=== PATIENT | female | born 1945 | race Caucasian/White ===

== ENCOUNTER 2016-12-14 11:51 | Inpatient (IN) | payer OTHER ==
[~2016-12-14] VITALS: Ht 157.5 cm; Wt 86.5 kg
[~2016-12-14 11:51] MED LIST: AMOX1TAB44 PO; CALCTAB5 PO; LISI-729 PO; PANT1TAB48 PO; TRAM-10 PO
[2016-12-14] MEDS ORDERED: HYDROmorphone INJ 1 MG/ML SYR ONE (12:07)
[2016-12-14] MEDS: HYDROmorphone INJ 1 MG/ML SYR IV STA ×2 (12:18→13:13)
--- NOTE | 2016-12-14 12:18 | EMERGENCY ROOM VISIT NOTE ---
History Report prepared by Eugenio: Robert Perez Under the Supervision of: Dr. Alisia Frost M.D. First contact with patient: 12:05 Chief Complaint: FALL Stated Complaint: FALL/ ANKLE PAIN History of Present Illness The patient is a 71 year old female who presents to the Emergency Room with complaints of an acute fall that occurred earlier this morning. The patient slipped down three steps that she says were wet. She has since had left ankle pain rated 9/10 in severity. The left leg was in a splint upon arrival with an obvious deformity. She denies any other injuries. The patient did not hit her head or lose consciousness. She is not on any blood thinners other than aspirin. The patient has otherwise felt okay prior to the fall. The patient has had hip surgeries in the past with Dr. Lemons, Orthopedist. Source of History: patient Onset: earlier this morning Position: other (global) Quality: other (fall) Timing: other (acute) Associated Symptoms: No LOC Note: Positive left ankle pain. Review of Systems See HPI for pertinent positives & negatives. A total of 10 systems reviewed and were otherwise negative. Past Medical & Surgical Medical Problems: (1) CHEST PAIN NOS (2) CHRONIC KIDNEY DISEASE, UNSPECIFIED (3) Hiatal hernia (4) Hypertension Nos (5) Knee Joint Replacement Status Family History Cancer Heart disease Social History Smoking Status: Never Smoker Marital Status: Occupation Status: retired Current/Historical Medications Scheduled Amoxicillin & Pot Clavulanate (Amoxicillin/Clavulanate P), 1 TAB PO QAM Calcium (Caltrate), 600 MG PO QAM Lisinopril (Zestril), 5 MG PO QAM Pantoprazole (Protonix), 40 MG PO QAM Scheduled PRN Tramadol (Ultram), 50 MG PO Q8H PRN for Pain Allergies Coded Allergies: No Known Allergies (Unverified , 06/23/16) Physical Exam Vital Signs Date Time Temp Pulse Resp B/P Pulse Ox O2 Delivery O2 Flow Rate FiO2 12/14/16 13:28 78 12/14/16 13:25 79 18 154/71 93 Room Air 12/14/16 11:56 36.6 84 18 161/86 98 Room Air Physical Exam CONSTITUTIONAL: Severe painful distress. HEENT: No icterus, moist mucous membranes NECK: No meningismus, trachea is midline. CARDIOVASCULAR: Regular rate, normal perfusion RESPIRATORY: Unlabored breathing. Clear to auscultation. GASTROINTESTINAL: Non-tender GENITOURINARY: No flank tenderness MUSCULOSKELETAL: Gross deformity of the left ankle, neurovascularly intact. NEUROLOGIC: No acute gross focal deficits. PSYCHIATRIC: Normal affect SKIN: Normal for ethnicity. Medical Decision & Procedures ER Provider Diagnostic Interpretation: X-ray results as stated below per interpretation by me and the radiologist. Left ankle 2 views CLINICAL HISTORY: Left ankle injury and pain. COMPARISON STUDY: None. FINDINGS: Displaced fractures involving the medial malleolus and distal fibula with associated lateral dislocation of the talus in relation to the tibia. There is diffuse soft tissue swelling. Plantar heel spur. The medial and lateral malleoli are fractures demonstrate up to 1 cm of lateral displacement. There is mild overlap of the lateral tibiotalar dislocation. IMPRESSION: A displaced bimalleolar left ankle fracture with a lateral ankle dislocation. Electronically signed by: Yony Royal M.D. 12/14/2016 1:12 PM Dictated Date/Time: 12/14/2016 1:09 PM Laboratory Results 12/14/16 13:10 Red Blood Count 3.86, Mean Corpuscular Volume 88.9, Mean Corpuscular Hemoglobin 29.8, Mean Corpuscular Hemoglobin Concent 33.5, Mean Platelet Volume 10.6, Neutrophils (%) (Auto) 76.2, Lymphocytes (%) (Auto) 16.5, Monocytes (%) (Auto) 5.8, Eosinophils (%) (Auto) 1.1, Basophils (%) (Auto) 0.1, Neutrophils # (Auto) 5.76, Lymphocytes # (Auto) 1.25, Monocytes # (Auto) 0.44, Eosinophils # (Auto) 0.08, Basophils # (Auto) 0.01 12/14/16 13:10 Test 12/14/16 13:10 White Blood Count 7.56 K/uL (4.8-10.8) Red Blood Count 3.86 M/uL (4.2-5.4) Hemoglobin 11.5 g/dL (12.0-16.0) Hematocrit 34.3 % (37-47) Mean Corpuscular Volume 88.9 fL (80-100) Mean Corpuscular Hemoglobin 29.8 pg (25-34) Mean Corpuscular Hemoglobin Concent 33.5 g/dl (32-36) Platelet Count 180 K/uL (130-400) Mean Platelet Volume 10.6 fL (7.4-10.4) Neutrophils (%) (Auto) 76.2 % Lymphocytes (%) (Auto) 16.5 % Monocytes (%) (Auto) 5.8 % Eosinophils (%) (Auto) 1.1 % Basophils (%) (Auto) 0.1 % Neutrophils # (Auto) 5.76 K/uL (1.4-6.5) Lymphocytes # (Auto) 1.25 K/uL (1.2-3.4) Monocytes # (Auto) 0.44 K/uL (0.11-0.59) Eosinophils # (Auto) 0.08 K/uL (0-0.5) Basophils # (Auto) 0.01 K/uL (0-0.2) RDW Standard Deviation 42.9 fL (36.4-46.3) RDW Coefficient of Variation 13.4 % (11.5-14.5) Immature Granulocyte % (Auto) 0.3 % Immature Granulocyte # (Auto) 0.02 K/uL (0.00-0.02) Anion Gap 9.0 mmol/L (3-11) Est Creatinine Clear Calc Drug Dose 42.6 ml/min Estimated GFR () 51.9 Estimated GFR (Non- 44.8 BUN/Creatinine Ratio 17.6 (10-20) Calcium Level 8.8 mg/dl (8.5-10.1) Labs reviewed by ED physician. Medications Administered Medications (Trade) Dose Ordered Sig/Lorri Route Start Time Stop Time Status Last Admin Dose Admin Hydromorphone HCl (Dilaudid Inj) 1 mg STK-MED ONCE .ROUTE 12/14/16 12:07 12/14/16 12:09 DC 12/14/16 12:20 1 MG Hydromorphone HCl (Dilaudid Inj) 1 mg PRN STAT IV 12/14/16 12:18 12/14/16 12:20 DC 12/14/16 13:13 1 MG Lorazepam (Ativan Inj) 0.5 mg NOW STAT IV 12/14/16 12:20 12/14/16 12:21 DC 12/14/16 12:37 0.5 MG ECG Indication: other (fall) Rate (beats per minute): 81 Rhythm: normal sinus Findings: other (normal axis, normal ST segments.) ED Course 1206: Past medical records reviewed. The patient was evaluated in room C4. A complete history and physical examination was performed. 1215: Ankle reduction attempted by me. 1218: Dilaudid 1 mg IV. 1220: Ativan 0.5 mg IV. 1352: Discussed the case with Jose L Shoemaker PA-C, [facility]. He will consult on the case. 1359: [facility] The patient will be evaluated. Medical Decision Differential diagnosis includes fracture. 71-year-old presents to the emergency department with her family for evaluation of left ankle deformity. She reports she's been and are otherwise normal state of health without cardiac, pulmonary or neurologic complaints of late. She states she simply tripped and fell on the way down the stairs with subsequent injury to her ankle and markedly deformity. She denies any head injury or other injuries. EKG demonstrated demonstrated a sinus rhythm without ST changes. Labs unremarkable. Initial reduction at the time of ED presentation was unsuccessful secondary to pain and muscular tenseness. After Dilaudid 1 mg IV and 0.5 mg Ativan patient was comfortable and reduction achieved without difficulty. Splint applied. Post reduction films obtained. Admission arranged with hospital service and consultation with orthopedics on-call. Consults Time Called: 1340 Consulting Physician: Jose L Shoemaker PA-C, [facility]. Returned Call: 1352 1352: Discussed the case with Jose L Shoemaker PA-C, [facility]. Additional Consults: Time Called: 1353 Consulted Physician: [facility]. Returned Call: 1359 Additional Comments: 1359: Discussed the case with [facility]. The patient will be evaluated. Impression Primary Impression: Ankle fracture Scribe Attestation The scribe's documentation has been prepared under my direction and personally reviewed by me in its entirety. I confirm that the note above accurately reflects all work, treatment, procedures, and medical decision making performed by me. Departure Information Dispostion Being Evaluated By Hospitalist Jamie Siddiqui M.D. (PCP) Patient Instructions My [facility]
[2016-12-14] MEDS ORDERED: LORAZEPAM 2 MG/ML 1 ML VIAL IV STA (12:20)
--- NOTE | 2016-12-14 13:13 | DIAGNOSTIC IMAGING REPORT ---
Left ankle 2 views CLINICAL HISTORY: Left ankle injury and pain. COMPARISON STUDY: None. FINDINGS: Displaced fractures involving the medial malleolus and distal fibula with associated lateral dislocation of the talus in relation to the tibia. There is diffuse soft tissue swelling. Plantar heel spur. The medial and lateral malleoli are fractures demonstrate up to 1 cm of lateral displacement. There is mild overlap of the lateral tibiotalar dislocation. IMPRESSION: A displaced bimalleolar left ankle fracture with a lateral ankle dislocation. Electronically signed by: Yony Royal M.D. 12/14/2016 1:12 PM Dictated Date/Time: 12/14/2016 1:09 PM
[2016-12-14 13:21] LABS: BASO % 0.1 %; BASO ABS # 0.01 K/uL (0-0.2); COMPLETE YES; EOS % 1.1 %; HEMATOCRIT 34.3 % (37-47); IG% 0.3 %; LYMPH % 16.5 %; LYMPH ABS # 1.25 K/uL (1.2-3.4); MEAN CELL VOLUME 88.9 fL (80-100); MEAN CORPUSCULAR HEMOGLOBIN 29.8 pg (25-34); MEAN CORPUSCULAR HGB CONC 33.5 g/dl (32-36); MEAN PLATELET VOLUME 10.6 fL (7.4-10.4); MONO % 5.8 %; NEUT % 76.2 %; PLATELET COUNT 180 K/uL (130-400); RED BLOOD COUNT 3.86 M/uL (4.2-5.4); WHITE BLOOD COUNT 7.56 K/uL (4.8-10.8)
[2016-12-14 13:38] LABS: BUN/CREATININE RATIO 17.6 (10-20); CALCIUM 8.8 mg/dl (8.5-10.1); CREATININE 1.2 mg/dl (0.60-1.20)
--- NOTE | 2016-12-14 14:09 | DIAGNOSTIC IMAGING REPORT ---
LEFT ANKLE 3 VIEWS CLINICAL HISTORY: Postreduction examination. FINDINGS: 3 portable views of the left ankle are correlated with study performed earlier the same day 12/14/2016. The examination is performed through a cast, obscuring fine bony detail. The skeletal structures are osteopenic. Again seen is a distracted spiral fracture through the distal fibular shaft. There is also avulsion of the medial malleolus. There is lateral distraction of the talus at the tibiotalar joint by at least 2 cm. Alignment has improved from the prereduction examination. There is also anterior distraction of the talus at the tibiotalar joint. There is a joint effusion with overlying soft tissue edema. A large plantar calcaneal enthesophyte is observed. Degenerative spurring is seen along the dorsal aspect of the tarsal bones. IMPRESSION: 1. Bimalleolar fracture as above. 2. There is persistent dislocation at the tibiotalar joint. Alignment has improved from the prereduction examination. Electronically signed by: Isai Quintanilla M.D. 12/14/2016 2:07 PM Dictated Date/Time: 12/14/2016 2:04 PM
[2016-12-14] MEDS ORDERED: MoRPHine SULFATE 2 MG/ML CARP ONE (14:19)
[2016-12-14] MEDS ORDERED: NURSING VERBAL MED ORDER ONE ×2 (14:30→20:30)
[2016-12-14] MEDS ORDERED: ACETAMINOPHEN 325 MG TAB PO PRN (14:45)
[2016-12-14] MEDS ORDERED: HEPARIN SOD 5000 UNIT/0.5 ML CARP SQ SCH (14:45)
[2016-12-14] MEDS ORDERED: ONDANSETRON INJ 2 MG/ML 2 ML VIAL IV PRN (14:45)
[2016-12-14] MEDS ORDERED: DiphenhydrAMINE HCL 50 MG/ML VIAL IV PRN (15:00)
--- NOTE | 2016-12-14 15:04 | DIAGNOSTIC IMAGING REPORT ---
CHEST ONE VIEW PORTABLE HISTORY: Preop. COMPARISON: Chest 06/11/2016. FINDINGS: There is again noted a large hiatus hernia. The heart is normal in size. A few bibasilar linear densities favor subsegmental atelectasis. The lungs are otherwise clear. No pleural effusions. No pneumothorax. IMPRESSION: No significant change compared to the prior study. No acute process. Stable large hiatus hernia. Electronically signed by: Yony Royal M.D. 12/14/2016 3:02 PM Dictated Date/Time: 12/14/2016 3:01 PM
[2016-12-14] MEDS ORDERED: MULT-506 PO (15:09)
[2016-12-14] MEDS ORDERED: HydrALAZINE HCL 20 MG/ML VIAL IV. PRN (15:15)
[2016-12-14] MEDS ORDERED: MoRPHine SULFATE 10 MG/ML CARP/VIAL IV PRN (15:15)
[2016-12-14] MEDS ORDERED: MoRPHine SULFATE 4 MG/ML 1 ML CARP\\VIAL IV PRN (15:15)
--- NOTE | 2016-12-14 15:22 | DIAGNOSTIC IMAGING REPORT ---
LEFT ANKLE 2 VIEWS CLINICAL HISTORY: Post reduction films AXIAL COMPARISON: 12/14/2016 DISCUSSION: 3 portable views are provided for interpretation. A fiberglass cast obscures the fine bony detail. There is a trimalleolar fracture present. There is persistent disruption of the ankle mortise with lateral translation of the talus with respect to the tibia. There is also slight posterior translation of the talus with respect to the tibia. IMPRESSION: 1. Trimalleolar fracture 2. Persistent disruption of the ankle mortise. Alignment is slightly improved when compared the preceding study. Electronically signed by: Jm Hubbard M.D. 12/14/2016 3:20 PM Dictated Date/Time: 12/14/2016 3:18 PM
--- NOTE | 2016-12-14 15:28 | CONSULTATION REPORT ---
DATE OF CONSULTATION: 12/14/2016 REASON FOR CONSULT: Left ankle fracture. HISTORY OF PRESENT ILLNESS: The patient is a 71-year-old white female who states that while walking down some stairs this morning she ended up slipping and falling. It was a witnessed fall with family and they are here presently with her. The patient denies any shortness of breath, chest pain or lightheadedness prior to the fall or after. She denies hitting her head and denies loss of consciousness. She had immediate pain in her left ankle and noted deformity without any bleeding. She was brought to the Emergency Room here at [facility] and was seen by the staff. X-rays were taken and it was found that she had an ankle fracture dislocation of the left ankle. Dr. 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 Jones pending medical clearance. PAST MEDICAL HISTORY: Hypertension, chronic kidney disease, history of hiatal hernia and DJD. She denies diabetes mellitus, tuberculosis, hepatitis, COPD, or rheumatic fever. PAST SURGICAL HISTORY: She has had both of her knees replaced by Dr. Taz Lemons. She has had a left total hip arthroplasty performed in the past by Dr. Lemons as well, cholecystectomy. FAMILY HISTORY: Father, history of heart disease and due to PR; history of breast carcinoma with 3 of her sisters. SOCIAL HISTORY: The patient is a . She does not use tobacco and does not use alcohol. MEDICATIONS: Lisinopril 5 mg p.o. daily, tramadol 50 mg p.o. q. 8 hours p.r.n. pain. ALLERGIES: NKDA. REVIEW OF SYSTEMS: As per admitting history and physical. PHYSICAL EXAMINATION: VITAL SIGNS: Current vital signs done at 1422 showed pulse 63, respirations 19, BP 225/70, pulse ox 98 on room air, temperature on admission to the ER was 36.6. GENERAL: The patient is a well-developed, well-nourished white female who is awake and alert to person and place. She is in [id number] amount of distress due to left ankle pain. She is pleasant and cooperative and answers all questions appropriately. EXTREMITIES: On examination of her left ankle, she has a current splint that was put on. However, the ankle on post-reduction films showed that it had slipped out reduction and needed to reduce one more time. At that point, the large portion of the splint was removed, although much of the cotton Webril was left intact. She has no open wounds that I can appreciate and the ankle is obviously swollen due to fracture. It also is mildly displaced at this time. Toes are pink and warm. Sensation is intact. She is able to move her toes quite well and capillary refill is less than 2 seconds. She denies pain in her left knee at this time. The right lower extremity is benign as far as pain and has good range of motion of her hip, knee and ankle. No pain in her left hip at this time and knee range of motion and hip range of motion are limited somewhat due to left ankle pain because the patient does with the extremity lifted. She has no pain in the bilateral shoulders, elbows or wrists and has good range of motion of both. She denies pain on palpation of her anterior, posterior neck at this point in time and otherwise exam is normal. Pulses are intact and 2/4 bilaterally. Neurovascular is intact as well. ASSESSMENT: Left ankle fracture dislocation. PLAN: The patient will need to undergo a re-reduction of her left ankle. Otherwise, she will be admitted by [facility] service and we will be the consultants. The patient will be placed on bed rest versus a bedside commode privileges with the left ankle to be placed up on at least 2 pillows for elevation, and ice and pain control will be provided by orthopedic service. Plans will be for ORIF of the left ankle tomorrow by Dr. Jones as long as the patient is medically cleared. PROCEDURES IN THE EMERGENCY ROOM: The patient was given 2 mg of morphine. The Orthoglass splint had been removed prior to examine the ankle. At that time, a little bit more of cotton Webril was applied to the extremity and then with gentle longitudinal traction and some lateral pressure, the ankle was then reduced and placed in another Orthoglass splint and the splint was let to dry and the patient tolerated the procedure well, was then placed on 2 pillows for elevation. After the procedure, her toes were pink and warm and had good sensation and she was moving the toes quite well. [facility]
--- NOTE | 2016-12-14 15:46 | History and Physical ---
History & Physical Date & Time of Service: Dec 14, 2016 at 15:19 Chief Complaint: Fall/ Left Ankle Pain Primary Care Physician: Jamie Guaman M.D. History of Present Illness 71 year old female who presents to the ER with left ankle pain after falling down the stairs today. Patient reports she was going down her outside stairs when she slipped on a wet step. She denies striking her head or loss of coconsciousness. She denies any associated lightheadedness, dizziness, or diaphoresis. No chest pain or shortness of breath. Reports she has been feeling well recently. Tolerating day to day activities without any problems or experiencing exertional chest pain or shortness of breath. She denies abdominal pain, nausea, vomiting, or diarrhea. No fever or chills. She denies any urinary symptoms. In the ER, patient is found to have a displaced bimalleolar left ankle fracture with a lateral ankle dislocation. Labs are unremarkable. BP is elevated however patient appears to be in a significant amount of pain. Vitals are otherwise stable. Past Medical/Surgical History Medical Problems: (1) CKD (chronic kidney disease), stage III Status: Chronic (2) Hiatal hernia Status: Chronic (3) HLD (hyperlipidemia) Status: Chronic (4) HTN (hypertension) Status: Chronic (5) Osteoporosis Status: Chronic Surgical Problems: (1) History of bilateral knee replacement Status: Chronic (2) History of cataract surgery Status: Chronic (3) History of total hip replacement Status: Chronic (4) Hx of cholecystectomy Status: Chronic Social History Smoking Status: Never Smoker Alcohol Use: none Housing status: lives with family Immunizations History of Influenza Vaccine: Yes Influenza Vaccine Date: Sep 07, 2016 History of Tetanus Vaccine?: Yes Tetanus Immunization Date: Sep 13, 2015 History of Pneumococcal: Yes Pneumococcal Date: Nov 04, 2015 Multi-Drug Resistant Organisms History of MDRO: No Allergies Coded Allergies: No Known Allergies (Unverified , 12/14/16) Home Medications Scheduled Lisinopril (Zestril), 5 MG PO QAM Multivitamin (Multivitamin), 1 TAB PO DAILY Scheduled PRN Tramadol (Ultram), 50 MG PO Q8H PRN for Pain Review of Systems 10 point review of systems was completed with the pertinent positives and negatives noted per the HPI Physical Exam Vital Signs Date Time Temp Pulse Resp B/P Pulse Ox O2 Delivery O2 Flow Rate FiO2 12/14/16 14:22 63 19 225/70 98 Room Air 12/14/16 13:28 78 12/14/16 13:25 79 18 154/71 93 Room Air 12/14/16 11:56 36.6 84 18 161/86 98 Room Air General Appearance: + mild distress (due to pain, currently having ankle casted ) Head: normocephalic Eyes: normal inspection ENT: hearing grossly normal Neck: supple, no JVD Respiratory/Chest: lungs clear, normal breath sounds, no respiratory distress Cardiovascular: regular rate, rhythm, no edema, normal peripheral pulses Abdomen/GI: normal bowel sounds, non tender, soft Extremities/Musculoskelatal: + pertinent finding (left ankle being placed in cast by orthopedics, CSM checks intact) Neurologic/Psych: no motor/sensory deficits, alert, normal mood/affect, oriented x 3 Skin: normal color, warm/dry Diagnostics Laboratory Results Results Past 24 Hours Test 12/14/16 13:10 Range/Units White Blood Count 7.56 4.8-10.8 K/uL Red Blood Count 3.86 4.2-5.4 M/uL Hemoglobin 11.5 12.0-16.0 g/dL Hematocrit 34.3 37-47 % Mean Corpuscular Volume 88.9 80-100 fL Mean Corpuscular Hemoglobin 29.8 25-34 pg Mean Corpuscular Hemoglobin Concent 33.5 32-36 g/dl Platelet Count 180 130-400 K/uL Mean Platelet Volume 10.6 7.4-10.4 fL Neutrophils (%) (Auto) 76.2 % Lymphocytes (%) (Auto) 16.5 % Monocytes (%) (Auto) 5.8 % Eosinophils (%) (Auto) 1.1 % Basophils (%) (Auto) 0.1 % Neutrophils # (Auto) 5.76 1.4-6.5 K/uL Lymphocytes # (Auto) 1.25 1.2-3.4 K/uL Monocytes # (Auto) 0.44 0.11-0.59 K/uL Eosinophils # (Auto) 0.08 0-0.5 K/uL Basophils # (Auto) 0.01 0-0.2 K/uL RDW Standard Deviation 42.9 36.4-46.3 fL RDW Coefficient of Variation 13.4 11.5-14.5 % Immature Granulocyte % (Auto) 0.3 % Immature Granulocyte # (Auto) 0.02 0.00-0.02 K/uL Sodium Level 143 136-145 mmol/L Potassium Level 4.0 3.5-5.1 mmol/L Chloride Level 110 98-107 mmol/L Carbon Dioxide Level 24 21-32 mmol/L Anion Gap 9.0 3-11 mmol/L Blood Urea Nitrogen 21 7-18 mg/dl Creatinine 1.20 0.60-1.20 mg/dl Est Creatinine Clear Calc Drug Dose 42.6 ml/min Estimated GFR () 51.9 Estimated GFR (Non- 44.8 BUN/Creatinine Ratio 17.6 10-20 Random Glucose 111 70-99 mg/dl Calcium Level 8.8 8.5-10.1 mg/dl Diagnostic Radiology LEFT ANKLE XR IMPRESSION: A displaced bimalleolar left ankle fracture with a lateral ankle dislocation. CXR IMPRESSION: No significant change compared to the prior study. No acute process. Stable large hiatus hernia. Impression Assessment and Plan LEFT ANKLE FRACTURE - admit to med/surg - fall appears to be mechanical - will require surgical repair - management as per ortho - due to patient's lack of cardiac history and cardiac complaints, she will be considered low risk and can proceed to surgery tomorrow without any further testing - EKG without ischemic changes, CXR without acute findings - noted normal stress echo in 2012 HTN - BP currently elevated, likely due to pain - continue home dose of Lisinopril, provide pain control - PRN Hydralazine CKD STAGE III - baseline creat runs in the low 1's, noted to be 1.2 today - continue to monitor, avoid nephrotoxic agents when able DVT PROPHYLAXIS - SCDs due to planned surgery tomorrow DISPO - In my clinical judgment this beneficiary meets acute admission criteria, established by [facility], that includes being hospitalized through two midnights. Attending Addendum Pt was seen and examined at bedside. 71 year old female with PMH of CKD, HTN, Dyslipidemia and hiatal hernia presents to the ER with left ankle fracture after she fell down from the stairs. she said that she slipped on a wet step. she said that she did not passed out or hit her head. Pt denies any chest pain, palpitation, dizziness and SOB. Granddaughters said pt is very active. Before the ankle fracture she used to go with family to do grocery. she use a cane to ambulate. she never had any SOB, orthopnea and chest pain. General- No acute distress Head- atraumatic Eyes- PERRL, EOMI ENT- oropharynx clear Neck- supple, no JVD Lungs- clear to auscultation and percussion Heart- regular rhythm; no murmur Extremities- no calf tenderness, Left ankle tenderness, left lower ext has cast on. LEFT ANKLE FRACTURE s/p mechanical fall Ankle xray showed trimalleolar fracture Ortho on board planning to go to surgery tomorrow Denies any history chest pain, palpitation, orthopnea and sob she used to go to the grocery store with family without any distress she had a functional status capacity with a METS greater than 4 before the ankle fracture last stress echo was 2012 that was negative for ischemia EKG shown no significant ST changes. CXR negative will repeat EKG in am She is medically stable to proceed to surgery tomorrow. Will keep NPO after midnight Lab, imaging and EKG reviewed Please refer to Marleen ELLIS documentation for others problems Daniel Subramanian MD VTE Prophylaxis VTE Risk Assessment Done? Y/N: Yes Risk Level: Moderate
[2016-12-14 16:49] VITALS: BP 137/79; PULSE 73; TEMP 36.5; O2SAT 96; Ht 157.5 cm; Wt 86.5 kg
[2016-12-14 17:10] VITALS: BP 137/79; PULSE 73; TEMP 36.5; O2SAT 96
[2016-12-14] MEDS: MoRPHine SULFATE 2 MG/ML CARP IV PRN ×2 (19:24→20:10)
[2016-12-14] MEDS ORDERED: LORAZEPAM 0.5 MG TAB PO PRN (20:00)
[2016-12-14 23:16] VITALS: BP 121/73; PULSE 64; TEMP 36.9; O2SAT 97
[2016-12-15] VITALS (7 sets, daily range): BP systolic 117–137; BP diastolic 71–80; PULSE 53–96; TEMP 36.5–37.1; O2SAT 95–99
[2016-12-15] MEDS: MoRPHine SULFATE 2 MG/ML CARP IV PRN (05:50)
[2016-12-15] MEDS ORDERED: CEFAZOLIN 2000 MG/60 ML D5W IV SCH (06:00)
[2016-12-15] MEDS ORDERED: CEFAZOLIN IV 2,000 MG in DEXTROSE 5% 50ML 50 ML IV SCH (06:00)
[2016-12-15 07:39] LABS: HEMATOCRIT 35.6 % (37-47); MEAN CELL VOLUME 90.6 fL (80-100); MEAN CORPUSCULAR HEMOGLOBIN 29.5 pg (25-34); MEAN CORPUSCULAR HGB CONC 32.6 g/dl (32-36); MEAN PLATELET VOLUME 10.9 fL (7.4-10.4); PLATELET COUNT 178 K/uL (130-400); RED BLOOD COUNT 3.93 M/uL (4.2-5.4); WHITE BLOOD COUNT 4.74 K/uL (4.8-10.8)
[2016-12-15 08:02] LABS: BUN/CREATININE RATIO 17.4 (10-20); CALCIUM 9.1 mg/dl (8.5-10.1); POTASSIUM 4.2 mmol/L (3.5-5.1)
[2016-12-15] MEDS: MULTIVITAMIN TAB PO SCH (09:00)
[2016-12-15] MEDS: LISINOPRIL 5 MG TAB PO SCH (09:00)
--- NOTE | 2016-12-15 10:08 | Orthopedic Progress Note ---
Orthopedic Progress Note Date of Service Dec 15, 2016. Subjective Reports: feeling well, Denies: SOB, chest pain, complaints, light headedness, nausea / vomiting Additional Notes: Patient comfortable this AM. Objective calves soft nontender, N/V intact, splint C/D/I, capillary refill less than 2 sec., A&O x3, toes mobile Date Time Temp Pulse Resp B/P Pulse Ox O2 Delivery O2 Flow Rate FiO2 12/15/16 07:05 36.5 76 18 117/74 96 Room Air 12/15/16 00:42 Room Air 12/14/16 23:16 36.9 64 16 121/73 97 Room Air 12/14/16 17:10 36.5 73 18 137/79 96 Room Air 12/14/16 16:49 36.5 73 18 137/79 96 Room Air 12/14/16 15:53 83 18 121/59 93 Room Air 12/14/16 14:22 63 19 225/70 98 Room Air 12/14/16 13:28 78 12/14/16 13:25 79 18 154/71 93 Room Air 12/14/16 11:56 36.6 84 18 161/86 98 Room Air Laboratory Results 24 Hours: Test 12/14/16 13:10 12/15/16 06:59 White Blood Count 7.56 K/uL Red Blood Count 3.86 M/uL Hemoglobin 11.5 g/dL 11.6 g/dL Hematocrit 34.3 % 35.6 % Mean Corpuscular Volume 88.9 fL Mean Corpuscular Hemoglobin 29.8 pg Mean Corpuscular Hemoglobin Concent 33.5 g/dl Platelet Count 180 K/uL Mean Platelet Volume 10.6 fL Neutrophils (%) (Auto) 76.2 % Lymphocytes (%) (Auto) 16.5 % Monocytes (%) (Auto) 5.8 % Eosinophils (%) (Auto) 1.1 % Basophils (%) (Auto) 0.1 % Neutrophils # (Auto) 5.76 K/uL Lymphocytes # (Auto) 1.25 K/uL Monocytes # (Auto) 0.44 K/uL Eosinophils # (Auto) 0.08 K/uL Basophils # (Auto) 0.01 K/uL Assessment & Plan Assessment: Left ankle fracture/ dislocation s/p reduction in the ER Plan: Patient is NPO for ORIF Left ankle fracture today per Dr. Jones. Consent obtained.
[2016-12-15] MEDS ORDERED: LIDOCAINE HCL 2% 2 ML VIAL (20MG/ML) ONE (15:57)
[2016-12-15] MEDS ORDERED: ROCURONIUM BROMIDE 10 MG/ML 5 ML VIAL ONE (15:57)
[2016-12-15] MEDS ORDERED: PROPOFOL IV EMULSION 10 MG/ML 20 ML VIAL IV ONE (15:57)
[2016-12-15] MEDS ORDERED: FENTANYL CITRATE INJ 50 MCG/1 ML 2 ML VIAL ONE ×3 (15:58→17:30)
[2016-12-15] MEDS ORDERED: ATROPINE SULFATE 0.1 MG/ML 5ML SYR IV PRN (16:00)
[2016-12-15] MEDS ORDERED: NALOXONE HCL 0.4 MG/1 ML VIAL/CARP IV PRN (16:00)
[2016-12-15] MEDS ORDERED: HYDROmorphone INJ 2 MG/ML SYR/VIAL IV PRN (16:00)
[2016-12-15] MEDS ORDERED: MEPERIDINE HCL 25 MG/ML CARP IV PRN (16:00)
[2016-12-15] MEDS ORDERED: PHENYLEPHRINE 100MCG/ML 5ML SYR IV PRN (16:00)
[2016-12-15] MEDS ORDERED: FENTANYL CITRATE INJ 50 MCG/1 ML 2 ML VIAL IV PRN (16:00)
[2016-12-15] MEDS ORDERED: EpHEDrine SULFATE INJ 50 MG/ML AMP IV PRN (16:00)
[2016-12-15] MEDS ORDERED: LABETALOL HCL IV 5 MG/ML 20ML IV PRN (16:00)
[2016-12-15] MEDS ORDERED: ONDANSETRON INJ 2 MG/ML 2 ML VIAL IV PRN (16:00)
[2016-12-15] MEDS ORDERED: FLUMAZENIL 0.1 MG/1 ML 10 ML VIAL IV PRN (16:00)
--- NOTE | 2016-12-15 16:06 | History & Physical Bridge Note ---
H&P Re-Evaluation Bridge Note: I have examined the patient, reviewed the History & Physical and in the interval since the performance of the History & Physical I have noted the following changes of clinical significance: No changes noted
[2016-12-15] MEDS ORDERED: ONDANSETRON INJ 2 MG/ML 2 ML VIAL ONE (16:34)
[2016-12-15] MEDS ORDERED: DEXAMETHASONE SOD INJ 4 MG/ML VIAL ONE (16:34)
[2016-12-15] MEDS ORDERED: BUPIVACAINE 0.5% INJ INJ ONE (18:10)
[2016-12-15] MEDS ORDERED: GLYCOPYRROLATE INJ 0.2 MG/ML VIAL ONE (18:12)
[2016-12-15] MEDS ORDERED: LABETALOL HCL IV 5 MG/ML 20ML ONE (18:12)
[2016-12-15] MEDS ORDERED: NEOSTIGMINE METHYLSULFATE 5 MG/5 ML SYR ONE (18:12)
--- NOTE | 2016-12-15 18:35 | [facility] Operative Report ---
Operative Report Operative Date Dec 15, 2016. Pre-Operative Diagnosis Left Ankle Fracture,trimalleolar displaced s/p fx dislocation Post-Operative Diagnosis same Procedure(s) Performed ORIF bimalleolar fixation of trimalleolar fracture left ankle Surgeon Dr. Jones Organisation And Methods Analyst Surgeon(s) Jose L Shoemaker PA-C Estimated Blood Loss 10ML Findings as above unstable trimalleolar fracture Specimens None Drains none Anesthesia general Complication(s) None Disposition Recovery Room / PACU Indications as above I attest to the content of the Intraoperative Record and any orders documented therein. Any exceptions are noted below.
[2016-12-15] MEDS ORDERED: ALUMINUM/MAGNESIUM/SIMETH (MAALOX MAX) 30 ML UDC PO PRN (18:45)
[2016-12-15] MEDS ORDERED: MAGNESIUM HYDROXIDE SUSP 30 ML UDC PO PRN (18:45)
[2016-12-15] MEDS ORDERED: ZOLPIDEM TARTRATE 5 MG TAB PO PRN (18:45)
[2016-12-15] MEDS ORDERED: DiphenhydrAMINE HCL 50 MG/ML VIAL IV PRN (18:45)
[2016-12-15] MEDS ORDERED: BISACODYL 10 MG SUPP PR PRN (18:45)
--- NOTE | 2016-12-15 19:16 | Anesthesiology Progress Note ---
Anesthesia Post Op Note Date & Time Dec 15, 2016 at 19:16 Vital Signs Pain Intensity: 0 Vital Signs Past 12 Hours Date Time Temp Pulse Resp B/P Pulse Ox O2 Delivery O2 Flow Rate FiO2 12/15/16 19:09 53 17 12/15/16 19:09 53 17 99 12/15/16 19:08 133/66 12/15/16 19:04 50 16 12/15/16 19:04 50 16 99 12/15/16 19:03 128/63 12/15/16 18:59 51 15 12/15/16 18:59 51 15 99 12/15/16 18:58 134/65 12/15/16 18:54 52 16 12/15/16 18:54 51 16 100 12/15/16 18:53 131/64 12/15/16 18:49 52 15 12/15/16 18:49 51 15 99 12/15/16 18:48 137/66 12/15/16 18:44 51 14 12/15/16 18:44 51 14 98 12/15/16 18:43 140/63 12/15/16 18:39 54 16 12/15/16 18:39 54 16 99 12/15/16 18:39 36.1 60 20 161/77 99 Nasal Cannula 4 12/15/16 15:10 Room Air 12/15/16 15:05 36.5 79 16 136/73 95 Room Air 12/15/16 07:30 Room Air Notes Mental Status: alert / awake / arousable, participated in evaluation Pt Amnestic to Procedure: Yes Nausea / Vomiting: adequately controlled Pain: adequately controlled Airway Patency, RR, SpO2: stable & adequate BP & HR: stable & adequate Hydration State: stable & adequate Anesthetic Complications: no major complications apparent
--- NOTE | 2016-12-15 19:38 | DIAGNOSTIC IMAGING REPORT ---
INTRAOPERATIVE RADIOGRAPHS CLINICAL HISTORY: Open reduction and internal fixation of the left ankle Fluoroscopy time: 27 seconds. FINDINGS: 3 spot fluoroscopic views of the left ankle are correlated with left ankle radiographs dated 12/14/2016. 2 cortical lag screws transfix a fracture of the medial malleolus. A buttress plate transfixes a spiral fracture of the distal fibula. Numerous cortical lag screws span the buttress plate. An additional cortical lag screw is present within the fibula. There is been congregation near-anatomic alignment. Soft tissue edema is noted. IMPRESSION: Intraoperative images from open reduction and internal fixation of bimalleolar left ankle fractures as above. Electronically signed by: Isai Quintanilla M.D. 12/15/2016 7:36 PM Dictated Date/Time: 12/15/2016 7:34 PM
--- NOTE | 2016-12-15 19:38 | DIAGNOSTIC IMAGING REPORT ---
INTRAOPERATIVE RADIOGRAPHS CLINICAL HISTORY: Open reduction and internal fixation of the left ankle Fluoroscopy time: 27 seconds. FINDINGS: 3 spot fluoroscopic views of the left ankle are correlated with left ankle radiographs dated 12/14/2016. 2 cortical lag screws transfix a fracture of the medial malleolus. A buttress plate transfixes a spiral fracture of the distal fibula. Numerous cortical lag screws span the buttress plate. An additional cortical lag screw is present within the fibula. There is been latter day near-anatomic alignment. Soft tissue edema is noted. IMPRESSION: Intraoperative images from open reduction and internal fixation of bimalleolar left ankle fractures as above. Electronically signed by: Isai Quintanilla M.D. 12/15/2016 7:36 PM Dictated Date/Time: 12/15/2016 7:34 PM
[2016-12-15] MEDS ORDERED: PROMETHAZINE HCL INJ 12.5 MG in SODIUM CHLORIDE 0.9% 50ML 50 ML IV ONE (20:00)
--- NOTE | 2016-12-15 20:02 | Progress Note ---
Medicine Progress Note Date & Time of Visit: Dec 15, 2016 at 19:57. Subjective Patient seen and examined. Anticipating surgery. Pain tolerable with medication. Objective Last 8 Hrs Date Time Temp Pulse Resp B/P Pulse Ox O2 Delivery O2 Flow Rate FiO2 12/15/16 19:54 55 16 12/15/16 19:54 55 16 100 12/15/16 19:53 122/58 12/15/16 19:49 56 16 100 12/15/16 19:49 55 16 12/15/16 19:48 128/61 12/15/16 19:47 55 17 12/15/16 19:47 54 17 100 12/15/16 19:43 123/60 12/15/16 19:42 53 16 12/15/16 19:42 53 16 99 12/15/16 19:38 125/62 12/15/16 19:37 51 16 98 12/15/16 19:37 51 16 12/15/16 19:36 50 15 12/15/16 19:36 51 15 98 12/15/16 19:33 132/60 12/15/16 19:31 50 19 12/15/16 19:31 50 19 98 12/15/16 19:28 140/66 12/15/16 19:26 58 20 99 12/15/16 19:26 59 20 12/15/16 19:23 178/97 12/15/16 19:21 62 17 100 12/15/16 19:21 63 17 12/15/16 19:19 37.0 12/15/16 19:18 129/64 12/15/16 19:16 52 14 98 12/15/16 19:16 52 14 12/15/16 19:15 51 19 99 12/15/16 19:15 51 19 12/15/16 19:13 137/63 12/15/16 19:10 54 15 99 12/15/16 19:10 54 15 12/15/16 19:09 53 17 12/15/16 19:09 53 17 99 12/15/16 19:08 133/66 12/15/16 19:04 50 16 12/15/16 19:04 50 16 99 12/15/16 19:03 128/63 12/15/16 18:59 51 15 12/15/16 18:59 51 15 99 12/15/16 18:58 134/65 12/15/16 18:54 52 16 12/15/16 18:54 51 16 100 12/15/16 18:53 131/64 12/15/16 18:49 52 15 12/15/16 18:49 51 15 99 12/15/16 18:48 137/66 12/15/16 18:44 51 14 12/15/16 18:44 51 14 98 12/15/16 18:43 140/63 12/15/16 18:39 54 16 12/15/16 18:39 54 16 99 12/15/16 18:39 36.1 60 20 161/77 99 Nasal Cannula 4 12/15/16 15:10 Room Air 12/15/16 15:05 36.5 79 16 136/73 95 Room Air Physical Exam: General-awake; alert; NAD Eyes-EOMI; no scleral icterus Neck-no stridor; trachea midline Lungs-CTA bilaterally; no wheezes/crackles Heart-RRR; no m/r/g Abdomen-soft; NTND; nBS Extremities-LLE in soft cast Neuro-no gross focal deficits Laboratory Results: Last 24 Hours Test 12/15/16 06:59 White Blood Count 4.74 K/uL Red Blood Count 3.93 M/uL Hemoglobin 11.6 g/dL Hematocrit 35.6 % Mean Corpuscular Volume 90.6 fL Mean Corpuscular Hemoglobin 29.5 pg Mean Corpuscular Hemoglobin Concent 32.6 g/dl RDW Standard Deviation 44.7 fL RDW Coefficient of Variation 13.4 % Platelet Count 178 K/uL Mean Platelet Volume 10.9 fL Sodium Level 142 mmol/L Potassium Level 4.2 mmol/L Chloride Level 107 mmol/L Carbon Dioxide Level 24 mmol/L Anion Gap 11.0 mmol/L Blood Urea Nitrogen 17 mg/dl Creatinine 1.00 mg/dl Est Creatinine Clear Calc Drug Dose 51.2 ml/min Estimated GFR () 64.7 Estimated GFR (Non- 55.8 BUN/Creatinine Ratio 17.4 Random Glucose 100 mg/dl Calcium Level 9.1 mg/dl Assessment & Plan LEFT ANKLE FRACTURE - fall appeared to be mechanical - Ortho consulted - EKG without ischemic changes, CXR without acute findings - noted normal stress echo in 2013 - no further workup recommended prior to surgery - s/p ORIF bimalleolar fixation of trimalleolar fracture left ankle HTN - normotensive - continue home dose of Lisinopril CKD STAGE III - baseline creat runs in the low 1's - continue to monitor, avoid nephrotoxic agents when able DVT PROPHYLAXIS - SCDs PT, OT and perinatal social worker for disposition. Procedures: ORIF bimalleolar fixation of trimalleolar fracture left ankle 12/15/16 Current Inpatient Medications: Current Inpatient Medications Medications (Trade) Dose Ordered Sig/Lorri Route Start Time Stop Time Status Last Admin Dose Admin Acetaminophen (Tylenol Tab) 650 mg Q4H PRN PO 12/14/16 14:45 01/13/17 14:44 12/14/16 19:53 650 MG Ondansetron HCl (Zofran Inj) 4 mg Q6H PRN IV 12/14/16 14:45 01/13/17 14:44 12/14/16 18:45 4 MG Diphenhydramine HCl (Benadryl Inj) 25 mg Q8 PRN IV 12/14/16 15:00 01/13/17 14:59 Morphine Sulfate (MoRPHine SULFATE INJ) 2 mg Q4HWA PRN IV 12/14/16 15:00 12/28/16 14:59 12/15/16 05:50 2 MG Lisinopril (Zestril Tab) 5 mg QAM PO 12/15/16 09:00 01/14/17 08:59 Multivitamins (Multivitamin Tab) 1 tab DAILY PO 12/15/16 09:00 01/14/17 08:59 Hydralazine HCl (HydrALAZINE INJ) 10 mg Q8H PRN IV. 12/14/16 15:15 01/13/17 15:14 Morphine Sulfate (MoRPHine SULFATE INJ) 4 mg Q4HWA PRN IV 12/14/16 15:15 12/28/16 15:14 12/15/16 11:13 4 MG Diphenhydramine HCl (Benadryl Cap) 25 mg Q8H PRN PO 12/14/16 15:15 01/13/17 15:14 Lorazepam (Ativan Tab) 0.5 mg Q6H PRN PO 12/14/16 20:00 01/13/17 19:59 Hydromorphone HCl (Dilaudid Inj) 0.5 mg Q5M PRN IV 12/15/16 16:00 12/15/16 21:00 Fentanyl Citrate (Fentanyl Inj) 25 mcg Q5M PRN IV 12/15/16 16:00 12/15/16 21:00 Naloxone HCl (Narcan Inj) 0.2 mg Q2M PRN IV 12/15/16 16:00 12/15/16 21:00 Meperidine HCl (Demerol Inj) 12.5 mg Q5M PRN IV 12/15/16 16:00 12/15/16 21:00 Flumazenil (Romazicon Inj) 0.2 mg Q2M PRN IV 12/15/16 16:00 12/15/16 21:00 Labetalol HCl (Normodyne IV) 5 mg Q5M PRN IV 12/15/16 16:00 12/15/16 21:00 Ephedrine Sulfate (EpHEDrine SULFATE INJ) 5 mg Q5M PRN IV 12/15/16 16:00 12/15/16 21:00 Atropine Sulfate (Atropine Sulfate 0.1MG/Ml Inj) 0.5 mg Q1M PRN IV 12/15/16 16:00 12/15/16 21:00 Phenylephrine HCl (Miguelito-Synephrine 500MCG/5ML Syr) 100 mcg Q5M PRN IV 12/15/16 16:00 12/15/16 21:00 Oxycodone HCl (Roxicodone Immediate Rel Tab) 1-2 TABS FOR PAIN 1 TABLET ... Q4H PRN PO 12/15/16 18:45 12/29/16 18:44 Magnesium Hydroxide (Milk Of Magnesia Susp) 30 ml Q6H PRN PO 12/15/16 18:45 01/14/17 18:44 Bisacodyl (Dulcolax Supp) 10 mg DAILY PRN RI 12/15/16 18:45 01/14/17 18:44 Docusate Sodium (coLACE CAP) 100 mg BID PO 12/15/16 21:00 01/14/17 20:59 Al Hydrox/Mg Hydrox/Simethicone (Maalox Max Susp) 15 ml Q4H PRN PO 12/15/16 18:45 01/14/17 18:44 Zolpidem Tartrate (Ambien Tab) 5 mg HSZ PRN PO 12/15/16 18:45 01/14/17 18:44 Pantoprazole Sodium 40 mg 40 mg QAM PO 12/16/16 09:00 01/15/17 08:59 Cefazolin Sodium/ Dextrose (Ancef Iv/D5 50ml) 60 ml @ 100 mls/hr Q8H IV 12/16/16 00:00 12/16/16 08:35 Aspirin 325 mg 325 mg DAILY PO 12/16/16 09:00 01/15/17 08:59 Promethazine HCl/ Sodium Chloride (Phenergan Inj/ Nss 50ml) 50.5 ml @ 204 mls/hr NOW ONCE IV 12/15/16 20:00 12/15/16 20:14 12/15/16 19:35 204 MLS/HR
[2016-12-15] MEDS: DOCUSATE SODIUM 100 MG CAP PO SCH (20:50)
[2016-12-15] MEDS: CEFAZOLIN IV 2,000 MG in DEXTROSE 5% 50ML 50 ML IV SCH (23:42)
--- NOTE | 2016-12-16 01:53 | OPERATIVE REPORT ---
DATE OF OPERATION: 12/15/2016 INDICATION FOR PROCEDURE: The patient is a 71-year-old female slipped on ice and fractured her left ankle. She sustained a fracture-dislocation of the ankle. This was attempted to be reduced by the Emergency Room physician, but got incomplete reduction. Our PA at [facility] Jose L Shoemaker, also went ahead and did secondary reduction, initially was able to reduce it but then the reduction slipped away as well upon splinting so he had incomplete reduction. Skin was not felt to be tented at all and she clearly has a trimalleolar ankle fracture and unstable ankle fracture which was closed at this time. PREOPERATIVE DIAGNOSIS: Closed unstable trimalleolar left ankle fracture. POSTOPERATIVE DIAGNOSIS: Same. Avulsion fracture of the anterior tib-fib ligament. PROCEDURE: Repair of the avulsion fracture of anterior tib-fib ligament. Bimalleolar ORIF of a trimalleolar ankle fracture. SURGEON: Dr. Jones. ULTRASONIC CLEANER: Jose L Shoemaker PA-C. ANESTHESIA: General. OPERATIVE PROCEDURE: The patient was taken to the operating room, anesthetized under general anesthetic. Pneumatic tourniquet was placed about her obese upper thigh. A sandbag was placed under her hip to help keep her leg rotated in neutral. Then her left lower extremity was prepped and draped in a sterile fashion. Ankle was clearly unstable, but reducible. The left lower extremity was prepped and draped with ChloraPrep. The leg was elevated, exsanguinated with an Esmarch bandage. Pneumatic tourniquet was raised to 350 mmHg. A lateral incision was made over the fibula. This was made in longitudinal fashion. Skin incised sharply. Subcutaneous flaps were elevated. Periosteum was already stripped from the fracture trauma. Further periosteal stripping was performed to reduce the fracture. The patient had a spiral fracture of the posterior spike of the fibula. The patient also had a fairly large avulsion fracture which was about 8 x 8 mm attached to the anterior tib-fib ligament. I felt this needed to be repaired for stability of the mortise. The wound was irrigated. The spiral fibular fracture was reduced and held with bone holding clamps. The fracture was lagged from anterior-superior to posterior-inferior. Synthes 3.5 mm cortical cancellous screw was used and a 5-hole Synthes fibular locking plate was contoured to lateral side of the fibula. We mapped out where the suture fixation holes were in the plate and where the screws would go first. Then I placed a drill hole into the fibula, placed a #2 FiberWire suture through the posterior fibula bone, placed a suture of the #2 FiberWire through the fibula and then out into the cancellous bone at the area of the avulsion fracture site. I drilled the hole into the large avulsion fracture fragment attached to the anterior tib-fib ligament, passed the needle through the avulsion fragment and then put pressure on the fragment to reduce it anatomically and tie down #2 Fiberwire suture. I cut the needle off and placed the tails of the suture through the holes in the plate and then placed the plate on to the fibula in appropriate position and sutured the sutures to the plate, suturing the fibula to the plate. The plate was transfixed with multiple locking screws distally, a lag screw 3.5 cortical proximally and 3 additional locking screws proximally to complete the anatomic fixation of the fibula. After irrigation, attention was taken to the medial ankle and a curvilinear incision was made to repair the medial malleolus. Skin was incised sharply. Subcutaneous flaps were elevated. The medial malleolus had a shear type medial malleolus fracture, the fracture being higher than the plafond. This required placement of screws more medial to lateral in angled position in order to not get shearing in the fracture site. We did this under fluoroscopic guidance, placed appropriate guide pins and for 4 mm Synthes cannulated screws drilled the outer cortex and placed the two 45 mm screws to transfix the malleolus to stable fixation. This ankle fracture also had some retinacular tearing with some avulsion fractures around the posterior tib tendon proximally, but distal retinaculum was still intact and the tendon was stable. These fracture fragments were unable to be repaired, so we just resected some of these fragments. The wound was irrigated and then the subcutaneous tissue closed with interrupted 2-0 Vicryl and the skin was closed with 4-0 nylon vertical mattress sutures. Sterile dressings were applied and a posterior and sugar tong splint were placed and Ludwig wrap. Tourniquet was let down prior to splinting, the patient had good capillary refill to the extremity, the patient tolerated the procedure well. Jose L Shoemaker PA-C was my engineer first assistant and participated in the entire procedure. He assisted in patient positioning, prepping, draping, assisted in soft tissue retraction, leg positioning. He assisted in the repair of the subcutaneous tissues and the skin and placed the splints and dressings and will participate in some of the postoperative care of the patient. I attest to the content of the Intraoperative Record and any orders documented therein. Any exceptio ns are noted below.
[2016-12-16 03:45] VITALS: BP 145/74; PULSE 72; TEMP 36.6; O2SAT 98
[2016-12-16] MEDS: OXYCODONE HCL IR 5 MG TAB (IMMEDIATE RELEASE) PO PRN ×3 (06:04→18:26)
[2016-12-16 07:26] LABS: MEAN CELL VOLUME 89.7 fL (80-100); MEAN CORPUSCULAR HEMOGLOBIN 29.7 pg (25-34); MEAN CORPUSCULAR HGB CONC 33.1 g/dl (32-36); MEAN PLATELET VOLUME 11.4 fL (7.4-10.4); PLATELET COUNT 204 K/uL (130-400); WHITE BLOOD COUNT 9.52 K/uL (4.8-10.8)
--- NOTE | 2016-12-16 07:49 | Orthopedic Progress Note ---
Orthopedic Progress Note Date of Service Dec 16, 2016. Subjective Post OP Day: 1 Reports: feeling well, Denies: complaints Objective N/V intact, splint C/D/I, capillary refill less than 2 sec., A&O x3, toes mobile Date Time Temp Pulse Resp B/P Pulse Ox O2 Delivery O2 Flow Rate FiO2 12/16/16 03:45 36.6 72 15 145/74 98 Nasal Cannula 2.0 12/15/16 23:20 37.1 60 14 137/71 99 Nasal Cannula 2.0 12/15/16 22:20 36.5 79 16 128/72 96 Nasal Cannula 2.0 12/15/16 21:20 36.5 53 16 131/77 98 Nasal Cannula 2.0 12/15/16 20:50 36.5 53 16 136/78 98 Nasal Cannula 2.0 12/15/16 20:20 Nasal Cannula 2.0 12/15/16 20:20 36.7 96 14 133/80 96 Nasal Cannula 2.0 12/15/16 20:20 Nasal Cannula 2.0 12/15/16 20:05 51 17 100 12/15/16 20:05 51 17 12/15/16 20:03 115/60 12/15/16 20:00 52 16 12/15/16 20:00 52 16 100 12/15/16 19:58 117/61 12/15/16 19:55 54 13 12/15/16 19:55 55 13 100 12/15/16 19:54 55 16 12/15/16 19:54 55 16 100 12/15/16 19:53 122/58 12/15/16 19:49 56 16 100 12/15/16 19:49 55 16 12/15/16 19:48 128/61 12/15/16 19:47 55 17 12/15/16 19:47 54 17 100 12/15/16 19:43 123/60 12/15/16 19:42 53 16 12/15/16 19:42 53 16 99 12/15/16 19:38 125/62 12/15/16 19:37 51 16 98 12/15/16 19:37 51 16 12/15/16 19:36 50 15 12/15/16 19:36 51 15 98 12/15/16 19:33 132/60 12/15/16 19:31 50 19 1/25/17 19:31 50 19 98 12/15/16 19:28 140/66 12/15/16 19:26 58 20 99 12/15/16 19:26 59 20 12/15/16 19:23 178/97 12/15/16 19:21 62 17 100 12/15/16 19:21 63 17 12/15/16 19:19 37.0 12/15/16 19:18 129/64 12/15/16 19:16 52 14 98 12/15/16 19:16 52 14 12/15/16 19:15 51 19 99 12/15/16 19:15 51 19 12/15/16 19:13 137/63 12/15/16 19:10 54 15 99 12/15/16 19:10 54 15 12/15/16 19:09 53 17 12/15/16 19:09 53 17 99 12/15/16 19:08 133/66 12/15/16 19:04 50 16 12/15/16 19:04 50 16 99 12/15/16 19:03 128/63 12/15/16 18:59 51 15 12/15/16 18:59 51 15 99 12/15/16 18:58 134/65 12/15/16 18:54 52 16 12/15/16 18:54 51 16 100 12/15/16 18:53 131/64 12/15/16 18:49 52 15 12/15/16 18:49 51 15 99 12/15/16 18:48 137/66 12/15/16 18:44 51 14 12/15/16 18:44 51 14 98 12/15/16 18:43 140/63 12/15/16 18:39 54 16 12/15/16 18:39 54 16 99 12/15/16 18:39 36.1 60 20 161/77 99 Nasal Cannula 4 12/15/16 15:10 Room Air 12/15/16 15:05 36.5 79 16 136/73 95 Room Air Laboratory Results 24 Hours: Test 12/16/16 06:15 Hematocrit 35.0 % Hemoglobin 11.6 g/dL Assessment & Plan Assessment: POD 1 s/p Left Ankle ORIF Plan: Begin PT/OT today NWB LLE May need Rehab facility pending PT progress. Inhouse Planning Pain Management: Morphine, Oxy IR DVT Prophylaxis: TEDs, SCDs, ASA Discharge Planning Discharge Planning: uncertain
[2016-12-16 07:52] LABS: BUN/CREATININE RATIO 11.1 (10-20); CALCIUM 9.2 mg/dl (8.5-10.1); CREATININE 1.4 mg/dl (0.60-1.20); POTASSIUM 4.2 mmol/L (3.5-5.1)
[2016-12-16] MEDS: CEFAZOLIN IV 2,000 MG in DEXTROSE 5% 50ML 50 ML IV SCH (07:53)
[2016-12-16 08:50] VITALS: BP 119/74; PULSE 91; TEMP 37; O2SAT 94
[2016-12-16] MEDS: ASPIRIN 325 MG ECTAB PO SCH (08:52)
[2016-12-16] MEDS: PANTOprazole SOD 40 MG TAB PO SCH (08:52)
[2016-12-16] MEDS: DOCUSATE SODIUM 100 MG CAP PO SCH ×2 (08:52→21:25)
[2016-12-16] MEDS: SODIUM CHLORIDE 0.9% 1000ML 1,000 ML IV SCH (08:52)
[2016-12-16] MEDS: MULTIVITAMIN TAB PO SCH (08:52)
[2016-12-16] MEDS ORDERED: MULTIVITAMIN TAB PO SCH (09:00)
[2016-12-16 10:50] VITALS: BP 137/73; PULSE 91; TEMP 37; O2SAT 94
[2016-12-16 15:35] VITALS: BP 129/71; PULSE 86; TEMP 37.4; O2SAT 98
[2016-12-16 18:50] VITALS: BP 126/69; PULSE 95; TEMP 37.1; O2SAT 92
--- NOTE | 2016-12-16 21:25 | Progress Note ---
Medicine Progress Note Date & Time of Visit: Dec 16, 2016 at 21:22. Subjective Patient seen and examined. Pain tolerable with current regimen. Objective Last 8 Hrs Date Time Temp Pulse Resp B/P Pulse Ox O2 Delivery O2 Flow Rate FiO2 12/16/16 18:50 37.1 95 18 126/69 92 Room Air 12/16/16 16:00 Room Air 12/16/16 15:35 37.4 86 18 129/71 98 Room Air Physical Exam: General-awake; alert; NAD Eyes-EOMI; no scleral icterus Neck-no stridor; trachea midline Lungs-CTA bilaterally; no wheezes/crackles Heart-RRR; no m/r/g Abdomen-soft; NTND; nBS Extremities-LLE in cast Neuro-no gross focal deficits Laboratory Results: Last 24 Hours Test 12/16/16 06:15 White Blood Count 9.52 K/uL Red Blood Count 3.90 M/uL Hemoglobin 11.6 g/dL Hematocrit 35.0 % Mean Corpuscular Volume 89.7 fL Mean Corpuscular Hemoglobin 29.7 pg Mean Corpuscular Hemoglobin Concent 33.1 g/dl RDW Standard Deviation 43.0 fL RDW Coefficient of Variation 13.2 % Platelet Count 204 K/uL Mean Platelet Volume 11.4 fL Sodium Level 141 mmol/L Potassium Level 4.2 mmol/L Chloride Level 106 mmol/L Carbon Dioxide Level 25 mmol/L Anion Gap 10.0 mmol/L Blood Urea Nitrogen 16 mg/dl Creatinine 1.40 mg/dl Est Creatinine Clear Calc Drug Dose 36.5 ml/min Estimated GFR () 43.1 Estimated GFR (Non- 37.2 BUN/Creatinine Ratio 11.1 Random Glucose 112 mg/dl Calcium Level 9.2 mg/dl Assessment & Plan LEFT ANKLE FRACTURE - fall appeared to be mechanical - Ortho consulted - EKG without ischemic changes, CXR without acute findings - noted normal stress echo in 2012 - no further workup recommended prior to surgery - s/p ORIF bimalleolar fixation of trimalleolar fracture left ankle 12/15/16 KATERINA - possibly prerenal from NPO status pre-surgery - gentle hydration with IVF's - hold lisinopril HTN - normotensive - hold Lisinopril as outline above CKD STAGE III - baseline creat runs in the low 1's DVT PROPHYLAXIS - SCDs PT, OT and social media senior associate for disposition. Awaiting rehab. Consultants: Orthopedics Procedures: ORIF bimalleolar fixation of trimalleolar fracture left ankle 12/15/16 Current Inpatient Medications: Current Inpatient Medications Medications (Trade) Dose Ordered Sig/Lorri Route Start Time Stop Time Status Last Admin Dose Admin Acetaminophen (Tylenol Tab) 650 mg Q4H PRN PO 12/14/16 14:45 01/13/17 14:44 12/14/16 19:53 650 MG Ondansetron HCl (Zofran Inj) 4 mg Q6H PRN IV 12/14/16 14:45 01/13/17 14:44 12/14/16 18:45 4 MG Diphenhydramine HCl (Benadryl Inj) 25 mg Q8 PRN IV 12/14/16 15:00 01/13/17 14:59 Morphine Sulfate (MoRPHine SULFATE INJ) 2 mg Q4HWA PRN IV 12/14/16 15:00 12/28/16 14:59 12/15/16 05:50 2 MG Lisinopril (Zestril Tab) 5 mg QAM PO 12/15/16 09:00 01/14/17 08:59 Future Hold Multivitamins (Multivitamin Tab) 1 tab DAILY PO 12/15/16 09:00 01/14/17 08:59 12/16/16 08:52 1 TAB Hydralazine HCl (HydrALAZINE INJ) 10 mg Q8H PRN IV. 12/14/16 15:15 01/13/17 15:14 Morphine Sulfate (MoRPHine SULFATE INJ) 4 mg Q4HWA PRN IV 12/14/16 15:15 12/28/16 15:14 12/15/16 11:13 4 MG Diphenhydramine HCl (Benadryl Cap) 25 mg Q8H PRN PO 12/14/16 15:15 01/13/17 15:14 Lorazepam (Ativan Tab) 0.5 mg Q6H PRN PO 12/14/16 20:00 01/13/17 19:59 Oxycodone HCl (Roxicodone Immediate Rel Tab) 1-2 TABS FOR PAIN 1 TABLET ... Q4H PRN PO 12/15/16 18:45 12/29/16 18:44 12/16/16 18:26 10 MG Magnesium Hydroxide (Milk Of Magnesia Susp) 30 ml Q6H PRN PO 12/15/16 18:45 01/14/17 18:44 Bisacodyl (Dulcolax Supp) 10 mg DAILY PRN MT 12/15/16 18:45 01/14/17 18:44 Docusate Sodium (coLACE CAP) 100 mg BID PO 12/15/16 21:00 01/14/17 20:59 12/16/16 08:52 100 MG Al Hydrox/Mg Hydrox/Simethicone (Maalox Max Susp) 15 ml Q4H PRN PO 12/15/16 18:45 01/14/17 18:44 Zolpidem Tartrate (Ambien Tab) 5 mg HSZ PRN PO 12/15/16 18:45 01/14/17 18:44 Pantoprazole Sodium (Protonix Tab) 40 mg QAM PO 12/16/16 09:00 01/15/17 08:59 12/16/16 08:52 40 MG Aspirin 325 mg 325 mg DAILY PO 12/16/16 09:00 01/15/17 08:59 12/16/16 08:52 325 MG Sodium Chloride (Nss 1000ml) 1,000 ml @ 50 mls/hr Q20H IV 12/16/16 08:45 01/15/17 08:44 12/16/16 08:52 50 MLS/HR
[2016-12-16 23:46] VITALS: BP 96/59; PULSE 90; TEMP 37.1; O2SAT 91
[2016-12-17] VITALS (8 sets, daily range): BP systolic 123–134; BP diastolic 69–74; PULSE 8–94; TEMP 36.7–37.2; O2SAT 91–97
[2016-12-17] MEDS: SODIUM CHLORIDE 0.9% 1000ML 1,000 ML IV SCH ×2 (04:04→22:58)
[2016-12-17 06:43] LABS: HEMATOCRIT 29.9 % (37-47); MEAN CELL VOLUME 89.8 fL (80-100); MEAN CORPUSCULAR HEMOGLOBIN 29.4 pg (25-34); MEAN CORPUSCULAR HGB CONC 32.8 g/dl (32-36); MEAN PLATELET VOLUME 10.7 fL (7.4-10.4); PLATELET COUNT 145 K/uL (130-400); RED BLOOD COUNT 3.33 M/uL (4.2-5.4); WHITE BLOOD COUNT 5.37 K/uL (4.8-10.8)
[2016-12-17 07:30] LABS: BUN/CREATININE RATIO 16.4 (10-20); CALCIUM 8.2 mg/dl (8.5-10.1); CREATININE 1.3 mg/dl (0.60-1.20); POTASSIUM 3.9 mmol/L (3.5-5.1)
[2016-12-17] MEDS: PANTOprazole SOD 40 MG TAB PO SCH (09:11)
[2016-12-17] MEDS: ASPIRIN 325 MG ECTAB PO SCH (09:11)
[2016-12-17] MEDS: MULTIVITAMIN TAB PO SCH (09:11)
[2016-12-17] MEDS: DOCUSATE SODIUM 100 MG CAP PO SCH ×2 (09:11→20:41)
--- NOTE | 2016-12-17 09:54 | Orthopedic Progress Note ---
Orthopedic Progress Note Date of Service Dec 17, 2016. Subjective Post OP Day: 2 Reports: feeling well, pain controlled w PO medications, Denies: SOB, calf pain , chest pain, complaints, light headedness, nausea / vomiting Objective calves soft nontender, N/V intact, splint C/D/I, capillary refill less than 2 sec., dressing C/D/I, A&O x3, toes mobile Date Time Temp Pulse Resp B/P Pulse Ox O2 Delivery O2 Flow Rate FiO2 12/17/16 08:10 Room Air 12/17/16 07:18 37.2 90 20 134/69 93 Room Air 12/17/16 05:10 37.1 88 18 123/72 91 12/17/16 04:10 37.1 88 18 123/72 91 Room Air 12/17/16 04:00 37.1 88 18 123/72 18 12/16/16 23:46 37.1 90 18 96/59 91 Room Air 12/16/16 19:30 Room Air 12/16/16 18:50 37.1 95 18 126/69 92 Room Air 12/16/16 16:00 Room Air 12/16/16 15:35 37.4 86 18 129/71 98 Room Air 12/16/16 10:50 37.0 91 16 137/73 94 Room Air 91 Laboratory Results 24 Hours: Test 12/17/16 06:20 Hematocrit 29.9 % Hemoglobin 9.8 g/dL Assessment & Plan Assessment: POD 2 s/p Left Ankle ORIF Plan: PT/OT today NWB LLE, KEEP DRESSING/SPLINT CLEAN, DRY AND IN TACT, DO NOT REMOVE. DVT PROPH- ASA DISPOSITION- WILL NEED REHAB OR SNF LIKELY, PER PRIMARY SERVICE ORTHOPEDICALLY WILL SIGN OFF, THANK YOU FOR CONSULT. FOLLOW UP WITH DR. CHRISTIANSON 12-14 DAYS POST OP, CALL [phone] FOR APPT. Inhouse Planning Pain Management: Morphine, Oxy IR DVT Prophylaxis: TEDs, SCDs, ASA Discharge Planning Discharge Planning: uncertain
[2016-12-17] MEDS: OXYCODONE HCL IR 5 MG TAB (IMMEDIATE RELEASE) PO PRN (12:26)
--- NOTE | 2016-12-17 18:39 | Progress Note ---
Medicine Progress Note Date & Time of Visit: Dec 17, 2016 at 18:37. Subjective Patient seen and examined. Feeling well and denies complaints. Objective Last 8 Hrs Date Time Temp Pulse Resp B/P Pulse Ox O2 Delivery O2 Flow Rate FiO2 12/17/16 15:28 36.7 90 18 131/69 93 Room Air Physical Exam: General-awake; alert; NAD Eyes-EOMI; no scleral icterus Neck-no stridor; trachea midline Lungs-CTA bilaterally; no wheezes/crackles Heart-RRR; no m/r/g Abdomen-soft; NTND; nBS Extremities-LLE in cast Neuro-no gross focal deficits Laboratory Results: Last 24 Hours Test 12/17/16 06:20 12/17/16 06:25 White Blood Count 5.37 K/uL Red Blood Count 3.33 M/uL Hemoglobin 9.8 g/dL Hematocrit 29.9 % Mean Corpuscular Volume 89.8 fL Mean Corpuscular Hemoglobin 29.4 pg Mean Corpuscular Hemoglobin Concent 32.8 g/dl RDW Standard Deviation 45.0 fL RDW Coefficient of Variation 13.8 % Platelet Count 145 K/uL Mean Platelet Volume 10.7 fL Sodium Level 141 mmol/L Potassium Level 3.9 mmol/L Chloride Level 108 mmol/L Carbon Dioxide Level 23 mmol/L Anion Gap 10.0 mmol/L Blood Urea Nitrogen 21 mg/dl Creatinine 1.30 mg/dl Est Creatinine Clear Calc Drug Dose 39.3 ml/min Estimated GFR () 47.1 Estimated GFR (Non- 40.7 BUN/Creatinine Ratio 16.4 Random Glucose 103 mg/dl Calcium Level 8.2 mg/dl Assessment & Plan LEFT ANKLE FRACTURE - fall appeared to be mechanical - Ortho consulted - EKG without ischemic changes, CXR without acute findings - noted normal stress echo in 2012 - no further workup recommended prior to surgery - s/p ORIF bimalleolar fixation of trimalleolar fracture left ankle 12/15/16 KATERINA - possibly prerenal from NPO status pre-surgery - gentle hydration with IVF's - hold lisinopril - downtrending HTN - normotensive - hold Lisinopril as outlined above CKD STAGE III - baseline creat runs in the low 1's DVT PROPHYLAXIS - SCDs PT, OT and case management social worker for disposition. Awaiting rehab. Consultants: Orthopedics Procedures: ORIF bimalleolar fixation of trimalleolar fracture left ankle 12/15/16 Current Inpatient Medications: Current Inpatient Medications Medications (Trade) Dose Ordered Sig/Lorri Route Start Time Stop Time Status Last Admin Dose Admin Acetaminophen (Tylenol Tab) 650 mg Q4H PRN PO 12/14/16 14:45 01/13/17 14:44 12/14/16 19:53 650 MG Ondansetron HCl (Zofran Inj) 4 mg Q6H PRN IV 12/14/16 14:45 01/13/17 14:44 12/14/16 18:45 4 MG Diphenhydramine HCl (Benadryl Inj) 25 mg Q8 PRN IV 12/14/16 15:00 01/13/17 14:59 Morphine Sulfate (MoRPHine SULFATE INJ) 2 mg Q4HWA PRN IV 12/14/16 15:00 12/28/16 14:59 12/15/16 05:50 2 MG Lisinopril (Zestril Tab) 5 mg QAM PO 12/15/16 09:00 01/14/17 08:59 Future Hold Multivitamins (Multivitamin Tab) 1 tab DAILY PO 12/15/16 09:00 01/14/17 08:59 12/17/16 09:11 1 TAB Hydralazine HCl (HydrALAZINE INJ) 10 mg Q8H PRN IV. 12/14/16 15:15 01/13/17 15:14 Morphine Sulfate (MoRPHine SULFATE INJ) 4 mg Q4HWA PRN IV 12/14/16 15:15 12/28/16 15:14 12/15/16 11:13 4 MG Diphenhydramine HCl (Benadryl Cap) 25 mg Q8H PRN PO 12/14/16 15:15 01/13/17 15:14 Lorazepam (Ativan Tab) 0.5 mg Q6H PRN PO 12/14/16 20:00 01/13/17 19:59 Oxycodone HCl (Roxicodone Immediate Rel Tab) 1-2 TABS FOR PAIN 1 TABLET ... Q4H PRN PO 12/15/16 18:45 12/29/16 18:44 12/17/16 12:26 10 MG Magnesium Hydroxide (Milk Of Magnesia Susp) 30 ml Q6H PRN PO 12/15/16 18:45 01/14/17 18:44 Bisacodyl (Dulcolax Supp) 10 mg DAILY PRN WA 12/15/16 18:45 01/14/17 18:44 Docusate Sodium (coLACE CAP) 100 mg BID PO 12/15/16 21:00 01/14/17 20:59 12/17/16 09:11 100 MG Al Hydrox/Mg Hydrox/Simethicone (Maalox Max Susp) 15 ml Q4H PRN PO 12/15/16 18:45 01/14/17 18:44 Zolpidem Tartrate (Ambien Tab) 5 mg HSZ PRN PO 12/15/16 18:45 01/14/17 18:44 Pantoprazole Sodium (Protonix Tab) 40 mg QAM PO 12/16/16 09:00 01/15/17 08:59 12/17/16 09:11 40 MG Aspirin 325 mg 325 mg DAILY PO 12/16/16 09:00 01/15/17 08:59 12/17/16 09:11 325 MG Sodium Chloride (Nss 1000ml) 1,000 ml @ 50 mls/hr Q20H IV 12/16/16 08:45 01/15/17 08:44 12/17/16 04:04 50 MLS/HR
[2016-12-18 06:47] LABS: HEMATOCRIT 29.2 % (37-47); MEAN CORPUSCULAR HEMOGLOBIN 29.6 pg (25-34); MEAN CORPUSCULAR HGB CONC 33.2 g/dl (32-36); MEAN PLATELET VOLUME 10.8 fL (7.4-10.4); PLATELET COUNT 148 K/uL (130-400); RED BLOOD COUNT 3.28 M/uL (4.2-5.4); WHITE BLOOD COUNT 4.75 K/uL (4.8-10.8)
[2016-12-18 07:05] LABS: BUN/CREATININE RATIO 18.4 (10-20); CALCIUM 8.1 mg/dl (8.5-10.1); CREATININE 1.1 mg/dl (0.60-1.20)
[2016-12-18 08:11] VITALS: BP 140/60; PULSE 74; TEMP 36.8; O2SAT 96
[2016-12-18] MEDS: ASPIRIN 325 MG ECTAB PO SCH (08:18)
[2016-12-18] MEDS: PANTOprazole SOD 40 MG TAB PO SCH (08:18)
[2016-12-18] MEDS: MULTIVITAMIN TAB PO SCH (08:18)
[2016-12-18] MEDS: DOCUSATE SODIUM 100 MG CAP PO SCH (08:18)
[2016-12-18 08:48] VITALS: O2SAT 96
[2016-12-18] MEDS: LISINOPRIL 5 MG TAB PO SCH (09:24)
[2016-12-18 11:52] VITALS: BP 120/73; PULSE 75; TEMP 36.6; O2SAT 98
[2016-12-18] MEDS ORDERED: CLC100 PO (14:30)
[2016-12-18] MEDS ORDERED: RXC5 PO (14:30)
[2016-12-18] MEDS ORDERED: ASPEC325 PO (14:30)
[2016-12-18] MEDS ORDERED: TYL325X PO (14:30)
[2016-12-18] MEDS ORDERED: DLCS PR (14:30)
[2016-12-18 14:33] VITALS: BP 120/73; PULSE 75; TEMP 36.6; O2SAT 98
--- NOTE | 2016-12-18 14:33 | Discharge Instructions ---
Discharge Instructions Admission Reason for Admission: Ankle Fracture, Left Discharge Discharge Diagnosis / Problem: Left ankle fracture s/p Discharge Goals Goal(s): Decrease discomfort, Increase independence Activity Recommendations Activity Limitations: as noted below Weightbearing Status: Left non-weightbearing . Instructions / Follow-Up Instructions / Follow-Up NWB LLE KEEP DRESSING/SPLINT CLEAN, DRY AND INTACT, DO NOT REMOVE FOLLOW UP WITH ORTHOPEDICS DR. CHRISTIANSON 12-14 DAYS POST OP (12/15/16 surgery date) . CALL [phone] FOR APPOINTMENT. Please follow up with Family Medicine Dr. Guaman within one week of discharge from [facility]. Current Hospital Diet Patient's current hospital diet: AHA Diet (Heart Healthy) Discharge Diet Recommended Diet: AHA Diet (Heart Healthy) Procedures Procedures Performed: Left Ankle Open Reduction Internal Fixation Pending Studies Studies pending at discharge: no Medical Emergencies . Who to Call and When: Medical Emergencies: If at any time you feel your situation is an emergency, please call 911 immediately. . Non-Emergent Contact Non-Emergency issues call your: Primary Care Provider . "Provider Documentation" section prepared by Denisse Chiang. VTE Core Measure Inpt VTE Proph given/why not?: Other Anticoagulation (Apirin)
--- NOTE | 2016-12-18 16:29 | Discharge Summary ---
Discharge Summary Admission Date: Dec 14, 2016 at 14:41 Discharge Date: Dec 18, 2016 Discharge Disposition: Rehab Principal Diagnosis: Left ankle fracture s/p repair Procedures: ORIF bimalleolar fixation of trimalleolar fracture left ankle 12/15/16 Consultations: Orthopedics Medication Reconciliation New Medications: Acetaminophen (Tylenol) 325 Mg Tab 650 MG PO Q4H PRN for Pain or Fever for 30 Days, #240 TAB Aspirin (Aspirin) 325 Mg Ectab 325 MG PO DAILY for 30 Days Bisacodyl (Bisac-Evac) 10 Mg Supp 10 MG NV DAILY PRN for Constipation for 30 Days, SUPP Docusate Sodium (Docusate Sodium) 100 Mg Cap 100 MG PO BID for 30 Days, #60 CAP Oxycodone HCl (Oxycodone HCl) 5 Mg Tab 5 MG PO Q4H PRN for Pain for 10 Days, #40 TAB Continued Medications: Lisinopril (Zestril) 5 Mg Tab 5 MG PO QAM, TAB Multivitamin (Multivitamin) Tab 1 TAB PO DAILY, TAB Discontinued Medications: Tramadol (Ultram) 50 Mg Tab 50 MG PO Q8H PRN for Pain, TAB Admission Information HPI (per Admitting provider): 71 year old female who presents to the ER with left ankle pain after falling down the stairs today. Patient reports she was going down her outside stairs when she slipped on a wet step. She denies striking her head or loss of coconsciousness. She denies any associated lightheadedness, dizziness, or diaphoresis. No chest pain or shortness of breath. Reports she has been feeling well recently. Tolerating day to day activities without any problems or experiencing exertional chest pain or shortness of breath. She denies abdominal pain, nausea, vomiting, or diarrhea. No fever or chills. She denies any urinary symptoms. In the ER, patient is found to have a displaced bimalleolar left ankle fracture with a lateral ankle dislocation. Labs are unremarkable. BP is elevated however patient appears to be in a significant amount of pain. Vitals are otherwise stable. Physical Exam (per Admitting): General Appearance: + mild distress (due to pain, currently having ankle casted ) Head: normocephalic Eyes: normal inspection ENT: hearing grossly normal Neck: supple, no JVD Respiratory/Chest: lungs clear, normal breath sounds, no respiratory distress Cardiovascular: regular rate, rhythm, no edema, normal peripheral pulses Abdomen/GI: normal bowel sounds, non tender, soft Extremities/Musculoskelatal: + pertinent finding (left ankle being placed in cast by orthopedics, CSM checks intact) Neurologic/Psych: no motor/sensory deficits, alert, normal mood/affect, oriented x 3 Skin: normal color, warm/dry Hospital Course Patient presented with left ankle fracture after a fall. Orthopedics was consulted. Patient underwent ORIF bimalleolar fixation of trimalleolar fracture left ankle on 12/15/16. Patient tolerated surgery well. Patient was started on aspirin for post-op DVT prophylaxis and this should be continued until patient follows up with Orthopedics. Post op course was complicated by KATERINA, felt likely to be prerenal from NPO status prior to surgery. Lisinopril was briefly held, patient received gentle hydration with IVF's and KATERINA resolved. Patient was deemed stable for discharge to rehab. Patient will need to follow up with Orthopedics and Family Medicine. PE on discharge: General- awake; alert; NAD Eyes- EOMI; no scleral icterus Neck- no stridor; trachea midline Lungs- CTA bilaterally; no wheezes/crackles Heart- RRR; no m/r/g Abdomen- soft; NTND; nBS Back- no gross abnormalities Extremities- no c/c/e; LLE in cast Neuro- no gross focal deficits Skin- no appreciable rash . Total time spent on discharge = This includes examination of the patient, discharge planning, medication reconciliation, and communication with other providers. Discharge Instructions Discharge Instructions Admission Reason for Admission: Ankle Fracture, Left Discharge Discharge Diagnosis / Problem: Left ankle fracture s/p Discharge Goals Goal(s): Decrease discomfort, Increase independence Activity Recommendations Activity Limitations: as noted below Weightbearing Status: Left non-weightbearing . Instructions / Follow-Up Instructions / Follow-Up NWB LLE KEEP DRESSING/SPLINT CLEAN, DRY AND INTACT, DO NOT REMOVE FOLLOW UP WITH ORTHOPEDICS DR. CHRISTIANSON 12-14 DAYS POST OP (12/15/16 surgery date) . CALL [phone] FOR APPOINTMENT. Please follow up with Family Medicine Dr. Guaman within one week of discharge from [facility]. Current Hospital Diet Patient's current hospital diet: AHA Diet (Heart Healthy) Discharge Diet Recommended Diet: AHA Diet (Heart Healthy) Procedures Procedures Performed: Left Ankle Open Reduction Internal Fixation Pending Studies Studies pending at discharge: no Medical Emergencies . Who to Call and When: Medical Emergencies: If at any time you feel your situation is an emergency, please call 911 immediately. . Non-Emergent Contact Non-Emergency issues call your: Primary Care Provider . "Provider Documentation" section prepared by Denisse Chiang. VTE Core Measure Inpt VTE Proph given/why not?: Other Anticoagulation (Apirin) Additional Copies To Jamie Guaman M.D. [place], [place]
== END 2016-12-18 15:30 | DRG 493 ==
LOC: ENRESERVTM → ENRESERVDT → C.EDC 11:51 → EDBD 11:51 → C.MSW 14:41 → UNDODISIN 12-15 14:10
PROVIDERS: ADMIT Internal Medicine; ATTEND Internal Medicine
PROC: 0QSH04Z Reposition Left Tibia with Internal Fixation Device, Open Approach (ICD-10-PCS; 2016-12-15)
PROC: 0QSK04Z Reposition Left Fibula with Internal Fixation Device, Open Approach (ICD-10-PCS; principal; 2016-12-15 07:30)
DX: S82.852A Displaced trimalleolar fracture of left lower leg, initial encounter for closed fracture (principal); N17.9 Acute kidney failure, unspecified; I12.9 Hypertensive chronic kidney disease with stage 1 through stage 4 chronic kidney disease, or unspecified chronic kidney disease; N18.3 Chronic kidney disease, stage 3 (moderate); W10.9XXA Fall (on) (from) unspecified stairs and steps, initial encounter; K46.9 Unspecified abdominal hernia without obstruction or gangrene; E78.5 Hyperlipidemia, unspecified; M81.0 Age-related osteoporosis without current pathological fracture; Z96.653 Presence of artificial knee joint, bilateral; Z98.49 Cataract extraction status, unspecified eye; S93.432A Sprain of tibiofibular ligament of left ankle, initial encounter; Z96.642 Presence of left artificial hip joint; Z80.3 Family history of malignant neoplasm of breast; Z82.49 Family history of ischemic heart disease and other diseases of the circulatory system

== ENCOUNTER 2021-07-01 15:59 | Inpatient (IN) ==
--- NOTE | 2021-07-01 16:10 | Emergency Department Note ---
History of Present Illness General Chief complaint: Fall Time Seen by Provider: 07/01/21 16:03 Source: EMS Limitations: altered mental status History of Present Illness Provider complaint: fall, head injury Onset (ago): hour(s) Treatments prior to arrival: none This is a 75-year-old female presents emergency department via EMS after an accidental fall at home with subsequent head injury. Patient's daughter was helping her get out of bed when she lost balance and fell. Daughter denies that there was any LOC or seizure-like activity. Patient does have history of severe dementia and daughter reports to EMS that she is in her usual mental state at this time. No anticoagulation per their report. Daughter had no other concerns for injury other than the obvious laceration to the right forehead/eyebrow region. Pt seen during a time of high acuity and national emergency pandemic while wearing PPE. Home Medications Medication Instructions Recorded Confirmed Type donepezil 5 mg tablet 5 mg PO DAILY 07/18/20 07/01/21 History lorazepam 0.5 mg tablet 0.5 mg PO TID PRN 07/18/20 07/01/21 History quetiapine 100 mg tablet 100 mg PO HS 07/18/20 07/01/21 History tramadol 50 mg tablet 50 - 100 mg PO Q6H PRN 07/18/20 07/01/21 History acetaminophen 650 mg 650 mg PO Q4H PRN 07/01/21 07/01/21 History tablet,extended release (Tylenol Arthritis Pain) hxbekqal-pewjefirc-iktlpkerc ear 4 drp OTIC (EAR) TID 07/01/21 07/01/21 History drops,suspension Allergies Allergy/AdvReac Type Severity Reaction Status Date / Time No Known Allergies Allergy Unverified 07/01/21 17:08 Past Med/Surg History Medical History CKD (chronic kidney disease), stage III Dementia HLD (hyperlipidemia) HTN (hypertension) Osteoporosis Surgical History History of bilateral knee replacement History of cataract surgery History of total hip replacement Hx of cholecystectomy Social History Smoking Status: Unknown if ever smoked Hx Alcohol Use: No Hx Substance Use: No Preferred Language: Hungarian Communication Ability: altered me Health Care Administrator Required: No Beliefs That Will Affect Care: None marital status: Current Living Situation: Family Other Information That Helps Us Care for You: No Feels Safe at Home: Yes Review of Systems A total of 10 systems reviewed and were otherwise negative All systems reviewed & are unremarkable except as noted in HPI & below Physical Exam Vital Signs Vital Signs - 24 hr 07/01/21 16:07 07/01/21 16:10 Temperature 36.6 C Temperature Source Oral Pulse Rate 110 H 107 H Respiratory Rate 18 22 Blood Pressure 168/71 H 168/71 H Blood Pressure Mean 103 103 Pulse Oximetry 98 Oxygen Delivery Method Room Air Sepsis Recent Fever Within 48 Hours No Sepsis New/Unexplained Change in Mental Status No Sepsis Action Taken by Nursing No Action Required GENERAL: alert, well appearing, well nourished, no distress, non-toxic HEAD: nc, 1.5 cm laceration noted laterally to the lateral right eyebrow, no active bleeding, no concurrent contusion, no other cephalhematoma, no other facial trauma or bony tenderness, no wong signs, no raccoon eyes EYE EXAM: normal conjunctiva, PERRL and EOM's grossly intact OROPHARYNX: no exudate, no erythema, lips, buccal mucosa, and tongue normal and mucous membranes are moist NECK: supple, no nuchal rigidity, no adenopathy, non-tender LUNGS: Clear to auscultation. Normal chest wall mechanics, no w/r/r HEART: no murmurs, S1 normal and S2 normal ABDOMEN: abdomen soft, non-tender, normo-active bowel sounds, no masses, no rebound or guarding. PELVIS: stable to compression, nontender with palpation BACK: Back is symmetrical on inspection and there is no deformity, no midline tenderness, no CVA tenderness. SKIN: no rashes and no bruising UPPER EXTREMITIES: upper extremities are grossly normal. FROM, nml pulses b/l. LOWER EXTREMITIES: No pitting edema. FROM, nml pulses b/l. Well healed vertical midline incision overlying knees bilaterally consistent with prior knee replacement NEURO EXAM: Confused, cranial nerves II-XII grossly intact, normal speech, no gross weakness of arms, no gross weakness of legs. Gross sensation intact. Course Course 605: Updated family member at bedside. I repaired the right facial laceration with Dermabond and Steri-Strips which patient tolerated well given her history of dementia. However bedside states the other reason they contacted 911 today was not so much for the fall but because of their concern for a large sacral/decubitus wound that would begin draining Tuesday night. With the ass istance of nursing staff the patient was rolled into the right decubitus position for exam. They did contact PCP and requested referral for wound care but have not received any return phone call. On my exam patient with a large open wound to the sacrum with visualization of underlying bony structures and surrounding cellulitis. There was obvious drainage from the wound with saturation of her adult diaper with the discharge material from the wound. This had an accompanying foul odor. Administered Medications Ascorbic Acid (Ascorbic Acid 500 Mg Tab) 500 mg PO QAM [facility] Stop: 08/02/21 13:29 Last Admin: 07/03/21 14:36 Dose: Not Given Documented by: [id number] Donepezil HCl (Donepezil Hcl 5 Mg Tab) 5 mg PO DAILY [facility] Stop: 08/01/21 08:59 Last Admin: 07/03/21 08:58 Dose: Not Given Documented by: [id number] Admin: 07/02/21 09:03 Dose: Not Given Documented by: [id number] Enoxaparin Sodium (Enoxaparin Inj 40 Mg/0.4 Ml Syr) 40 mg SQ QAM [facility] Stop: 08/01/21 08:59 Last Admin: 07/03/21 08:58 Dose: 40 mg Documented by: [id number] Admin: 07/02/21 09:05 Dose: 40 mg Documented by: [id number] Piperacillin Sod/Tazobactam (Sod 3.375 gm/ Dextrose) 115 mls @ 28.75 mls/hr IV Q8H [facility]; Protocol Stop: 08/13/21 05:59 Last Admin: 07/04/21 05:58 Dose: 28.8 mls/hr Documented by: [id number] Infusion: 07/04/21 02:11 Dose: 0 mls/hr Documented by: [id number] Admin: 07/03/21 21:10 Dose: 28.8 mls/hr Documented by: [id number] Infusion: 07/03/21 18:37 Dose: 0 mls/hr Documented by: [id number] Infusion: 07/03/21 18:37 Dose: 0 mls/hr Documented by: [id number] Admin: 07/03/21 14:48 Dose: 28.8 mls/hr Documented by: [id number] Infusion: 07/03/21 09:02 Dose: 0 mls/hr Documented by: [id number] Admin: 07/03/21 05:02 Dose: 28.8 mls/hr Documented by: [id number] Infusion: 07/03/21 01:30 Dose: 0 mls/hr Documented by: [id number] Admin: 07/02/21 21:23 Dose: 28.8 mls/hr Documented by: [id number] Infusion: 07/02/21 17:28 Dose: 0 mls/hr Documented by: [id number] Admin: 07/02/21 14:00 Dose: 28.8 mls/hr Documented by: [id number] Infusion: 07/02/21 09:08 Dose: 0 mls/hr Documented by: [id number] Admin: 07/02/21 05:04 Dose: 28.8 mls/hr Documented by: [id number] Daptomycin 300 mg/ Syringe 6 mls @ 3 mls/min IV Q24H [facility]; Protocol Stop: 08/13/21 09:59 Last Admin: 07/03/21 09:00 Dose: 3 mls/min Documented by: [id number] Admin: 07/02/21 09:05 Dose: 3 mls/min Documented by: [id number] Potassium Chloride/Sodium Chloride (1/2 Nss + 20meq Kcl 1000ml) 20 meq in 1,000 mls @ 75 mls/hr IV .[id number] ONE Stop: 07/04/21 12:49 Last Admin: 07/04/21 01:18 Dose: 75 mls/hr Documented by: [id number] Multivitamins (Multivitamin Tab) 1 tab PO QAM [facility] Stop: 08/02/21 13:29 Last Admin: 07/03/21 14:37 Dose: Not Given Documented by: [id number] Quetiapine Fumarate (Quetiapine Fumarate 100 Mg Tablet) 100 mg PO HS [facility] Stop: 08/01/21 20:59 Last Admin: 07/03/21 21:17 Dose: Not Given Documented by: [id number] Admin: 07/02/21 20:54 Dose: 100 mg Documented by: [id number] Discontinued Medications Bupivacaine HCl (Bupivacaine 0.25% 30 Ml Vial) Confirm Administered Dose 30 ml .ROUTE .STK-MED ONE Stop: 07/02/21 14:58 Last Admin: 07/02/21 15:57 Dose: 22 ml Documented by: [id number] Epinephrine HCl (Epinephrine Inj 1 Mg/Ml Amp) Confirm Administered Dose 1 mg .ROUTE .STK-MED ONE Stop: 07/02/21 14:58 Last Admin: 07/02/21 15:58 Dose: 0.15 mg Documented by: [id number] Vancomycin HCl 1,500 mg/ (Sodium Chloride) 530 mls @ 200 mls/hr IV NOW ONE Stop: 07/01/21 21:42 Last Infusion: 07/01/21 23:06 Dose: 200 mls/hr Documented by: [id number] Admin: 07/01/21 20:27 Dose: 200 mls/hr Documented by: [id number] Cefepime HCl (Maxipime) 2,000 mg in 20 mls @ 5 mls/min IV NOW STA; Protocol Stop: 07/01/21 20:58 Last Admin: 07/01/21 21:42 Dose: 5 mls/min Documented by: [id number] Sodium Chloride (1/2 Nss) 1,000 mls @ 80 mls/hr IV .[id number] ONE Stop: 07/02/21 10:39 Last Infusion: 07/02/21 11:33 Dose: 0 mls/hr Documented by: [id number] Admin: 07/02/21 00:47 Dose: 80 mls/hr Documented by: [id number] Sodium Chloride (1/2 Nss) 1,000 mls @ 60 mls/hr IV .[id number] [facility] Stop: 08/01/21 10:59 Last Infusion: 07/03/21 07:16 Dose: 0 mls/hr Documented by: [id number] Infusion: 07/02/21 22:00 Dose: 0 mls/hr Documented by: [id number] Infusion: 07/02/21 18:31 Dose: 60 mls/hr Documented by: [id number] Infusion: 07/02/21 14:19 Dose: 0 mls/hr Documented by: [id number] Admin: 07/02/21 11:33 Dose: 60 mls/hr Documented by: [id number] Sodium Chloride (1/2 Nss) 1,000 mls @ 200 mls/hr IV .Q5H ONE Stop: 07/03/21 02:19 Last Infusion: 07/03/21 03:01 Dose: 0 mls/hr Documented by: [id number] Admin: 07/02/21 21:40 Dose: 200 mls/hr Documented by: [id number] Lactated Ringer's (Lr) 1,000 mls @ 80 mls/hr IV .[id number] ONE Stop: 07/04/21 10:26 Last Admin: 07/03/21 23:13 Dose: Not Given Documented by: [id number] Ioversol (Optiray 320 100ml) 94 ml IV ONCE ONE Stop: 07/01/21 19:50 Last Admin: 07/01/21 19:49 Dose: 94 ml Documented by: [id number] Lorazepam (Lorazepam 0.5 Mg Tab) 0.5 mg PO NOW STA Stop: 07/01/21 21:32 Last Admin: 07/01/21 21:42 Dose: 0.5 mg Documented by: [id number] Olanzapine (Olanzapine 10 Mg/2.1 Ml Sdv) 2.5 mg IM NOW STA Stop: 07/01/21 22:10 Last Admin: 07/01/21 23:00 Dose: 2.5 mg Documented by: [id number] Medical Decision Making Differential Diagnosis Differential diagnoses include major intracranial, cervical, spinal, thoracic, abdominal, pelvic and neurologic injury. Fracture, contusion, sprain, strain, laceration, abrasions included as well. Medical Records Attestation: I reviewed the patient's medical records. Home Medications Current Medication List: was personally reviewed by me Laboratory Data Attestation: I reviewed the patient's lab results. Result diagrams: 07/03/21 08:31 07/03/21 08:31 Lab Results 07/01/21 07/01/21 07/01/21 Range/Units 18:26 18:26 21:23 WBC 14.66 H (4.8-10.8) K/uL RBC 4.07 L (4.2-5.4) M/uL Hgb 12.0 (12.0-16.0) g/dL Hct 36.7 L (37-47) % MCV 90.2 (80-100) fL MCH 29.5 (25-34) pg MCHC 32.7 (32-36) g/dL RDW Std Deviation 43.6 (36.4-46.3) fL RDW Coeff of Heydi 13.1 (11.5-14.5) % Plt Count 533 H (130-400) K/uL MPV 10.5 H (7.4-10.4) fL Immature Gran % (Auto) 0.8 % Neut % (Auto) 82.2 % Lymph % (Auto) 10.0 % [place] % (Auto) 6.6 % Eos % (Auto) 0.3 % Baso % (Auto) 0.1 % Neut # (Auto) 12.06 H (1.4-6.5) K/uL Lymph # (Auto) 1.46 (1.2-3.4) K/uL [place] # (Auto) 0.97 H (0.11-0.59) K/uL Eos # (Auto) 0.04 (0-0.5) K/uL Baso # (Auto) 0.01 (0-0.2) K/uL Immature Gran # (Auto) 0.12 H (0.00-0.02) K/uL Sodium 141 (136-145) mmol/L Potassium 4.2 (3.5-5.1) mmol/L Chloride 107 (98-107) mmol/L Carbon Dioxide 28 (21-32) mmol/L Anion Gap 6.0 (3-11) BUN 22 H (7-18) mg/dl Creatinine 0.87 (0.6-1.2) mg/dl Est Cr Clr Drug Dosing 49.0 ml/min Est GFR ( Amer) 74.5 ml/min Est GFR (Non-Af Amer) 64.3 ml/min BUN/Creatinine Ratio 25.0 H (10-20) Glucose 107 H (70-99) mg/dl Lactate 1.8 (0.4-2.0) mmol/L Calcium 9.2 (8.5-10.1) mg/dl Magnesium 2.1 (1.8-2.4) mg/dl Total Bilirubin 0.5 (0.2-1) mg/dl AST 75 H (15-37) U/L ALT 110 H (12-78) U/L Alkaline Phosphatase 190 H (45-117) U/L Total Creatine Kinase 185 (26-192) U/L Total Protein 7.3 (6.4-8.2) gm/dl Albumin 2.2 L (3.4-5.0) gm/dl Globulin 5.1 H (2.5-4.0) gm/dl Albumin/Globulin Ratio 0.4 L (0.9-2) TSH 4.050 (0.300-4.500) uIu/ml COVID-19 Eval Order SARS-CoV-2 (PCR) (Negative) 07/01/21 07/01/21 Range/Units 22:23 22:23 WBC (4.8-10.8) K/uL RBC (4.2-5.4) M/uL Hgb (12.0-16.0) g/dL Hct (37-47) % MCV (80-100) fL MCH (25-34) pg MCHC (32-36) g/dL RDW Std Deviation (36.4-46.3) fL RDW Coeff of Heydi (11.5-14.5) % Plt Count (130-400) K/uL MPV (7.4-10.4) fL Immature Gran % (Auto) % Neut % (Auto) % Lymph % (Auto) % [place] % (Auto) % Eos % (Auto) % Baso % (Auto) % Neut # (Auto) (1.4-6.5) K/uL Lymph # (Auto) (1.2-3.4) K/uL [place] # (Auto) (0.11-0.59) K/uL Eos # (Auto) (0-0.5) K/uL Baso # (Auto) (0-0.2) K/uL Immature Gran # (Auto) (0.00-0.02) K/uL Sodium (136-145) mmol/L Potassium (3.5-5.1) mmol/L Chloride (98-107) mmol/L Carbon Dioxide (21-32) mmol/L Anion Gap (3-11) BUN (7-18) mg/dl Creatinine (0.6-1.2) mg/dl Est Cr Clr Drug Dosing ml/min Est GFR ( Amer) ml/min Est GFR (Non-Af Amer) ml/min BUN/Creatinine Ratio (10-20) Glucose (70-99) mg/dl Lactate (0.4-2.0) mmol/L Calcium (8.5-10.1) mg/dl Magnesium (1.8-2.4) mg/dl Total Bilirubin (0.2-1) mg/dl AST (15-37) U/L ALT (12-78) U/L Alkaline Phosphatase (45-117) U/L Total Creatine Kinase (26-192) U/L Total Protein (6.4-8.2) gm/dl Albumin (3.4-5.0) gm/dl Globulin (2.5-4.0) gm/dl Albumin/Globulin Ratio (0.9-2) TSH (0.300-4.500) uIu/ml COVID-19 Eval Order Covid19 at [facility] SARS-CoV-2 (PCR) NEGATIVE (Negative) Imaging Data Radiologist's Impression: Cervical Spine CT 07/01/21 16:05 CT SCAN OF THE CERVICAL SPINE CLINICAL HISTORY: Trauma. Fall. COMPARISON STUDY: CT of the cervical spine dated 01/15/2016. TECHNIQUE: CT scan of the cervical spine is performed from the skull base to the upper thoracic spine. Images are reviewed in the axial, sagittal, and coronal planes. IV contrast was not administered for this examination. A dose lowering technique was utilized adhering to the principles of ALARA. CT DOSE: 404.08 mGycm FINDINGS: Skeletal structures: The skeletal structures are osteopenic. There is no evidence of fracture or subluxation involving the cervical spine. Vertebral body height and alignment are maintained. Hyperlordosis is noted. Small anterior osteophytes are seen throughout. The odontoid process and lateral masses are intact. The atlantoaxial articulation is preserved noting productive degenerative change. The spinous processes appear intact. There is moderate multilevel cervical spondylosis. Uncovertebral and facet arthropathy contribute to neural foraminal stenosis at several levels. Intervertebral discs: There is moderate disc space narrowing at C3-C4, C4-C5, and C6-C7. Central canal: Posterior disc osteophyte complexes at C3-C4, C4-C5, and C6-C7 may contribute to mild acquired compromise of the central canal. Soft tissues: The prevertebral and paraspinous soft tissues are within normal limits. There is atherosclerotic calcification of the carotid bulbs. Calvarium: The visualized calvarium at the skull base appears intact. Brain parenchyma: Partially visualized brain parenchyma at the skull base is within normal limits noting age-related involutional change. Mastoids: There is a small right mastoid effusion. The left mastoid air cells are well pneumatized. Lung apices: Clear as visualized. IMPRESSION: 1. There is no evidence of fracture or subluxation involving the cervical spine. 2. Osteopenia and spondylotic change as above. ACT 112: Negative or not required by law. Electronically signed by: Isai Quintanilla M.D. 07/01/2021 5:09 PM Chest X-Ray 07/01/21 16:05 XR chest 1V portable CLINICAL HISTORY: trauma COMPARISON STUDY: July 10, 2020 FINDINGS: No pneumothorax. No pleural effusion. There is large parahilar opacity seen on the right which might represent large hiatal hernia which was also seen on prior study or other etiology. Lung volumes are decreased with crowded lung markings. Cardiomediastinal silhouette is within normal limits in size. Pulmonary vasculature is indistinct.. Aorta is calcified. Osseous structures: Degenerative changes of the spine. IMPRESSION: 1. Questionable right parahilar mass which is seen on the right and might represent previously seen hiatal hernia versus other etiology. 2. No pneumothorax seen. 3. Low lung volumes which limits evaluation. ACT 112: Negative or not required by law. The above report was generated using voice recognition software. It may contain grammatical, syntax or spelling errors. Electronically signed by: Damaris Barnes DO 07/01/2021 4:[address] 07/01/21 16:05 CT head/brain wo con CLINICAL HISTORY: trauma COMPARISON STUDY: January 15, 2016 TECHNIQUE: Axial CT of the brain is performed from the vertex to the skull ba se. IV contrast was not administered for this examination. A dose lowering technique was utilized adhering to the principles of ALARA. CT DOSE: 1459.56 mGycm FINDINGS: No intra or extra-axial mass lesions are visualized. There is no CT evidence of acute cortical infarction. There is no evidence of midline shift. There is no acute hemorrhage. No acute depressed calvarial fractures are visualized. Evaluation is slightly limited due to motion and beam hardening artifact. There are patchy white matter hypodensities likely on a small vessel basis. There are minimal atrophic changes of brain parenchyma associated with ex vacuo dilatation of ventricles. There is no evidence of acute sinusitis IMPRESSION: No acute intracranial hemorrhage, no midline shift or space occupying lesions. Chronic small vessel ischemia and atrophic changes of brain parenchyma. Slightly limited exam due to motion and beam hardening artifact. ACT 112: Negative or not required by law. The above report was generated using voice recognition software. It may contain grammatical, syntax or spelling errors. Electronically signed by: Damaris Barnes DO 07/01/2021 4:33 PM Pelvis X-Ray 07/01/21 16:05 SINGLE VIEW PELVIS CLINICAL HISTORY: Fall. FINDINGS: 2 AP supine views of the pelvis are compared to study dated 01/15/2016. The skeletal structures are osteopenic. There is no radiographic evidence of fracture involving the hips or bony pelvis. A bipolar left hip arthroplasty is in near-anatomic alignment. No periprosthetic lucency is seen. Moderate arthritic change and joint space narrowing is seen in the right hip. Sclerotic change is noted in the sacroiliac joints and pubic symphysis. The overlying soft tissues are normal as visualized. Small phleboliths are noted in the pelvis. IMPRESSION: No acute bony abnormality is identified. Electronically signed by: Isai Quintanilla M.D. 07/01/2021 4:31 PM ECG Data Attestation: I personally reviewed and interpreted this ECG as follows: Indication: + altered mental status Rate (beats per minute): 110 Rhythm: + sinus tachycardia ECG Intervals/blocks: + Normal QRS and + Normal QT ECG [place]: + Normal ECG ST segments: + Normal ST segments MDM Narrative This is an elderly demented female who presents via EMS from home originally as a result of a fall. Patient evaluated for trauma and small facial laceration repaired with Steri-Strips and Dermabond. During my repeat evaluation family was then present and stated they would like us to examine her wound as she has a worsening sacral decubitus ulcer to they have tried to contact their family physician however. Upon viewing this area, it was clear that this was a significant wound with surrounding cellulitis. Following this patient was then evaluated for infection, labs are drawn and sent and patient sent back for CT imaging of the abdomen and pelvis due to the significance of the wound. CT suggested evolving sacral osteomyelitis. Patient started on IV antibiotics in case discussed with hospitalist for additional evaluation and management. Patient remained hemodynamically stable although mildly tachycardic. Tachycardia may be from agitation, dehydration, or evolving infection. I do not suspect bacteremia/sepsis at this time. Patient was started on IV fluid rehydration. Patient was agitated at times from being here and from interventions performed due to her significant underlying dementia. An order was placed for continuous cardiac monitoring. The monitor shows a rate of _102_ with _sinus tachycardia_ rhythm. Impression & Plan Decubital ulcer, Dementia, Fall, Sacral osteomyelitis, CHI (closed head injury), Facial laceration Discharge Plan Visit Data Chief Complaint: Fall ED Provider: Raven Morris Discharge Problem: Decubital ulcer, Dementia, Fall, Sacral osteomyelitis, CHI (closed head injury), Facial laceration Patient Disposition: Admitted As Inpatient Condition: Good Discharge Instructions Interventions: ED Discharge Assessment Last Done: 07/02/21 01:28 Discharge Problem: Decubital ulcer Qualifiers: Pressure injury location: sacral region Pressure injury stage: unspecified pressure injury stage Qualified Code(s): L89.159 - Pressure ulcer of sacral region, unspecified stage Dementia Qualifiers: Dementia type: unspecified type Dementia behavioral disturbance: with behavioral disturbance Qualified Code(s): F03.91 - Unspecified dementia with behavioral disturbance Fall Qualifiers: Encounter type: initial encounter Qualified Code(s): W19.XXXA - Unspecified fall, initial encounter CHI (closed head injury) Qualifiers: Encounter type: initial encounter Qualified Code(s): S09.90XA - Unspecified injury of head, initial encounter Facial laceration Qualifiers: Encounter type: initial encounter Qualified Code(s): S01.81XA - Laceration without foreign body of other part of head, initial encounter
--- NOTE | 2021-07-01 16:29 | XRay Report ---
XR chest 1V portable CLINICAL HISTORY: trauma COMPARISON STUDY: July 10, 2020 FINDINGS: No pneumothorax. No pleural effusion. There is large parahilar opacity seen on the right which might represent large hiatal hernia which wa s also seen on prior study or other etiology. Lung volumes are decreased with crowded lung markings. Cardiomediastinal silhouette is within normal limits in size. Pulmonary vasculature is indistinct.. Aorta is calcified. Osseous structures: Degenerative changes of the spine. IMPRESSION: 1. Questionable right parahilar mass which is seen on the right and might represent previously seen hiatal hernia versus other etiology. 2. No pneumothorax seen. 3. Low lung volumes which limits evaluation. ACT 112: Negative or not required by law. The above report was generated using voice recognition software. It may contain grammatical, syntax o r spelling errors. Electronically signed by: Damaris Barnes DO 07/01/2021 4:27 PM
--- NOTE | 2021-07-01 16:32 | XRay Report ---
SINGLE VIEW PELVIS CLINICAL HISTORY: Fall. FINDINGS: 2 AP supine views of the pelvis are compared to study dated 01/15/2016. The skeletal structu res are osteopenic. There is no radiographic evidence of fracture involving the hips or bony pelvis. A bipolar left hip arthroplasty is in near-anatomic alignment. No periprosthetic lucency is seen. Mod erate arthritic change and joint space narrowing is seen in the right hip. Sclerotic change is noted in the sacroiliac joints and pubic symphysis. The overlying soft tissues are normal as visualized. Sm all phleboliths are noted in the pelvis. IMPRESSION: No acute bony abnormality is identified. Electronically signed by: Isai Quintanilla M.D. 07/01/2021 4:31 PM
--- NOTE | 2021-07-01 16:35 | CT Scan Report ---
CT head/brain wo con CLINICAL HISTORY: trauma COMPARISON STUDY: January 15, 2016 TECHNIQUE: Axial CT of the brain is performed from the vertex to the skull base. IV contrast was not administered for this examination. A dose lowering technique was utilized adhering to the principles of ALARA. CT DOSE: 1459.56 mGycm FINDINGS: No intra or extra-axial mass lesions are visualized. There is no CT evidence of acute cortical infarc tion. There is no evidence of midline shift. There is no acute hemorrhage. No acute depressed calvar ial fractures are visualized. Evaluation is slightly limited due to motion and beam hardening artifact. There are patchy white matter hypodensities likely on a small vessel basis. There are minimal atrophic changes of brain parenchyma associated with ex vacuo dilatation of ventric les. There is no evidence of acute sinusitis IMPRESSION: No acute intracranial hemorrhage, no midline shift or space occupying lesions. Chronic small vessel ischemia and atrophic changes of brain parenchyma. Slightly limited exam due to motion and beam hardening artifact. ACT 112: Negative or not required by law. The above report was generated using voice recognition software. It may contain grammatical, syntax o r spelling errors. Electronically signed by: Damaris Barnes DO 07/01/2021 4:33 PM
--- NOTE | 2021-07-01 17:11 | CT Scan Report ---
CT SCAN OF THE CERVICAL SPINE CLINICAL HISTORY: Trauma. Fall. COMPARISON STUDY: CT of the cervical spine dated 01/15/2016. TECHNIQUE: CT scan of the cervical spine is performed from the skull base to the upper thoracic spine . Images are reviewed in the axial, sagittal, and coronal planes. IV contrast was not administered fo r this examination. A dose lowering technique was utilized adhering to the principles of ALARA. CT DOSE: 404.08 mGycm FINDINGS: Skeletal structures: The skeletal structures are osteopenic. There is no evidence of fracture or subl uxation involving the cervical spine. Vertebral body height and alignment are maintained. Hyperlordos is is noted. Small anterior osteophytes are seen throughout. The odontoid process and lateral masses are intact. The atlantoaxial articulation is preserved noting productive degenerative change. The spi nous processes appear intact. There is moderate multilevel cervical spondylosis. Uncovertebral and fa cet arthropathy contribute to neural foraminal stenosis at several levels. Intervertebral discs: There is moderate disc space narrowing at C3-C4, C4-C5, and C6-C7. Central canal: Posterior disc osteophyte complexes at C3-C4, C4-C5, and C6-C7 may contribute to mild acquired compromise of the central canal. Soft tissues: The prevertebral and paraspinous soft tissues are within normal limits. There is athero sclerotic calcification of the carotid bulbs. Calvarium: The visualized calvarium at the skull base appears intact. Brain parenchyma: Partially visualized brain parenchyma at the skull base is within normal limits not ing age-related involutional change. Mastoids: There is a small right mastoid effusion. The left mastoid air cells are well pneumatized. Lung apices: Clear as visualized. IMPRESSION: 1. There is no evidence of fracture or subluxation involving the cervical spine. 2. Osteopenia and spondylotic change as above. ACT 112: Negative or not required by law. Electronically signed by: Isai Quintanilla M.D. 07/01/2021 5:09 PM
[2021-07-01 18:39] LABS: Basophils # (auto) 0.01 K/uL (0-0.2); Basophils % (auto) 0.1 %; Eosinophils # (auto) 0.04 K/uL (0-0.5); Eosinophils % (auto) 0.3 %; Hematocrit (blood only) 36.7 % (37-47); Immature Granulocytes # (auto) 0.12 K/uL (0.00-0.02); Immature Granulocytes % (auto) 0.8 %; Lymphocytes # (auto) 1.46 K/uL (1.2-3.4); Mean Corpuscular Hemoglobin 29.5 pg (25-34); Mean Corpuscular Hgb Conc 32.7 g/dL (32-36); Mean Corpuscular Volume 90.2 fL (80-100); Mean Platelet Volume 10.5 fL (7.4-10.4); Monocytes # (auto) 0.97 K/uL (0.11-0.59); Monocytes % (auto) 6.6 %; Neutrophils # (auto) 12.06 K/uL (1.4-6.5); Neutrophils % (auto) 82.2 %; Platelet Count 533 K/uL (130-400); RDW Coefficient of Variation 13.1 % (11.5-14.5); RDW Standard Deviation 43.6 fL (36.4-46.3); Red Blood Count 4.07 M/uL (4.2-5.4); White Blood Count 14.66 K/uL (4.8-10.8)
[2021-07-01 18:54] LABS: Albumin Level 2.2 gm/dl (3.4-5.0); Calcium 9.2 mg/dl (8.5-10.1); Est GFR (African American) 74.5 ml/min; Est GFR (Non-African American) 64.3 ml/min; Potassium 4.2 mmol/L (3.5-5.1)
[2021-07-01 18:57] LABS: Albumin Globulin Ratio 0.4 (0.9-2); Bilirubin,Total 0.5 mg/dl (0.2-1); Globulin 5.1 gm/dl (2.5-4.0); Total Protein 7.3 gm/dl (6.4-8.2)
[2021-07-01] MEDS ORDERED: VANCOMYCIN HCL 1,500 MG in SODIUM CHLORIDE 0.9% 500 ML IV ONE (19:04)
[2021-07-01] MEDS ORDERED: VANCOMYCIN CONSULT ACTIVE PRN (19:04)
[2021-07-01] MEDS ORDERED: OPTIRAY 320 100ml IV ONE (19:49)
--- NOTE | 2021-07-01 20:49 | CT Scan Report ---
CT SCAN OF THE ABDOMEN AND PELVIS WITH IV CONTRAST CLINICAL HISTORY: Sacral decubitus ulcer. Draining wound. COMPARISON STUDY: Abdominal CT dated 06/11/2016. TECHNIQUE: Following the IV administration of 94 cc of Optiray 320, CT scan of the abdomen and pelvi s is performed from the lung bases to the proximal femora. Images are reviewed in the axial, sagittal , and coronal planes. IV contrast was administered without complication. A dose lowering technique wa s utilized adhering to the principles of ALARA. The examination is degraded by motion artifact, as we ll as by streak artifact from the arms which could not be elevated above the abdomen or pelvis. CT DOSE: 577.46 mGy.cm FINDINGS: Lung bases: The heart is normal in size and without pericardial effusion. The coronary arteries are d ensely calcified. The lung bases are grossly clear noting bibasilar atelectasis. There is a large hia yohana hernia which contains the duodenum and a nonobstructed segment of colon as well as stomach. Liver: The contrast-enhanced liver is normal in size, contour, and attenuation. There is no intrahepa tic biliary ductal dilatation. The hepatic veins and portal veins are patent. Gallbladder: Surgically absent noting clips in the gallbladder fossa. Spleen: Normal in size and attenuation. Pancreas: Unremarkable. Adrenal glands: Unremarkable. Kidneys: The contrast enhanced kidneys are atrophic and without hydronephrosis. The kidneys enhance s ymmetrically. There are numerous bilateral renal sinus cyst. A 5.3 cm cyst arises from the right lowe r pole. Abdominal vasculature: The abdominal aorta is normal in course and caliber noting advanced atheroscle rotic calcification. Bowel: There is rectosigmoid fecal retention and mild/moderate constipation. No bowel obstruction is seen. The appendix is not visualized. Peritoneum: There is no intraperitoneal free air or abdominal ascites. Lymphadenopathy: None. Pelvic viscera: Evaluation of the pelvis is significantly degraded by streak artifact from a left hip arthroplasty. There is an 8.6 cm simple appearing cystic lesion in the central pelvis, likely relate d to the right ovary. This has increased in size dating back to 2016. The bladder and uterus are norm al as imaged. Skeletal structures: The skeletal structures are heterogeneously osteopenic. There is moderate lumbos acral spondylosis. No lytic or blastic lesions are seen. A left hip arthroplasty is in place. Erosive /destructive change is seen in the distal sacrum and coccyx consistent with osteomyelitis. Soft tissues: There is a decubitus ulceration overlying the inferior aspect of the sacrum along the s uperior aspect of the gluteal crease. There is a multiloculated and peripherally enhancing gas and fl uid containing collection is region. This measures approximately 4 x 3 x 2 cm end there is significan t stranding inflammation. This extensive dermal surface, and inflammatory change also involves the sa rosario and coccyx with associated osteomyelitis. Inflammatory change extends anterior to the eroded sac rum. IMPRESSION: 1. Streak and motion compromised examination 2. There is a sacral decubitus ulceration is detailed above with evidence of significant surrounding cellulitis and soft tissue abscess. 3. There is associated erosive/destructive change involving the lower sacrum and coccyx consistent wi th osteomyelitis. 4. There is an 8.6 cm simple cystic lesion in the pelvis, likely related to the right ovary. This has increased in size dating back to 2016, and nonemergent pelvic ultrasound and gynecology assessment i s recommended. 5. There is a large complex hiatal hernia as above. 6. Additional findings as detailed above. ACT 112: Negative or not required by law. Electronically signed by: Isai Quintanilla M.D. 07/01/2021 8:48 PM
[2021-07-01] MEDS ORDERED: CEFEPIME 2,000 MG/20 ML VIAL IV STA (20:55)
--- NOTE | 2021-07-01 21:23 | History & Physical Report ---
Date of Service July 01, 2021 Assessment & Plan (1) Decubital ulcer: (2) Fall: (3) HTN (hypertension): (4) HLD (hyperlipidemia): (5) CKD (chronic kidney disease), stage III: (6) Dementia: Plan: HPI, ROS, PMH, PE completed by Laura Herrera PA-C Assessment and Plan per Dr Birch. Please see addendum History of Present Illness Chief Complaint: Fall Primary Care Provider: Nagi Boston MD Pt is 75 y/o F with PMH HTN, HLD, CKD III (baseline Cr 1.2), dementia presented to ER with c/o fall. History obtained from family secondary to pt's dementia. Reports was helping pt into bed and she had fall. Has laceration above right eyebrow. Denies LOC. Also report sacral wound for past month. Reports of been putting cream to area. States that area was improving and appeared to be healing however 3 days ago patient accidentally sat on railing on her hospital bed at home and reports that area seemed to open up and had some foul-smelling drainage. Reports for the past week patient has not been eating or drinking well and appears to be more weak. States patient lives at home with granddaughter and her who cares for her. Denies any known vomiting or diarrhea, fever, diaphoresis. States patient is at her baseline mental status. In ER pt afebrile. negative CT Head, and C-spine. Facial laceration was repaired. WBC: 14. CT Abd/pelvis: here is a sacral decubitus ulceration is detailed above with evidence of significant surrounding cellulitis and soft tissue abscess.. There is associated erosive/destructive change involving the lower sacrum and coccyx consistent with osteomyelitis. Pt given cefepime, vancomycin. Being admitted for further evaluation and treatment Allergies Allergy/AdvReac Type Severity Reaction Status Date / Time No Known Allergies Allergy Unverified 07/01/21 17:08 Home Medications Medication Instructions Recorded Confirmed Type donepezil 5 mg tablet 5 mg PO DAILY 07/18/20 07/01/21 History lorazepam 0.5 mg tablet 0.5 mg PO TID PRN 07/18/20 07/01/21 History quetiapine 100 mg tablet 100 mg PO HS 07/18/20 07/01/21 History tramadol 50 mg tablet 50 - 100 mg PO Q6H PRN 07/18/20 07/01/21 History acetaminophen 650 mg 650 mg PO Q4H PRN 07/01/21 07/01/21 History tablet,extended release (Tylenol Arthritis Pain) [id number] ear 4 drp OTIC (EAR) TID 07/01/21 07/01/21 History drops,suspension Past Med/Surg History Medical History (Updated 07/01/21 @ 21:25 by Laura Herrera PA-C) CKD (chronic kidney disease), stage III Dementia HLD (hyperlipidemia) HTN (hypertension) Osteoporosis Surgical History (Updated 07/01/21 @ 21:20 by Laura Herrera PA-C) History of bilateral knee replacement History of cataract surgery History of total hip replacement Hx of cholecystectomy Social History Smoking Status: Unknown if ever smoked Hx Alcohol Use: No Hx Substance Use: No Preferred Language: Macedonian Communication Ability: altered me Engineering Documentation Specialist Required: No Beliefs That Will Affect Care: None Current Living Situation: Family Other Information That Helps Us Care for You: No Feels Safe at Home: Yes Review of Systems Review of Systems: Unobtainable due to cognitive status Physical Exam Physical Exam: General: no distress acute distress, elderly female Head: normocephalic, face: Repaired laceration right eyebrow with Dermabond, Steri-Strips Eyes: PERRL, EOM's appear intact, difficult to fully assess secondary to patient's cooperation, conjunctiva non-injected, anicteric ENT: normal inspection external ears, nose, mucous membranes mildly dry Neck: supple, trachea midline Lungs: Poor inspiratory effort, appear clear, no respiratory distress CV: RRR, no pretibial edema Abd: normal BS, soft, non-tender Ext: no cyanosis, no calf tenderness Neuro: Alert, not oriented Skin: warm, dry; buttocks: + open Deep decubitus ulcer, + foul-smelling Results & Data Results & Data ([facility]) Vital Signs (Past 12 Hours) Vital Signs Temp Pulse Resp BP BP Pulse Ox 07/01/21 20:55 18 135/110 H 98 07/01/21 16:10 36.6 C 107 H 22 168/71 H 98 07/01/21 16:07 110 H 18 168/71 H Laboratory Results Short CBC 07/01/21 Range/Units 18:26 WBC 14.66 H (4.8-10.8) K/uL Hgb 12.0 (12.0-16.0) g/dL Hct 36.7 L (37-47) % Plt Count 533 H (130-400) K/uL BMP 07/01/21 18:26 Sodium 141 Potassium 4.2 Chloride 107 Carbon Dioxide 28 BUN 22 H Creatinine 0.87 Glucose 107 H Calcium 9.2 Liver Function 07/01/21 Range/Units 18:26 Total Bilirubin 0.5 (0.2-1) mg/dl AST 75 H (15-37) U/L ALT 110 H (12-78) U/L Alkaline Phosphatase 190 H (45-117) U/L Albumin 2.2 L (3.4-5.0) gm/dl Diagnostic Findings Cervical Spine CT 07/01/21 16:05 CT SCAN OF THE CERVICAL SPINE CLINICAL HISTORY: Trauma. Fall. COMPARISON STUDY: CT of the cervical spine dated 01/15/2016. TECHNIQUE: CT scan of the cervical spine is performed from the skull base to the upper thoracic spine. Images are reviewed in the axial, sagittal, and coronal planes. IV contrast was not administered for this examination. A dose lowering technique was utilized adhering to the principles of ALARA. CT DOSE: 404.08 mGycm FINDINGS: Skeletal structures: The skeletal structures are osteopenic. There is no evidence of fracture or subluxation involving the cervical spine. Vertebral body height and alignment are maintained. Hyperlordosis is noted. Small anterior osteophytes are seen throughout. The odontoid process and lateral masses are intact. The atlantoaxial articulation is preserved noting productive degenerative change. The spinous processes appear intact. There is moderate multilevel cervical spondylosis. Uncovertebral and facet arthropathy contribute to neural foraminal stenosis at several levels. Intervertebral discs: There is moderate disc space narrowing at C3-C4, C4-C5, and C6-C7. Central canal: Posterior disc osteophyte complexes at C3-C4, C4-C5, and C6-C7 may contribute to mild acquired compromise of the central canal. Soft tissues: The prevertebral and paraspinous soft tissues are within normal limits. There is atherosclerotic calcification of the carotid bulbs. Calvarium: The visualized calvarium at the skull base appears intact. Brain parenchyma: Partially visualized brain parenchyma at the skull base is within normal limits noting age-related involutional change. Mastoids: There is a small right mastoid effusion. The left mastoid air cells are well pneumatized. Lung apices: Clear as visualized. IMPRESSION: 1. There is no evidence of fracture or subluxation involving the cervical spine. 2. Osteopenia and spondylotic change as above. ACT 112: Negative or not required by law. Electronically signed by: Isai Quintanilla M.D. 07/01/2021 5:09 PM Chest X-Ray 07/01/21 16:05 XR chest 1V portable CLINICAL HISTORY: trauma COMPARISON STUDY: July 10, 2020 FINDINGS: No pneumothorax. No pleural effusion. There is large parahilar opacity seen on the right which might represent large hiatal hernia which was also seen on prior study or other etiology. Lung volumes are decreased with crowded lung markings. Cardiomediastinal silhouette is within normal limits in size. Pulmonary vasculature is indistinct.. Aorta is calcified. Osseous structures: Degenerative changes of the spine. IMPRESSION: 1. Questionable right parahilar mass which is seen on the right and might represent previously seen hiatal hernia versus other etiology. 2. No pneumothorax seen. 3. Low lung volumes which limits evaluation. ACT 112: Negative or not required by law. The above report was generated using voice recognition software. It may contain grammatical, syntax or spelling errors. Electronically signed by: Damaris Barnes DO 07/01/2021 4:[address] 07/01/21 16:05 CT head/brain wo con CLINICAL HISTORY: trauma COMPARISON STUDY: January 15, 2016 TECHNIQUE: Axial CT of the brain is performed from the vertex to the skull base. IV contrast was not administered for this examination. A dose lowering technique was utilized adhering to the principles of ALARA. CT DOSE: 1459.56 mGycm FINDINGS: No intra or extra-axial mass lesions are visualized. There is no CT evidence of acute cortical infarction. There is no evidence of midline shift. There is no acute hemorrhage. No acute depressed calvarial fractures are visualized. Evaluation is slightly limited due to motion and beam hardening artifact. There are patchy white matter hypodensities likely on a small vessel basis. There are minimal atrophic changes of brain parenchyma associated with ex vacuo dilatation of ventricles. There is no evidence of acute sinusitis IMPRESSION: No acute intracranial hemorrhage, no midline shift or space occupying lesions. Chronic small vessel ischemia and atrophic changes of brain parenchyma. Slightly limited exam due to motion and beam hardening artifact. ACT 112: Negative or not required by law. The above report was generated using voice recognition software. It may contain grammatical, syntax or spelling errors. Electronically signed by: Damaris Barnes DO 07/01/2021 4:33 PM Pelvis X-Ray 07/01/21 16:05 SINGLE VIEW PELVIS CLINICAL HISTORY: Fall. FINDINGS: 2 AP supine views of the pelvis are compared to study dated 01/15/2016. The skeletal structures are osteopenic. There is no radiographic evidence of fracture involving the hips or bony pelvis. A bipolar left hip arthroplasty is in near-anatomic alignment. No periprosthetic lucency is seen. Moderate arthritic change and joint space narrowing is seen in the right hip. Sclerotic change is noted in the sacroiliac joints and pubic symphysis. The overlying soft tissues are normal as visualized. Small phleboliths are noted in the pelvis. IMPRESSION: No acute bony abnormality is identified. Electronically signed by: Isai Quintanilla M.D. 07/01/2021 4:31 PM Abdomen/Pelvis CT 07/01/21 17:46 CT SCAN OF THE ABDOMEN AND PELVIS WITH IV CONTRAST CLINICAL HISTORY: Sacral decubitus ulcer. Draining wound. COMPARISON STUDY: Abdominal CT dated 06/11/2016. TECHNIQUE: Following the IV administration of 94 cc of Optiray 320, CT scan of the abdomen and pelvis is performed from the lung bases to the proximal femora. Images are reviewed in the axial, sagittal, and coronal planes. IV contrast was administered without complication. A dose lowering technique was utilized adhering to the principles of ALARA. The examination is degraded by motion artifact, as well as by streak artifact from the arms which could not be elevated above the abdomen or pelvis. CT DOSE: 577.46 mGy.cm FINDINGS: Lung bases: The heart is normal in size and without pericardial effusion. The coronary arteries are densely calcified. The lung bases are grossly clear noting bibasilar atelectasis. There is a large hiatal hernia which contains the duodenum and a nonobstructed segment of colon as well as stomach. Liver: The contrast-enhanced liver is normal in size, contour, and attenuation. There is no intrahepatic biliary ductal dilatation. The hepatic veins and portal veins are patent. Gallbladder: Surgically absent noting clips in the gallbladder fossa. Spleen: Normal in size and attenuation. Pancreas: Unremarkable. Adrenal glands: Unremarkable. Kidneys: The contrast enhanced kidneys are atrophic and without hydronephrosis. The kidneys enhance symmetrically. There are numerous bilateral renal sinus cyst. A 5.3 cm cyst arises from the right lower pole. Abdominal vasculature: The abdominal aorta is normal in course and caliber noting advanced atherosclerotic calcification. Bowel: There is rectosigmoid fecal retention and mild/moderate constipation. No bowel obstruction is seen. The appendix is not visualized. Peritoneum: There is no intraperitoneal free air or abdominal ascites. Lymphadenopathy: None. Pelvic viscera: Evaluation of the pelvis is significantly degraded by streak artifact from a left hip arthroplasty. There is an 8.6 cm simple appearing cystic lesion in the central pelvis, likely related to the right ovary. This has increased in size dating back to 2016. The bladder and uterus are normal as imaged. Skeletal structures: The skeletal structures are heterogeneously osteopenic. There is moderate lumbosacral spondylosis. No lytic or blastic lesions are seen. A left hip arthroplasty is in place. Erosive/destructive change is seen in the distal sacrum and coccyx consistent with osteomyelitis. Soft tissues: There is a decubitus ulceration overlying the inferior aspect of the sacrum along the superior aspect of the gluteal crease. There is a multiloculated and peripherally enhancing gas and fluid containing collection is region. This measures approximately 4 x 3 x 2 cm end there is significant stranding inflammation. This extensive dermal surface, and inflammatory change also involves the sacrum and coccyx with associated osteomyelitis. Inflammatory change extends anterior to the eroded sacrum. IMPRESSION: 1. Streak and motion compromised examination 2. There is a sacral decubitus ulceration is detailed above with evidence of significant surrounding cellulitis and soft tissue abscess. 3. There is associated erosive/destructive change involving the lower sacrum and coccyx consistent with osteomyelitis. 4. There is an 8.6 cm simple cystic lesion in the pelvis, likely related to the right ovary. This has increased in size dating back to 2016, and nonemergent pelvic ultrasound and gynecology assessment is recommended. 5. There is a large complex hiatal hernia as above. 6. Additional findings as detailed above. ACT 112: Negative or not required by law. Electronically signed by: Isai Quintanilla M.D. 07/01/2021 8:48 PM Supervising Physician Co-Signing Physician Notes IM ATTENDING : Patient seen and examined. History obtained from patient, family, and records. Limited history from patient secondary to dementia. Preceding documentation by Ms. Little Herrera PA-C reviewed. FINAL ASSESSMENT AND PLAN as follows : Sepsis secondary to infected sacral decubitus wound/abscess/osteomyelitis HTN, not on maintenance meds, slight elevated secondary to agitation Abnormal LFTs Pelvic mass on CT incidental finding Hyperglycemia rule out DM Dementia, rapid decline over the last few weeks as per family Medical telemetry CS. Daptomycin, Zosyn General Surgery consult Re: Infected sacral decubitus wound/abscess N.p.o. until patient seen by General Surgery in anticipation of debridement procedure ID consult at some point given osteomyelitis findings Pelvic ultrasound, outpatient Finished Goods Inspector consult for pelvic mass Analgesia, anxiolytic as needed Initiate lisinopril if with persistent BP elevation Follow LFTs, liver ultrasound if with progression Check hemoglobin A1c PT OT eval once medically stable DVT prophylaxis. Lovenox subcu Full code Patient daughter requesting updates from providers. Ms. Raven Mishra, contact #[phone]. Secondary contact is patient's granddaughter, Ms. Kayleen Carlin, contact #[phone]. Text document was generated using [employer] voice recognition software. It may contain grammatical or spelling errors. Kindly contact undersigned for clarification of any documentation item in question.
[2021-07-01] MEDS ORDERED: LORazepam 0.5 MG TAB PO STA (21:31)
[2021-07-01 21:40] LABS: Magnesium 2.1 mg/dl (1.8-2.4); Thyroid Stimulating Hormone 4.05 uIu/ml (0.300-4.500)
[2021-07-01] MEDS ORDERED: OLANZapine 10 MG/2.1 ML SDV IM STA (22:09)
[2021-07-01] MEDS ORDERED: SODIUM CHLORIDE 0.45 % 1,000 ML IV ONE (22:10)
[2021-07-02] MEDS ORDERED: ACETAMINOPHEN 325 MG TAB PO PRN (01:06)
[2021-07-02] MEDS ORDERED: MoRPHine SULFATE 2 MG/ML CARP IV PRN (02:10)
[2021-07-02] MEDS ORDERED: traMADol HCL 50 MG TABLET PO PRN (02:10)
[2021-07-02] MEDS ORDERED: NON-FORMULARY MEDICATION (Acetaminophen [Tylenol Arthritis Pain] 650 mg Tablet Extended Re PO PRN (02:10)
[2021-07-02] MEDS ORDERED: PIPERACILL/TAZOBAC CONSULT ACTIVE PRN (03:52)
[2021-07-02] MEDS: PIPERACILLIN/TAZOBACTAM 3.375 GM in DEXTROSE 5% 100 ML IV SCH ×3 (05:04→21:23)
--- NOTE | 2021-07-02 07:56 | XRay Report ---
XR chest 1V portable HISTORY: sepsis COMPARISON: Chest 07/01/2021. FINDINGS: No pneumothorax. No pleural effusions. The cardiac silhouette remains mildly enlarged. Ther e are low lung volumes. Large hiatus hernia, unchanged. No new focal lung consolidations to suggest p neumonia. No evidence for pulmonary edema. IMPRESSION: No significant change compared to the prior study. No acute process. Stable large hiatus hernia. ACT 112: Negative or not required by law. Electronically signed by: Yony Royal M.D. 07/02/2021 7:55 AM
[2021-07-02 07:58] LABS: Basophils # (auto) 0.01 K/uL (0-0.2); Basophils % (auto) 0.1 %; Eosinophils # (auto) 0.13 K/uL (0-0.5); Eosinophils % (auto) 1.3 %; Hematocrit (blood only) 33.3 % (37-47); Hemoglobin 10.9 g/dL (12.0-16.0); Immature Granulocytes # (auto) 0.11 K/uL (0.00-0.02); Immature Granulocytes % (auto) 1.1 %; Lymphocytes % (auto) 12.7 %; Mean Corpuscular Hemoglobin 29.4 pg (25-34); Mean Corpuscular Hgb Conc 32.7 g/dL (32-36); Mean Corpuscular Volume 89.8 fL (80-100); Mean Platelet Volume 10.5 fL (7.4-10.4); Monocytes # (auto) 0.85 K/uL (0.11-0.59); Monocytes % (auto) 8.3 %; Neutrophils # (auto) 7.87 K/uL (1.4-6.5); Neutrophils % (auto) 76.5 %; Platelet Count 435 K/uL (130-400); RDW Coefficient of Variation 13.2 % (11.5-14.5); RDW Standard Deviation 43.6 fL (36.4-46.3); Red Blood Count 3.71 M/uL (4.2-5.4); White Blood Count 10.27 K/uL (4.8-10.8)
[2021-07-02 08:28] LABS: Albumin Level 1.9 gm/dl (3.4-5.0); BUN Creatinine Ratio 26.9 (10-20); Bilirubin Direct 0.2 mg/dl (0-0.2); Calcium 8.5 mg/dl (8.5-10.1); Creatinine Clr Calc Pharmacy 56.8 ml/min; Est GFR (African American) 89.1 ml/min; Est GFR (Non-African American) 76.9 ml/min
[2021-07-02 08:31] LABS: Bilirubin,Total 0.6 mg/dl (0.2-1); Total Protein 6.2 gm/dl (6.4-8.2)
--- NOTE | 2021-07-02 08:32 | Electrocardiogram Report ---
Test Reason : Blood Pressure : / mmHG Vent. Rate : 110 BPM Atrial Rate : 110 BPM P-R Int : 138 ms QRS Dur : 072 ms QT Int : 324 ms P-R-T Axes : 053 035 054 degrees QTc Int : 438 ms Poor data quality, interpretation may be adversely affected Sinus tachycardia Low voltage QRS Borderline ECG When compared with ECG of 18-JUL-2020 17:39, Vent. rate has increased BY 45 BPM Confirmed by David Owen ([id number]) on 07/02/2021 8:32:03 AM Referred By: REFERRED SELF Confirmed By:Yves Owen
[2021-07-02] MEDS: DONEPEZIL HCL 5 MG TAB PO SCH (09:03)
[2021-07-02] MEDS: ENOXAPARIN INJ 40 MG/0.4 ML SYR SQ SCH (09:05)
[2021-07-02] MEDS: DAPTOmycin 300 MG in SYRINGE 0 ML IV SCH (09:05)
[2021-07-02] MEDS ORDERED: SODIUM CHLORIDE 0.45 % 1,000 ML IV SCH (11:00)
--- NOTE | 2021-07-02 11:21 | Ultrasound Report ---
EXAMINATION: PELVIC ULTRASOUND CLINICAL HISTORY: pelvic mass COMPARISON STUDY: None. Correlation is made with CT of the abdomen and pelvis performed on June FINDINGS: The uterus measured 4.6 x 2.1 x 2.8 cm. The endometrial stripe measured 0.3 cm. The right ovary measured 8.3 x 5.6 x 6 7.3 cm. There is 7.5 x 5.3 x 6.7 cm cystic lesion is adjacent to the right ovary which shows no evidence of septation, soft tissue component or internal blood flow . The left ovary is not visualized. . There is no ultrasonographic evidence of ovarian torsion. It should be noted that ovarian torsion can be present with normal Doppler ultrasonographic findings. There was no evidence of pathologic free pelvic fluid. IMPRESSION: Large cystic lesion adjacent to the right ovary without septation, internal blood flow or soft tissue component most likely representing simple cysts. Due to large size of this lesion in postmenopausal female, further evaluation with MRI or surgical consult is suggested. ACT 112: Negative or not required by law. The above report was generated using voice recognition software. It may contain grammatical, syntax o r spelling errors. Electronically signed by: Damaris Barnes DO 07/02/2021 11:20 AM
--- NOTE | 2021-07-02 11:53 | Surgery Consultation ---
Date of Consultation July 02, 2021 Assessment & Plan (1) Decubital ulcer: Has been NPO. Will plan for debridement in OR today by Dr. Daniels. Supervising Physician Co-Signing Physician Notes I personally saw and evaluated the patient with Derek Shea PA-C and agree with the assessment and plan. 75 yo female with dementia and stage IV sacral decubitus ulcer -Keep NPO -IV ABX -Plan on operative debridement of sacral ulcer today -Consent obtained from her daughter via telephone, risks discussed including bleeding, infection, need for further debridements -Consult wound care tomorrow History of Present Illness Attending Physician: Peterson Glasgow MD History of Present Illness 75 y/o female with dementia brought to ER by EMS after fall at home. Facial laceration was repaired. Also found to have sacral decub with foul smelling drainage for the past several days. Allergies Allergy/AdvReac Type Severity Reaction Status Date / Time No Known Allergies Allergy Unverified 07/01/21 17:08 Home Medications Medication Instructions Recorded Confirmed Type donepezil 5 mg tablet 5 mg PO DAILY 07/18/20 07/01/21 History lorazepam 0.5 mg tablet 0.5 mg PO TID PRN 07/18/20 07/01/21 History quetiapine 100 mg tablet 100 mg PO HS 07/18/20 07/01/21 History tramadol 50 mg tablet 50 - 100 mg PO Q6H PRN 07/18/20 07/01/21 History acetaminophen 650 mg 650 mg PO Q4H PRN 07/01/21 07/01/21 History tablet,extended release (Tylenol Arthritis Pain) [id number] ear 4 drp OTIC (EAR) TID 07/01/21 07/01/21 History drops,suspension Patient History Medical History CKD (chronic kidney disease), stage III Dementia HLD (hyperlipidemia) HTN (hypertension) Osteoporosis Surgical History History of bilateral knee replacement History of cataract surgery History of total hip replacement Hx of cholecystectomy Social History Smoking Status: Unknown if ever smoked Hx Alcohol Use: No Hx Substance Use: No Preferred Language: Upper Sorbian Communication Ability: altered me Relief Operator Required: No Beliefs That Will Affect Care: None Current Living Situation: Family Other Information That Helps Us Care for You: No Feels Safe at Home: Yes Review of Systems Review of Systems: Unobtainable due to cognitive status Physical Exam Constitutional: + frail appearing Respiratory: normal respiratory effort Cardiovascular: Rate/Rhythm: regular rate Skin: sacral decub with skin bridging between multiple open areas with undermining and purulent drainage Results & Data ([facility]) Vital Signs (Past 12 Hours) Vital Signs Temp Pulse Pulse Resp BP Pulse Ox 07/02/21 11:40 36.4 C L 78 16 119/73 96 07/02/21 09:58 83 07/02/21 07:54 36.8 C 84 20 130/63 93 07/02/21 03:59 36.3 C L 84 16 129/62 93 PG Care Time/CCT Total # of Minutes Spent Total Time Spent with Patient: Total time spent is greater than 50% in coordination of care (as documented) at patient's floor/unit and/or counseling patient: Coding Level of Care Code 02933 Initial Inpt Care Lvl 2 Diagnoses Decubital ulcer L89.90
--- NOTE | 2021-07-02 13:03 | Anesthesiology Consultation ---
Date of Service July 02, 2021 Assessment & Plan Chart Review Chart Review: Acceptable Risk for Surgery and Patient NOT seen in Pre Admission Testing Consults Requested none ASA ASA4 Proposed Anesthesia Anesthesia Type: General Additional Comments: covid test negative History Surgery Operation Date: 07/02/21 10:35 Proposed Procedures p Debridement Sacral Ulcer - Devon Daniels DO Height/Weight Height: 5 ft 1 in Weight: 71.6 kg Allergies Allergy/AdvReac Type Severity Reaction Status Date / Time No Known Allergies Allergy Unverified 07/01/21 17:08 Medications Home Medications Medication Instructions Recorded Confirmed Last Taken donepezil 5 mg tablet 5 mg PO DAILY 07/18/20 07/01/21 07/17/20 lorazepam 0.5 mg tablet 0.5 mg PO TID PRN 07/18/20 07/01/21 07/18/20 quetiapine 100 mg tablet 100 mg PO HS 07/18/20 07/01/21 07/17/20 tramadol 50 mg tablet 50 - 100 mg PO Q6H PRN 07/18/20 07/01/21 07/18/20 acetaminophen 650 mg 650 mg PO Q4H PRN 07/01/21 07/01/21 Unknown tablet,extended release (Tylenol Arthritis Pain) [id number]-ubwffwzaa ear 4 drp OTIC (EAR) TID 07/01/21 07/01/21 Unknown drops,suspension Active Medications Generic Name Dose Route Start Last Admin Trade Name Freq PRN Reason Stop Dose Admin Donepezil HCl 5 mg 07/02/21 09:00 07/02/21 09:03 Donepezil Hcl 5 Mg Tab PO 08/01/21 08:59 Not Given DAILY EMPERATRIZ Enoxaparin Sodium 40 mg 07/02/21 09:00 07/02/21 09:05 Enoxaparin Inj 40 Mg/0.4 Ml Syr SQ 08/01/21 08:59 40 mg QAM EMPERATRIZ Administration Sodium Chloride 1,000 mls @ 60 mls/hr 07/02/21 11:00 07/02/21 11:33 1/2 Nss IV 08/01/21 10:59 60 mls/hr .[id number] EMPERATRIZ Administration Piperacillin Sod/Tazobactam 115 mls @ 28.75 mls/hr 07/02/21 06:00 07/02/21 09:08 Sod 3.375 gm/ Dextrose IV 08/13/21 05:59 Infused Q8H EMPERATRIZ Infusion Protocol Daptomycin 300 mg/ Syringe 6 mls @ 3 mls/min 07/02/21 10:00 07/02/21 09:05 IV 08/13/21 09:59 3 mls/min Q24H EMPERATRIZ Administration Protocol Past Medical History Medical History CKD (chronic kidney disease), stage III Dementia HLD (hyperlipidemia) HTN (hypertension) Osteoporosis Exercise / Class Metabolic Activity III < 4 Walking/Shop/Light housework Past Surgical History Surgical History History of bilateral knee replacement History of cataract surgery History of total hip replacement Hx of cholecystectomy Past Anesthesia History No Hx of Anesthesia Complications and No Family Hx of Anesthesia Complications History of PONV No Hx of PONV and No Hx of Motion Sickness Social History Smoking Status: Unknown if ever smoked Hx Alcohol Use: No Hx Substance Use: No Physical Exam Vital Signs Last Vital Signs Temp 36.4 C L 07/02/21 11:40 Pulse 78 07/02/21 11:40 Resp 16 07/02/21 11:40 BP 119/73 07/02/21 11:40 Pulse Ox 96 07/02/21 11:40 Testing Laboratory Results 07/02/21 07:22 07/02/21 07:22 07/01/21 18:26 Gram Stain - Final Buttock Decubitus Deep Wound Culture - Preliminary Pin-point growth present, reincubating. Electrocardiogram Date: 07/01/21 Findings: + ST @ (at 110;low voltage QRS) Chest X-Ray Date: 07/01/21 Findings: + NAD and + other (large hiatal hernia)
[2021-07-02] MEDS ORDERED: PROPOFOL IV EMULSION 10 MG/ML 20 ML VIAL IV ONE (13:13)
[2021-07-02] MEDS ORDERED: ONDANSETRON INJ 2 MG/ML 2 ML VIAL ONE (13:13)
[2021-07-02] MEDS ORDERED: LIDOCAINE 2% 2 ML VIAL/AMP(20MG/ML) INFIL ONE (13:13)
[2021-07-02] MEDS ORDERED: fentaNYL citrate 100 MCG/2 ML VIAL ONE (13:17)
[2021-07-02] MEDS ORDERED: PROMETHAZINE HCL 12.5 MG in SODIUM CHLORIDE 0.9% 50 ML IV PRN (13:21)
[2021-07-02] MEDS ORDERED: LABETALOL HCL IV 5 MG/ML 20ML IV PRN (13:21)
[2021-07-02] MEDS ORDERED: ATROPINE SULFATE 0.1 MG/ML 10ML SYR IV PRN (13:21)
[2021-07-02] MEDS ORDERED: ePHEDrine sulfate 50 MG/ML AMP IV PRN (13:21)
[2021-07-02] MEDS ORDERED: ONDANSETRON INJ 2 MG/ML 2 ML VIAL IV PRN (13:21)
[2021-07-02] MEDS ORDERED: FLUMAZENIL 0.1 MG/1 ML 10 ML VIAL IV PRN (13:21)
[2021-07-02] MEDS ORDERED: fentaNYL citrate 100 MCG/2 ML VIAL IV PRN (13:21)
[2021-07-02] MEDS ORDERED: NALOXONE HCL 0.4 MG/1 ML VIAL/CARP IV PRN (13:21)
[2021-07-02] MEDS ORDERED: EPINEPHrine INJ 1 MG/ML AMP ONE (14:57)
[2021-07-02] MEDS ORDERED: BUPIVACAINE 0.25% 30 ML VIAL ONE (14:57)
[2021-07-02] MEDS ORDERED: CISATRACURIUM BESYLATE IV SOLN 2 MG/ML 10 ML VIAL IV ONE (15:27)
[2021-07-02] MEDS ORDERED: SUCCINYLCHOLINE CHLORIDE 20 MG/ML 10 ML VIAL IV ONE (15:27)
--- NOTE | 2021-07-02 15:55 | Post Operative Brief Note ---
PG Immediate Post Op with CF Date of Surgery July 02, 2021 Pre & Post Diagnosis Operation Date: 07/02/21 10:35 Pre-Op Diagnosis: Decubitis ulcer Post-Op Diagnosis: Decubitis ulcer, stage IV, sacral osteomyelitis I identified the patient and participated in the time-out.: Yes Procedure Operation Date: 07/02/21 10:35 Actual Procedures p Excisional Debridement Sacral Ulcer down to bone 8cm x 4cm - Devon Daniels DO Surgeon Devon Daniels DO Tacker Off Richi Shea PA-C Estimated Blood Loss 50 Findings See Below 8cm x 4cm sacral decubitus ulcer with osteomyelitis of the sacrum Specimens Specimen Description: Sacrum to pathology Sacrum for culture Anesthesia Type General Complications none Disposition Disposition: Recovery Room
--- NOTE | 2021-07-02 16:03 | Operative Report ---
PG Post Operative Report Pre & Post Diagnosis Operation Date: 07/02/21 10:35 Pre-Op Diagnosis: Decubitis ulcer Post-Op Diagnosis: Decubitis ulcer stage IV, sacral osteomyelitis I identified the patient and participated in the time-out.: Yes Procedure Operation Date: 07/02/21 10:35 Actual Procedures p Excisonal Debridement Sacral Ulcer down to bone 8cm x 4cm - Devon Daniels DO Surgeon Devon Daniels DO Resin Maker Richi Shea PA-C Estimated Blood Loss 50 Findings See Below 8cm x 4cm sacral ulcer with sacral osteomyelitis Specimens Sacrum to pathology Sacrum for culture Drains None Anesthesia Type General Complications none Disposition Disposition: Recovery Room Indications 75 yo female with stage IV sacral decubitus ulcer requiring debridement Description of Procedure The patient was brought to the operating room and underwent general endotracheal anesthesia without issue. At this time the patient was placed in the prone jackknife position. The lower back were prepped and draped in the usual sterile fashion. Appropriate pre-operative antibiotics were administered. A timeout was called. The procedure was verified as Excisional debridement of sacral decubitus ulcer. Surgical, anesthesia and nursing teams agreed and the procedure was begun. The sacral wound was explored and had severe undermining in all directions. The skin and subcutaneous tissue that made up the wound was excised using a #15 blade scalpel so that the undermining was no longer present and healthy bleeding tissue was encountered. At the base of the wound, there was necrotic tissue present and sacrum exposed. Using a rongeur, the portion of the exposed sacrum was debrided and sent to pathology as well as for culture. The entire wound was then debrided using electrocautery so that all the devitalized tissue was excised. The wound was irrigated until clear. At this time hemostasis was achieved using electrocautery. Hemostasis was complete. The wound measured 8cm x 4cm and this is an excisional debridement of 32cm2 down to bone.At this time the incision was packed with wet to dry Kerlix packing and a sterile dressing was applied. At this time the patient was awakened from anesthesia and extubated having remained stable throughout the entire case and transported to PACU in stable condition. The physician benefits assistant was present and scrubbed for the entire case. She was essential in positioning, prepping and draping the patient, retraction and exposure, placement of the dressing. I attest to the content of the Intraoperative Record and any orders documented therein. Any exceptions are noted below.
[2021-07-02] MEDS ORDERED: GLYCOPYRROLATE 0.2 MG/ML VIAL ONE (16:07)
[2021-07-02] MEDS ORDERED: NEOSTIGMINE METHYLSULFATE 1 MG/ML 10ML VIAL ONE (16:07)
--- NOTE | 2021-07-02 16:39 | Anesthesiology Progress Note ---
Date of Service July 02, 2021 Anesthesia Post Procedure Vital Signs Vital Signs: Temp Pulse Pulse Pulse Resp BP BP 07/02/21 16:30 37.7 C H 109 H 18 138/90 07/02/21 16:20 106 H 16 139/87 07/02/21 16:10 101 H 19 127/95 07/02/21 16:03 36.8 C 90 16 152/85 H 07/02/21 12:30 36.5 C 96 H 18 131/67 07/02/21 11:40 36.4 C L 78 16 119/73 07/02/21 09:58 83 07/02/21 07:54 36.8 C 84 20 130/63 07/02/21 03:59 36.3 C L 84 16 129/62 07/01/21 23:02 142/110 H 07/01/21 20:55 18 135/110 H 07/01/21 20:21 156/134 H 07/01/21 20:02 116/78 Pulse Ox 07/02/21 16:30 96 07/02/21 16:20 99 07/02/21 16:10 99 07/02/21 16:03 99 07/02/21 12:30 96 07/02/21 11:40 96 07/02/21 09:58 07/02/21 07:54 93 07/02/21 03:59 93 07/01/21 23:02 07/01/21 20:55 98 07/01/21 20:21 07/01/21 20:02 Transfer of Care Handoff Completed per policy Notes Mental Status: alert / awake / arousable Patient Amnestic to Procedure: Yes Nausea / Vomiting: adequately controlled Pain: adequately controlled Airway Patency, RR, SpO2: stable & adequate BP & HR: stable & adequate Hydration State: stable & adequate Anesthetic Complications: no major complications apparent
--- NOTE | 2021-07-02 18:11 | Hospitalist Progress Note ---
Date of Service July 02, 2021 Assessment & Plan (1) Decubital ulcer: Plan: Sepsis secondary to infected stage IV sacral decubitus wound/abscess/osteomyelitis Has been on intravenous Zosyn and daptomycin Appreciate surgery input and recommendation Status post excisional debridement of sacral ulcer down to bone 8 cm x 4 cm We will continue wound care as per surgery and wound care nurse Will ask for ID consult for further evaluation of use of antibiotic and duration Abnormal LFTs Could be secondary to sepsis We will monitor Pelvic mass on CT scan Incidental finding Pelvic ultrasound-large cystic lesion adjacent to the right ovary without septation, likely representing a simple cyst. Hyperglycemia We will check hemoglobin A1c (2) Fall: Plan: We will get PT and OT evaluation (3) HTN (hypertension): Plan: HTN, not on maintenance meds, slight elevated secondary to agitation (4) HLD (hyperlipidemia): (5) CKD (chronic kidney disease), stage III: Plan: Creatinine seems to be within normal limit (6) Dementia: Plan: Dementia, rapid decline over the last few weeks as per family Plan: DVT prophylaxis Subcu Lovenox CODE STATUS Full Admission and Anticipated Discharge Date Admission Date: July 01, 2021 Subjective 07/02/2021 The patient was seen and examined in medical telemetry unit She has been pleasantly confused but does not have any acute distress She is status post debridement of sacral decubiti wound Review of Systems Review of Systems: Unobtainable due to cognitive status Physical Exam Physical Exam: Lying in bed comfortably Constitutional: + ill appearing and + thin Respiratory: no respiratory distress and no cough Auscultation: lungs clear to auscultation bilaterally and + diminished lung sounds Cardiovascular: Rate/Rhythm: regular rate, regular rhythm and + tachycardic Heart Sounds: normal S1 and normal S2; no murmur Extremities: + edema (1+ edema bilaterally) Gastrointestinal (Abdomen): normal bowel sounds, soft, nontender, no hepatosplenomegaly Musculoskeletal: No acute arthritis in any joint Neurologic: Alert and awake. Pleasantly confused. A bit restless following surgery and to take of the IV lines. Results & Data Results & Data ([facility]) Vital Signs (Past 12 Hours) Vital Signs Temp Pulse Pulse Pulse Resp BP Pulse Ox 07/02/21 17:20 36.8 C 110 H 14 140/63 96 07/02/21 16:50 36.8 C 113 H 16 133/76 96 08/12/21 16:30 37.7 C H 109 H 18 138/90 96 07/02/21 16:20 106 H 16 139/87 99 07/02/21 16:10 101 H 19 127/95 99 07/02/21 16:03 36.8 C 90 16 152/85 H 99 07/02/21 12:30 36.5 C 96 H 18 131/67 96 07/02/21 11:40 36.4 C L 78 16 119/73 96 07/02/21 09:58 83 07/02/21 07:54 36.8 C 84 20 130/63 93 Laboratory Results Short CBC 07/01/21 07/02/21 Range/Units 18:26 07:22 WBC 14.66 H 10.27 (4.8-10.8) K/uL Hgb 12.0 10.9 L (12.0-16.0) g/dL Hct 36.7 L 33.3 L (37-47) % Plt Count 533 H 435 H (130-400) K/uL BMP 07/01/21 07/02/21 18:26 07:22 Sodium 141 141 Potassium 4.2 4.0 Chloride 107 109 H Carbon Dioxide 28 25 BUN 22 H 20 H Creatinine 0.87 0.75 Glucose 107 H 105 H Calcium 9.2 8.5 Cardiac Enzymes 07/01/21 Range/Units 18:26 Total Creatine Kinase 185 (26-192) U/L Liver Function 07/01/21 07/02/21 Range/Units 18:26 07:22 Total Bilirubin 0.5 0.6 (0.2-1) mg/dl Direct Bilirubin 0.2 (0-0.2) mg/dl AST 75 H 50 H (15-37) U/L ALT 110 H 80 H (12-78) U/L Alkaline Phosphatase 190 H 153 H (45-117) U/L Albumin 2.2 L 1.9 L (3.4-5.0) gm/dl Medications Administered Current Inpatient Medications Acetaminophen (Acetaminophen 325 Mg Tab) 325 mg PO Q6H PRN PRN Reason: Mild Pain Stop: 08/01/21 01:05 Donepezil HCl (Donepezil Hcl 5 Mg Tab) 5 mg PO DAILY EMPERATRIZ Stop: 08/01/21 08:59 Last Admin: 07/02/21 09:03 Dose: Not Given Documented by: Enoxaparin Sodium (Enoxaparin Inj 40 Mg/0.4 Ml Syr) 40 mg SQ QAM EMPERATRIZ Stop: 08/01/21 08:59 Last Admin: 07/02/21 09:05 Dose: 40 mg Documented by: Sodium Chloride (1/2 Nss) 1,000 mls @ 60 mls/hr IV .[id number] EMPERATRIZ Stop: 08/01/21 10:59 Last Infusion: 07/02/21 14:19 Dose: 0 mls/hr Documented by: Piperacillin Sod/Tazobactam (Sod 3.375 gm/ Dextrose) 115 mls @ 28.75 mls/hr IV Q8H EMPERATRIZ; Protocol Stop: 08/13/21 05:59 Last Infusion: 07/02/21 17:28 Dose: Infused Documented by: Daptomycin 300 mg/ Syringe 6 mls @ 3 mls/min IV Q24H EMPERATRIZ; Protocol Stop: 08/13/21 09:59 Last Admin: 07/02/21 09:05 Dose: 3 mls/min Documented by: Miscellaneous Information (Daptomycin Consult Active) 1 ea N/A UD PRN PRN Reason: Consult Stop: 08/01/21 03:51 Miscellaneous Information (Piperacill/Tazobac Consult Active) 1 ea N/A UD PRN PRN Reason: Consult Stop: 08/01/21 03:51 Morphine Sulfate (Morphine Sulfate 2 Mg/Ml Carp) 2 mg IV Q4H PRN PRN Reason: Pain Stop: 07/16/21 02:09 Olanzapine (Olanzapine 10 Mg/2.1 Ml Sdv) 2.5 mg IM Q4H PRN PRN Reason: Anxiety/Agitation Stop: 08/01/21 00:05 Quetiapine Fumarate (Quetiapine Fumarate 100 Mg Tablet) 100 mg PO HS EMPERATRIZ Stop: 08/01/21 20:59 Tramadol HCl (Tramadol Hcl 50 Mg Tablet) 50 - 100 mg PO Q6H PRN PRN Reason: Severe Pain (Scale Score 7-10) Stop: 08/01/21 02:09
[2021-07-02] MEDS: QUEtiapine FUMARATE 100 MG TABLET PO SCH (20:54)
[2021-07-02] MEDS ORDERED: SODIUM CHLORIDE 0.45 % 1,000 ML IV ONE (21:20)
[2021-07-03] MEDS: PIPERACILLIN/TAZOBACTAM 3.375 GM in DEXTROSE 5% 100 ML IV SCH ×3 (05:02→21:10)
[2021-07-03 08:41] LABS: Basophils # (auto) 0.01 K/uL (0-0.2); Basophils % (auto) 0.1 %; Eosinophils # (auto) 0.22 K/uL (0-0.5); Eosinophils % (auto) 2.3 %; Hematocrit (blood only) 28.9 % (37-47); Hemoglobin 9.4 g/dL (12.0-16.0); Immature Granulocytes # (auto) 0.13 K/uL (0.00-0.02); Immature Granulocytes % (auto) 1.4 %; Lymphocytes # (auto) 1.35 K/uL (1.2-3.4); Lymphocytes % (auto) 14.1 %; Mean Corpuscular Hgb Conc 32.5 g/dL (32-36); Mean Corpuscular Volume 89.2 fL (80-100); Mean Platelet Volume 9.8 fL (7.4-10.4); Monocytes # (auto) 0.66 K/uL (0.11-0.59); Monocytes % (auto) 6.9 %; Neutrophils # (auto) 7.21 K/uL (1.4-6.5); Neutrophils % (auto) 75.2 %; Platelet Count 356 K/uL (130-400); RDW Coefficient of Variation 13.1 % (11.5-14.5); Red Blood Count 3.24 M/uL (4.2-5.4); White Blood Count 9.58 K/uL (4.8-10.8)
--- NOTE | 2021-07-03 08:53 | Surgery Progress Note ---
Date of Service July 03, 2021 Assessment & Plan (1) Sacral osteomyelitis: Plan: -Doing well -Await sacral cultures to narrow antibiotics -Consider ID consult as she will likely need long-term IV ABX -Wound care to see her today for dressing change, would continue with wet to dry or silver alginate over the weekend -She may require further operative debridement at a later time, but will see how wound responds to local wound care at this point -I spoke with her daughter about all the above treatment plan -Please call with any questions or concerns, should follow up at wound clinic upon discharge Admission and Anticipated Discharge Date Admission Date: July 01, 2021 Subjective Pt seen and examined. Resting comfortably in bed. No acute events overnight. Afebrile. Review of Systems Constitutional: no fever and no chills Physical Exam Constitutional: WD/WN, vitals as above Skin: -Wound dressing in place, c/d/i Results & Data ([facility]) Vital Signs (Past 12 Hours) Vital Signs Temp Pulse Pulse Pulse Resp BP Pulse Ox 07/03/21 08:25 36.7 C 99 H 18 127/64 95 07/03/21 07:31 87 07/03/21 02:49 36.7 C 79 18 103/58 L 96 07/03/21 01:00 110 H 07/02/21 22:54 36.6 C 102 H 18 101/72 96 PG Care Time/CCT Total # of Minutes Spent Total Time Spent with Patient: Total time spent is greater than 50% in co ordination of care (as documented) at patient's floor/unit and/or counseling patient: Coding Level of Care Code None Diagnoses Sacral osteomyelitis M46.28
[2021-07-03] MEDS: ENOXAPARIN INJ 40 MG/0.4 ML SYR SQ SCH (08:58)
[2021-07-03] MEDS: DONEPEZIL HCL 5 MG TAB PO SCH (08:58)
[2021-07-03] MEDS: DAPTOmycin 300 MG in SYRINGE 0 ML IV SCH (09:00)
[2021-07-03 09:08] LABS: Calcium 8.5 mg/dl (8.5-10.1); Creatinine Clr Calc Pharmacy 47.8 ml/min; Est GFR (African American) 74.5 ml/min; Est GFR (Non-African American) 64.3 ml/min; Potassium 3.9 mmol/L (3.5-5.1)
[2021-07-03 09:50] LABS: Estimated Average Glucose 143 mg/dl; Hemoglobin A1C 6.6 % (4.5-5.6)
[2021-07-03] MEDS: ASCORBIC ACID 500 MG TAB PO SCH (14:36)
[2021-07-03] MEDS: MULTIVITAMIN TAB PO SCH (14:37)
--- NOTE | 2021-07-03 18:02 | Hospitalist Progress Note ---
Date of Service July 03, 2021 Assessment & Plan (1) Decubital ulcer: Plan: Sepsis secondary to infected stage IV sacral decubitus wound/abscess/osteomyelitis Has been on intravenous Zosyn and daptomycin Appreciate surgery input and recommendation Status post excisional debridement of sacral ulcer down to bone 8 cm x 4 cm We will continue wound care as per surgery and wound care nurse Will ask for ID consult for further evaluation of use of antibiotic and duration Remains stable following wound debridement Abnormal LFTs Could be secondary to sepsis We will monitor Pelvic mass on CT scan Incidental finding Pelvic ultrasound-large cystic lesion adjacent to the right ovary without septation, likely representing a simple cyst. Hyperglycemia We will check hemoglobin A1c-6.6 (2) Fall: Plan: We will get PT and OT evaluation (3) HTN (hypertension): Plan: HTN, not on maintenance meds, slight elevated secondary to agitation (4) HLD (hyperlipidemia): (5) CKD (chronic kidney disease), stage III: Plan: Creatinine seems to be within normal limit (6) Dementia: Plan: Dementia, rapid decline over the last few weeks as per family Plan: DVT prophylaxis Subcu Lovenox CODE STATUS Full Discussed in detail with the daughter. Likely to need placement but the family members may want her back home if she remains at her baseline. Admission and Anticipated Discharge Date Admission Date: July 01, 2021 Subjective 07/02/2021 The patient was seen and examined in medical telemetry unit She has been pleasantly confused but does not have any acute distress She is status post debridement of sacral decubiti wound 07/03/2021 The patient was seen and examined in medical telemetry unit She has significant dementia and cannot define her problem She has been stable Review of Systems Review of Systems: Unobtainable due to cognitive status Physical Exam Physical Exam: Lying in bed comfortably Constitutional: + ill appearing and + thin Eyes: PERRL, conjunctivae normal, anicteric sclerae ENMT: external ear and nose normal, oropharynx normal Neck: trachea midline, no thyromegaly Respiratory: no respiratory distress and no cough Auscultation: lungs clear to auscultation bilaterally and + diminished lung sounds Cardiovascular: Rate/Rhythm: regular rate, regular rhythm and + tachycardic Heart Sounds: normal S1 and normal S2; no murmur Extremities: + edema (1+ edema bilaterally) Gastrointestinal (Abdomen): normal bowel sounds, soft, nontender, no hepatosplenomegaly Skin: Has stage IV sacral decubiti . Please see the wound picture for further information. Neurologic: Alert and awake. Very confused due to dementia. Generally weak but moving all limbs Lymphatic: no cervical or axillary lymphadenopathy Results & Data Results & Data ([facility]) Vital Signs (Past 12 Hours) Vital Signs Temp Pulse Pulse Resp BP Pulse Ox 07/03/21 15:43 74 07/03/21 15:32 36.9 C 87 18 144/96 H 98 07/03/21 10:47 36.4 C L 88 18 100/56 L 90 07/03/21 08:25 36.7 C 99 H 18 127/64 95 07/03/21 07:31 87 Laboratory Results Short CBC 07/03/21 Range/Units 08:31 WBC 9.58 (4.8-10.8) K/uL Hgb 9.4 L (12.0-16.0) g/dL Hct 28.9 L (37-47) % Plt Count 356 (130-400) K/uL BMP 07/03/21 08:31 Sodium 141 Potassium 3.9 Chloride 111 H Carbon Dioxide 24 BUN 15 Creatinine 0.87 Glucose 97 Calcium 8.5 Medications Administered Current Inpatient Medications Acetaminophen (Acetaminophen 325 Mg Tab) 325 mg PO Q6H PRN PRN Reason: Mild Pain Stop: 08/01/21 01:05 Ascorbic Acid (Ascorbic Acid 500 Mg Tab) 500 mg PO QAM [facility] Stop: 08/02/21 13:29 Last Admin: 07/03/21 14:36 Dose: Not Given Documented by: Donepezil HCl (Donepezil Hcl 5 Mg Tab) 5 mg PO DAILY [facility] Stop: 08/01/21 08:59 Last Admin: 07/03/21 08:58 Dose: Not Given Documented by: Enoxaparin Sodium (Enoxaparin Inj 40 Mg/0.4 Ml Syr) 40 mg SQ QAM [facility] Stop: 08/01/21 08:59 Last Admin: 07/03/21 08:58 Dose: 40 mg Documented by: Piperacillin Sod/Tazobactam (Sod 3.375 gm/ Dextrose) 115 mls @ 28.75 mls/hr IV Q8H [facility]; Protocol Stop: 08/13/21 05:59 Last Admin: 07/03/21 14:48 Dose: 28.8 mls/hr Documented by: Daptomycin 300 mg/ Syringe 6 mls @ 3 mls/min IV Q24H EMPERATRIZ; Protocol Stop: 08/13/21 09:59 Last Admin: 07/03/21 09:00 Dose: 3 mls/min Documented by: Miscellaneous Information (Daptomycin Consult Active) 1 ea N/A UD PRN PRN Reason: Consult Stop: 08/01/21 03:51 Miscellaneous Information (Piperacill/Tazobac Consult Active) 1 ea N/A UD PRN PRN Reason: Consult Stop: 08/01/21 03:51 Morphine Sulfate (Morphine Sulfate 2 Mg/Ml Carp) 2 mg IV Q4H PRN PRN Reason: Pain Stop: 07/16/21 02:09 Multivitamins (Multivitamin Tab) 1 tab PO QAM [facility] Stop: 08/02/21 13:29 Last Admin: 07/03/21 14:37 Dose: Not Given Documented by: Olanzapine (Olanzapine 10 Mg/2.1 Ml Sdv) 2.5 mg IM Q4H PRN PRN Reason: Anxiety/Agitation Stop: 08/01/21 00:05 Quetiapine Fumarate (Quetiapine Fumarate 100 Mg Tablet) 100 mg PO HS [facility] Stop: 08/01/21 20:59 Last Admin: 07/02/21 20:54 Dose: 100 mg Documented by: Tramadol HCl (Tramadol Hcl 50 Mg Tablet) 50 - 100 mg PO Q6H PRN PRN Reason: Severe Pain (Scale Score 7-10) Stop: 08/01/21 02:09
[2021-07-03] MEDS: QUEtiapine FUMARATE 100 MG TABLET PO SCH ×2 (21:10→21:17)
[2021-07-03] MEDS ORDERED: LACTATED RINGER'S 1,000 ML IV ONE (21:57)
[2021-07-03] MEDS: SODIUM CHLOR 0.45% + 20MEQ KCL 20 MEQ/1,000 ML BAG IV ONE (23:32)
[2021-07-04] MEDS: SODIUM CHLOR 0.45% + 20MEQ KCL 20 MEQ/1,000 ML BAG IV ONE (01:18)
[2021-07-04] MEDS: PIPERACILLIN/TAZOBACTAM 3.375 GM in DEXTROSE 5% 100 ML IV SCH ×3 (05:58→21:26)
[2021-07-04] MEDS: DAPTOmycin 300 MG in SYRINGE 0 ML IV SCH (08:55)
[2021-07-04] MEDS: ENOXAPARIN INJ 40 MG/0.4 ML SYR SQ SCH (08:55)
[2021-07-04] MEDS: MULTIVITAMIN TAB PO SCH (08:59)
[2021-07-04] MEDS: DONEPEZIL HCL 5 MG TAB PO SCH (08:59)
[2021-07-04] MEDS: ASCORBIC ACID 500 MG TAB PO SCH (08:59)
--- NOTE | 2021-07-04 19:02 | Hospitalist Progress Note ---
Date of Service July 04, 2021 Assessment & Plan (1) Decubital ulcer: Plan: Sepsis secondary to infected stage IV sacral decubitus wound/abscess/osteomyelitis Has been on intravenous Zosyn and daptomycin Status post excisional debridement of sacral ulcer down to bone 8 cm x 4 cm cont wound care per WOCN Will need buttermaker followup. ID consultation with recommendations pending. (2) Sacral osteomyelitis: Plan: Culture revealing of Morganella and Bacteroides, stop dapto and await ID thoughts on how to narrow Zosyn. (3) Fall: Plan: Per PT/OT, however, patient is not motivated/able to get out of bed. ?bedbound- total care patient. (4) Transaminitis: Plan: mildly elevated, however, they are trending down. Repeat in am. (5) Pelvic mass: Plan: Large cystic lesion attached to the right ovary without septation. Appears consistent with a simple cyst, however, based on the size, an MRI or surgical consultation is recommended. (6) HTN (hypertension): Plan: HTN, not on maintenance meds, slight elevated secondary to agitation (7) CKD (chronic kidney disease), stage III: Plan: Creatinine seems to be within normal limit (8) Dementia: Plan: severe dementia. Appears end stage (9) Physical deconditioning: Plan: Likely SNF at discharge. (10) DVT prophylaxis: Plan: Lovenox Full Code [facility] Plan: DVT prophylaxis Subcu Lovenox CODE STATUS Full Discussed in detail with the daughter. Likely to need placement but the family members may want her back home if she remains at her baseline. Admission and Anticipated Discharge Date Admission Date: July 01, 2021 Subjective 75 yo F lives at home with family and presented to the ER after a fall at home, found to have Stage IV sacral ulcer with osteomyelitis that was debrided. The patient has significant dementia and ROS cannot be obtained. She is pleasant and somewhat cooperative but cannot follow instructions. She did not eat much per nurse. Review of Systems Review of Systems: cannot obtain ROS as patient has significant dementia. Physical Exam Physical Exam: CONSTITUTIONAL: WNWD, vitals as above, generally well- appearing EYES: normal conjunctivae, no scleral icterus, small closed scratch on her right forehead ENT: external ear and nose normal RESPIRATORY: clear to auscultation bilaterally, no crackles, rales or wheezes, normal respiratory effort --very limited exam as patient is unable to take deep breaths CARDIOVASCULAR: regular rate and rhythm, S1 and 2 heard without murmurs, gallops or rubs, no JVD, no peripheral edema GASTROINTESTINAL: soft, nontender, nondistended. MUSCULOSKELETAL: appears to move all extremities equally but is not able to cooperate with an exam. Head is normocephalic and atraumatic SKIN: warm and dry NEUROLOGIC: CN 2-12 grossly intact, no sensory deficit, normal cognition, normal speech, no tremor PSYCHIATRIC: alert cooperative and oriented to person, place and time. Euthymic mood, makes good eye contact, language grossly intact, recent and remote memory grossly intact. LYMPHATIC: no LAD Results & Data Results & Data ([place]) Vital Signs (Past 12 Hours) Vital Signs Temp Pulse Resp BP BP Pulse Ox 07/04/21 16:07 36.0 C L 81 18 129/75 98 07/04/21 12:05 36.7 C 80 18 125/55 L 95 07/04/21 08:00 36.7 C 95 H 20 137/66 94 Medications Administered Current Inpatient Medications Acetaminophen (Acetaminophen 325 Mg Tab) 325 mg PO Q6H PRN PRN Reason: Mild Pain Stop: 08/01/21 01:05 Ascorbic Acid (Ascorbic Acid 500 Mg Tab) 500 mg PO QAM [facility] Stop: 08/02/21 13:29 Last Admin: 07/04/21 08:59 Dose: Not Given Documented by: Donepezil HCl (Donepezil Hcl 5 Mg Tab) 5 mg PO DAILY [facility] Stop: 08/01/21 08:59 Last Admin: 07/04/21 08:59 Dose: Not Given Documented by: Enoxaparin Sodium (Enoxaparin Inj 40 Mg/0.4 Ml Syr) 40 mg SQ QAM [facility] Stop: 08/01/21 08:59 Last Admin: 07/04/21 08:55 Dose: 40 mg Documented by: Piperacillin Sod/Tazobactam (Sod 3.375 gm/ Dextrose) 115 mls @ 28.75 mls/hr IV Q8H [facility]; Protocol Stop: 08/13/21 05:59 Last Infusion: 07/04/21 17:29 Dose: Infused Documented by: Daptomycin 300 mg/ Syringe 6 mls @ 3 mls/min IV Q24H [facility]; Protocol Stop: 08/13/21 09:59 Last Admin: 07/04/21 08:55 Dose: 3 mls/min Documented by: Miscellaneous Information (Daptomycin Consult Active) 1 ea N/A UD PRN PRN Reason: Consult Stop: 08/01/21 03:51 Miscellaneous Information (Piperacill/Tazobac Consult Active) 1 ea N/A UD PRN PRN Reason: Consult Stop: 08/01/21 03:51 Morphine Sulfate (Morphine Sulfate 2 Mg/Ml Carp) 2 mg IV Q4H PRN PRN Reason: Pain Stop: 07/16/21 02:09 Multivitamins (Multivitamin Tab) 1 tab PO QAM [facility] Stop: 08/02/21 13:29 Last Admin: 07/04/21 08:59 Dose: Not Given Documented by: Olanzapine (Olanzapine 10 Mg/2.1 Ml Sdv) 2.5 mg IM Q4H PRN PRN Reason: Anxiety/Agitation Stop: 08/01/21 00:05 Quetiapine Fumarate (Quetiapine Fumarate 100 Mg Tablet) 100 mg PO HS [facility] Stop: 08/01/21 20:59 Last Admin: 07/03/21 21:17 Dose: Not Given Documented by: Tramadol HCl (Tramadol Hcl 50 Mg Tablet) 50 - 100 mg PO Q6H PRN PRN Reason: Severe Pain (Scale Score 7-10) Stop: 08/01/21 02:09 (1) Dementia Dementia behavioral disturbance: with behavioral disturbance Dementia type: unspecified type Qualified Code(s): F03.91 - Unspecified dementia with behavioral disturbance (2) Decubital ulcer Pressure injury location: sacral region Pressure injury stage: unspecified pressure injury stage Qualified Code(s): L89.159 - Pressure ulcer of sacral region, unspecified stage (3) Fall Encounter type: initial encounter Qualified Code(s): W19.XXXA - Unspecified fall, initial encounter
[2021-07-04] MEDS: OLANZapine 10 MG/2.1 ML SDV IM PRN (21:14)
[2021-07-04] MEDS: QUEtiapine FUMARATE 100 MG TABLET PO SCH (21:14)
[2021-07-05] MEDS: PIPERACILLIN/TAZOBACTAM 3.375 GM in DEXTROSE 5% 100 ML IV SCH ×4 (06:03→22:40)
[2021-07-05 07:33] LABS: Mean Corpuscular Hemoglobin 28.9 pg (25-34); Mean Corpuscular Hgb Conc 32.3 g/dL (32-36); Mean Corpuscular Volume 89.6 fL (80-100); Mean Platelet Volume 9.9 fL (7.4-10.4); Platelet Count 355 K/uL (130-400); RDW Coefficient of Variation 13.1 % (11.5-14.5); RDW Standard Deviation 42.6 fL (36.4-46.3); Red Blood Count 3.46 M/uL (4.2-5.4); White Blood Count 7.01 K/uL (4.8-10.8)
[2021-07-05 08:05] LABS: BUN Creatinine Ratio 15.2 (10-20); Calcium 8.8 mg/dl (8.5-10.1); Creatinine Clr Calc Pharmacy 55.6 ml/min; Est GFR (African American) 90.6 ml/min; Est GFR (Non-African American) 78.1 ml/min; Magnesium 2.2 mg/dl (1.8-2.4); Potassium 3.5 mmol/L (3.5-5.1)
[2021-07-05 08:06] LABS: Phosphorus 2.4 mg/dl (2.5-4.9)
[2021-07-05] MEDS: ASCORBIC ACID 500 MG TAB PO SCH (11:56)
[2021-07-05] MEDS: MULTIVITAMIN TAB PO SCH (11:57)
[2021-07-05] MEDS: DONEPEZIL HCL 5 MG TAB PO SCH (11:57)
[2021-07-05] MEDS: ENOXAPARIN INJ 40 MG/0.4 ML SYR SQ SCH (14:12)
[2021-07-05] MEDS: DAPTOmycin 300 MG in SYRINGE 0 ML IV SCH (14:14)
--- NOTE | 2021-07-05 14:40 | Hospitalist Progress Note ---
Date of Service July 05, 2021 Assessment & Plan (1) Decubital ulcer: Plan: Sepsis secondary to infected stage IV sacral decubitus wound/abscess/osteomyelitis Has been on intravenous Zosyn and daptomycin Status post excisional debridement of sacral ulcer down to bone 8 cm x 4 cm cont wound care per WOCN Will need termite treater followup. ID consultation with recommendations pending. (2) Sacral osteomyelitis: Plan: Culture revealing of Morganella and Bacteroides, stop dapto and await ID thoughts on how to narrow Zosyn. (3) Dementia: Plan: Dementia, rapid decline over the last few weeks as per family. Palliative care consultation for goals of care discussion. (4) Transaminitis: Plan: mildly elevated, however, they are trending down. Repeat in am. (5) Pelvic mass: Plan: Large cystic lesion attached to the right ovary without septation. Appears consistent with a simple cyst, however, based on the size, an MRI or surgical consultation is recommended. (6) Physical deconditioning: Plan: PT/OT, rehab (7) DVT prophylaxis: Plan: Lovenox Full Code Dispo-placement into facility DO Nadege Max Plan: Lovenox Full Code [facility]po[facility]uncertain at this time[facility] and Anticipated Discharge Date Admission Date: July 01, 2021 Subjective 75 yo F lives at home with family and presented to the ER after a fall at home, found to have Stage IV sacral ulcer with osteomyelitis that was debrided. The patient has significant dementia and ROS cannot be obtained. She is pleasant and somewhat cooperative but cannot follow instructions. Still not eating much per primary nurse. Wound is about 6cm in diameter per nurse and doesn't appear red or have any odor. She remains on broad spectrum antibiotics and is afebrile Review of Systems Review of Systems: ros cannot be obtained 2/2 severe dementia Physical Exam Physical Exam: CONSTITUTIONAL: WNWD, vitals as above, generally well- appearing EYES: normal conjunctivae, no scleral icterus ENT: external ear and nose normal RESPIRATORY: clear to auscultation bilaterally, no crackles, rales or wheezes, normal respiratory effort --very limited exam as patient is unable to take deep breaths and is resistant to being moved around in the bed. CARDIOVASCULAR: regular rate and rhythm, S1 and 2 heard without murmurs, gallops or rubs, no JVD, no peripheral edema GASTROINTESTINAL: soft, nontender, nondistended. MUSCULOSKELETAL: appears to move all extremities equally but is not able to cooperate with an exam. Head is normocephalic and atraumatic SKIN: warm and dry NEUROLOGIC: no gross focal deficit, however, this cannot be examined as she is not following instructions. Normal speech PSYCHIATRIC: alert uncooperative and disoriented. Results & Data Results & Data ([facility]) Vital Signs (Past 12 Hours) Vital Signs Temp Pulse Pulse Resp BP Pulse Ox 07/05/21 07:22 77 07/05/21 06:53 36.8 C 72 18 110/78 92 Laboratory Results Short CBC 07/05/21 Range/Units 07:26 WBC 7.01 (4.8-10.8) K/uL Hgb 10.0 L (12.0-16.0) g/dL Hct 31.0 L (37-47) % Plt Count 355 (130-400) K/uL BMP 07/05/21 07:26 Sodium 141 Potassium 3.5 Chloride 110 H Carbon Dioxide 23 BUN 11 Creatinine 0.74 Glucose 101 H Calcium 8.8 Medications Administered Current Inpatient Medications Acetaminophen (Acetaminophen 325 Mg Tab) 325 mg PO Q6H PRN PRN Reason: Mild Pain Stop: 08/01/21 01:05 Ascorbic Acid (Ascorbic Acid 500 Mg Tab) 500 mg PO QAM [facility] Stop: 08/02/21 13:29 Last Admin: 07/05/21 11:56 Dose: Not Given Documented by: Donepezil HCl (Donepezil Hcl 5 Mg Tab) 5 mg PO DAILY [facility] Stop: 08/01/21 08:59 Last Admin: 07/05/21 11:57 Dose: Not Given Documented by: Enoxaparin Sodium (Enoxaparin Inj 40 Mg/0.4 Ml Syr) 40 mg SQ QAM [facility] Stop: 08/01/21 08:59 Last Admin: 07/05/21 14:12 Dose: 40 mg Documented by: Piperacillin Sod/Tazobactam (Sod 3.375 gm/ Dextrose) 115 mls @ 28.75 mls/hr IV Q8H [facility]; Protocol Stop: 08/13/21 05:59 Last Admin: 07/05/21 12:23 Dose: 28.8 mls/hr Documented by: Daptomycin 300 mg/ Syringe 6 mls @ 3 mls/min IV Q24H [facility]; Protocol Stop: 08/13/21 09:59 Last Admin: 07/05/21 14:14 Dose: 3 mls/min Documented by: Miscellaneous Information (Daptomycin Consult Active) 1 ea N/A UD PRN PRN Reason: Consult Stop: 08/01/21 03:51 Miscellaneous Information (Piperacill/Tazobac Consult Active) 1 ea N/A UD PRN PRN Reason: Consult Stop: 08/01/21 03:51 Morphine Sulfate (Morphine Sulfate 2 Mg/Ml Carp) 2 mg IV Q4H PRN PRN Reason: Pain Stop: 07/16/21 02:09 [facility]ivit[facility] ([facility]amin Tab) [facility] [place] Stop: 08/02/21 13:29 Last Admin: 07/05/21 11:57 Dose: Not Given Documented by: Olanzapine (Olanzapine 10 Mg/2.1 Ml Sdv) 2.5 mg IM Q4H PRN PRN Reason: Anxiety/Agitation Stop: 08/01/21 00:05 Last Admin: 07/04/21 21:14 Dose: 2.5 mg Documented by: Quetiapine Fumarate (Quetiapine Fumarate 100 Mg Tablet) 100 mg PO HS [facility] Stop: 08/01/21 20:59 Last Admin: 07/04/21 21:14 Dose: 100 mg Documented by: Tramadol HCl (Tramadol Hcl 50 Mg Tablet) 50 - 100 mg PO Q6H PRN PRN Reason: Severe Pain (Scale Score 7-10) Stop: 08/01/21 02:09 (1) Dementia Dementia behavioral disturbance: with behavioral disturbance Dementia type: unspecified type Qualified Code(s): F03.91 - Unspecified dementia with behavioral disturbance (2) Decubital ulcer Pressure injury location: sacral region Pressure injury stage: stage 4 Qu alified Code(s): L89.154 - Pressure ulcer of sacral region, stage 4
[2021-07-05] MEDS: QUEtiapine FUMARATE 100 MG TABLET PO SCH (21:09)
[2021-07-05] MEDS: OLANZapine 10 MG/2.1 ML SDV IM PRN (21:10)
[2021-07-06] MEDS: PIPERACILLIN/TAZOBACTAM 3.375 GM in DEXTROSE 5% 100 ML IV SCH ×3 (05:33→21:55)
[2021-07-06 06:57] LABS: Hematocrit (blood only) 31.2 % (37-47); Hemoglobin 10.1 g/dL (12.0-16.0); Mean Corpuscular Hemoglobin 28.7 pg (25-34); Mean Corpuscular Hgb Conc 32.4 g/dL (32-36); Mean Corpuscular Volume 88.6 fL (80-100); Mean Platelet Volume 10.1 fL (7.4-10.4); Platelet Count 385 K/uL (130-400); RDW Standard Deviation 41.6 fL (36.4-46.3); Red Blood Count 3.52 M/uL (4.2-5.4); White Blood Count 5.51 K/uL (4.8-10.8)
[2021-07-06 07:27] LABS: Albumin Level 2.2 gm/dl (3.4-5.0); BUN Creatinine Ratio 11.8 (10-20); Calcium 8.3 mg/dl (8.5-10.1); Creatinine Clr Calc Pharmacy 60.4 ml/min; Est GFR (African American) 97.3 ml/min; Potassium 3.5 mmol/L (3.5-5.1)
[2021-07-06 07:30] LABS: Albumin Globulin Ratio 0.6 (0.9-2); Bilirubin,Total 0.6 mg/dl (0.2-1); Globulin 3.7 gm/dl (2.5-4.0); Total Protein 5.9 gm/dl (6.4-8.2)
[2021-07-06] MEDS: MULTIVITAMIN TAB PO SCH ×2 (08:58→09:05)
[2021-07-06] MEDS: ENOXAPARIN INJ 40 MG/0.4 ML SYR SQ SCH (08:58)
[2021-07-06] MEDS: DONEPEZIL HCL 5 MG TAB PO SCH ×2 (08:58→09:05)
[2021-07-06] MEDS: ASCORBIC ACID 500 MG TAB PO SCH ×2 (08:58→09:05)
--- NOTE | 2021-07-06 15:03 | Palliative Care Consultation ---
Date of Consultation July 06, 2021 Assessment & Plan (1) Palliative care encounter: I spoke with Aundrea's daughter, Raven, by phone. Family has been considering home with nursing support versus [facility] facility. Aundrea's daughter, Shelley, cares for Aundrea at home. She has support from her but no outside support. We discussed Aundrea needing 24/7 care with extensive wound care which would be difficult to provide at home. She would be agreeable to SNF and says that she will discuss this with Shelley. We discussed overall goals for her care and they are very much wanting Aundrea to get better to go back home. I asked Raven, what her expectation of getting better was which she again says would be to go home. We discussed her having limited rehab potential with her current illness. I also asked about code status and whether Aundrea has any advance directive or had ever talked about her wishes. Raven feels that they would want her to remain full code. Again, her hope for the outcome of this would be to return home. We discussed that it is unlikely that Aundrea could be successfully resuscitated to return to her current status if that were to happen and that she would almost certainly need skilled care if she did survive. They will discuss as a family. (2) Physical deconditioning: (3) Sacral osteomyelitis: (4) Decubital ulcer: Pressure injury location: sacral region Pressure injury stage: stage 4 Qualified Code(s): L89.154 - Pressure ulcer of sacral region, stage 4 (5) Dementia: Dementia behavioral disturbance: with behavioral disturbance Dementia type: unspecified type Qualified Code(s): F03.91 - Unspecified dementia with behavioral disturbance History of Present Illness Reason for Consultation: goals of care Requesting Physician: Dr. Spear Attending Physician: Brittany Spear, DO History of Present Illness 75 yo lady with dementia who is cared for at home by her granddaughter. Per the patient's daughter, Aundrea is mostly in bed at home but is able to move from bed to commode or chair with assistance and a walker. She is admitted with a large sacral decubitus ulcer with cellulitis, abscess and subsequent sepsis. She did have debridement and was also found to have osteomyelitis of the sacrum. She is culture positive for Morganella and two Bacteroides species. She is currently on antibiotic therapy and wound care. Aundrea is in bed and awake but not cooperative with exam and unable to provide history. Per RN she is incontinent of urine. Allergies Allergy/AdvReac Type Severity Reaction Status Date / Time No Known Allergies Allergy Unverified 07/01/21 17:08 Home Medications Medication Instructions Recorded Confirmed Type donepezil 5 mg tablet 5 mg PO DAILY 07/18/20 07/01/21 History lorazepam 0.5 mg tablet 0.5 mg PO TID PRN 07/18/20 07/01/21 History quetiapine 100 mg tablet 100 mg PO HS 07/18/20 07/01/21 History tramadol 50 mg tablet 50 - 100 mg PO Q6H PRN 07/18/20 07/01/21 History acetaminophen 650 mg 650 mg PO Q4H PRN 07/01/21 07/01/21 History tablet,extended release (Tylenol Arthritis Pain) [id number] ear 4 drp OTIC (EAR) TID 07/01/21 07/01/21 History drops,suspension Patient History Medical History CKD (chronic kidney disease), stage III Dementia HTN (hypertension) Osteoporosis Surgical History History of bilateral knee replacement History of cataract surgery History of total hip replacement Hx of cholecystectomy Social History Smoking Status: Unknown if ever smoked Hx Alcohol Use: No Hx Substance Use: No Preferred Language: Lao Communication Ability: altered me Replacer Required: No Beliefs That Will Affect Care: None marital status: Current Living Situation: Family Other Information That Helps Us Care for You: No Feels Safe at Home: Yes Assistive Devices: None Review of Systems Review of Systems: Unobtainable due to cognitive status [place] Symptom Assessment Scale PainAD 1/3 Dyspnea 0/3 Drowsiness 0/3 Palliative Performance Score 40% Physical Exam Constitutional: no acute distress Respiratory: normal respiratory effort; no labored breathing Gastrointestinal (Abdomen): nontender Neurologic: Speech / Cognition: + abnormal cognition Genitourinary: incontinent Results & Data ([facility]) Vital Signs (Past 12 Hours) Vital Signs Temp Pulse Resp BP Pulse Ox 07/06/21 06:48 97.9 F 68 20 138/62 97 08/16 03:26 97.9 F 99 H 18 137/62 93 PG Care Time/CCT Total # of Minutes Spent Total Time Spent: 60 Total Time Spent with Patient: Total time spent is greater than 50% in coordination of care (as documented) at patient's floor/unit and/or counseling patient: family education and support, goals of care, code status Coding Level of Care Code 68387 Initial Inpt Care Lvl 2 Diagnoses Palliative care encounter Z51.5 Physical deconditioning R53.81 Sacral osteomyelitis M46.28 Decubital ulcer L89.154 Pressure injury location: sacral region Pressure injury stage: stage 4 Dementia F03.91 Dementia behavioral disturbance: with behavioral disturbance Dementia type: unspecified type
--- NOTE | 2021-07-06 15:47 | Electrocardiogram Report ---
Test Reason : Blood Pressure : / mmHG Vent. Rate : 086 BPM Atrial Rate : 086 BPM P-R Int : 136 ms QRS Dur : 078 ms QT Int : 364 ms P-R-T Axes : 113 050 076 degrees QTc Int : 435 ms Normal sinus rhythm Normal ECG When compared with ECG of 01-JUL-2021 22:12, No significant change was found Confirmed by Db Souza ([id number]) on 07/06/2021 3:47:17 PM Referred By: REFERRED SELF Confirmed By:Db Souza
--- NOTE | 2021-07-06 19:12 | Hospitalist Progress Note ---
Date of Service July 06, 2021 Assessment & Plan (1) Decubital ulcer: Plan: Sepsis secondary to infected stage IV sacral decubitus wound/abscess/osteomyelitis Has been on intravenous Zosyn and daptomycin Status post excisional debridement of sacral ulcer down to bone 8 cm x 4 cm cont wound care per WOCN Will need termite exterminator helper followup. ID consultation with recommendations pending. (2) Sacral osteomyelitis: Plan: Culture revealing of Morganella and Bacteroides, stop dapto and await ID thoughts on how to narrow Zosyn. (3) Dementia: Plan: Dementia, rapid decline over the last few weeks as per family. Palliative care consultation for goals of care discussion. (4) Transaminitis: Plan: mildly elevated, however, they are trending down. Repeat in am. (5) Pelvic mass: Plan: Large cystic lesion attached to the right ovary without septation. Appears consistent with a simple cyst, however, based on the size, an MRI or surgical consultation is recommended. (6) Physical deconditioning: Plan: PT/OT, rehab (7) DVT prophylaxis: Plan: Lovenox Full Code Dispo-placement into facility DO Nadege Max Plan: Lovenox Full Code Dispo-uncertain at this time. [facility] Admission and Anticipated Discharge Date Admission Date: July 01, 2021 Subjective 75 yo F lives at home with family and presented to the ER after a fall at home, found to have Stage IV sacral ulcer with osteomyelitis that was debrided. The patient has significant dementia and ROS cannot be obtained. She is pleasant and somewhat cooperative but cannot follow instructions. Not eating or communicating much at all. Wound visualized while nurses bathed her. Afebrile Review of Systems Review of Systems: ros cannot be obtained 2/2 severe dementia Physical Exam Physical Exam: CONSTITUTIONAL: WNWD, vitals as above, generally well- appearing EYES: normal conjunctivae, no scleral icterus ENT: external ear and nose normal RESPIRATORY: clear to auscultation bilaterally, no crackles, rales or wheezes, normal respiratory effort --very limited exam as patient is unable to take deep breaths and is resistant to being moved around in the bed. CARDIOVASCULAR: regular rate and rhythm, S1 and 2 heard without murmurs, gallops or rubs, no JVD, no peripheral edema GASTROINTESTINAL: soft, nontender, nondistended. MUSCULOSKELETAL: appears to move all extremities equally but is not able to cooperate with an exam. Head is normocephalic and atraumatic SKIN: warm and dry, large sacral defect in the skin-no surrounding erythema, min serosanguinous drainage. NEUROLOGIC: no gross focal deficit, however, this cannot be examined as she is not following instructions. Normal speech PSYCHIATRIC: alert uncooperative and disoriented. Results & Data Results & Data ([facility]) Laboratory Results Short CBC 07/06/21 Range/Units 06:15 WBC 5.51 (4.8-10.8) K/uL Hgb 10.1 L (12.0-16.0) g/dL Hct 31.2 L (37-47) % Plt Count 385 (130-400) K/uL BMP 07/06/21 06:15 Sodium 142 Potassium 3.5 Chloride 112 H Carbon Dioxide 25 BUN 8 Creatinine 0.69 Glucose 91 Calcium 8.3 L Liver Function 07/06/21 Range/Units 06:15 Total Bilirubin 0.6 (0.2-1) mg/dl AST 38 H (15-37) U/L ALT 41 (12-78) U/L Alkaline Phosphatase 100 (45-117) U/L Albumin 2.2 L (3.4-5.0) gm/dl Medications Administered Current Inpatient Medications Acetaminophen (Acetaminophen 325 Mg Tab) 325 mg PO Q6H PRN PRN Reason: Mild Pain Stop: 08/01/21 01:05 Ascorbic Acid (Ascorbic Acid 500 Mg Tab) 500 mg PO QAM [facility] Stop: 08/02/21 13:29 Last Admin: 07/06/21 09:05 Dose: Not Given Documented by: Donepezil HCl (Donepezil Hcl 5 Mg Tab) 5 mg PO DAILY [facility] Stop: 08/01/21 08:59 Last Admin: 07/06/21 09:05 Dose: Not Given Documented by: Enoxaparin Sodium (Enoxaparin Inj 40 Mg/0.4 Ml Syr) 40 mg SQ QAM [facility] Stop: 08/01/21 08:59 Last Admin: 07/06/21 08:58 Dose: 40 mg Documented by: Piperacillin Sod/Tazobactam (Sod 3.375 gm/ Dextrose) 115 mls @ 28.75 mls/hr IV Q8H [facility]; Protocol Stop: 08/13/21 05:59 Last Infusion: 07/06/21 17:19 Dose: Infused Documented by: Miscellaneous Information (Piperacill/Tazobac Consult Active) 1 ea N/A UD PRN PRN Reason: Consult Stop: 08/01/21 03:51 Multivitamins (Multivitamin Tab) 1 tab PO QAM [facility] Stop: 08/02/21 13:29 Last Admin: 07/06/21 09:05 Dose: Not Given Documented by: Olanzapine (Olanzapine 10 Mg/2.1 Ml Sdv) 2.5 mg IM Q4H PRN PRN Reason: Anxiety/Agitation Stop: 08/01/21 00:05 Last Admin: 07/05/21 21:10 Dose: 2.5 mg Documented by: Quetiapine Fumarate (Quetiapine Fumarate 100 Mg Tablet) 100 mg PO HS [facility] Stop: 08/01/21 20:59 Last Admin: 07/05/21 21:09 Dose: Not Given Documented by: Tramadol HCl (Tramadol Hcl 50 Mg Tablet) 50 - 100 mg PO Q6H PRN PRN Reason: Severe Pain (Scale Score 7-10) Stop: 08/01/21 02:09 (1) Dementia Dementia behavioral disturbance: with behavioral disturbance Dementia type: unspecified type Qualified Code(s): F03.91 - Unspecified dementia with behavioral disturbance (2) Decubital ulcer Pressure injury location: sacral region Pressure injury stage: stage 4 Qualified Code(s): L89.154 - Pressure ulcer of sacral region, stage 4
[2021-07-06] MEDS: QUEtiapine FUMARATE 100 MG TABLET PO SCH (21:55)
[2021-07-07] MEDS: PIPERACILLIN/TAZOBACTAM 3.375 GM in DEXTROSE 5% 100 ML IV SCH ×3 (05:43→20:21)
[2021-07-07] MEDS: ASCORBIC ACID 500 MG TAB PO SCH (09:34)
[2021-07-07] MEDS: DONEPEZIL HCL 5 MG TAB PO SCH (09:35)
[2021-07-07] MEDS: ENOXAPARIN INJ 40 MG/0.4 ML SYR SQ SCH (09:36)
[2021-07-07] MEDS: MULTIVITAMIN TAB PO SCH (09:37)
--- NOTE | 2021-07-07 14:23 | OB/GYN Consultation ---
Date of Consultation July 07, 2021 History of Present Illness Attending Physician: Brittany Spear DO History of Present Illness Patient is a 75-year-old postmenopausal female with history of dementia and admitted for decubitus ulcer of sacrum. There was an incidental finding of right ovarian cyst per CT of abdomen and confirmed with pelvic ultrasound. CT suggested a simple cyst of right ovary and pelvic ultrasound was recommended. Pelvic ultrasound was done here while in the hospital with similar findings: INDINGS: The uterus measured 4.6 x 2.1 x 2.8 cm. The endometrial stripe measured 0.3 cm. The right ovary measured 8.3 x 5.6 x 6 7.3 cm. There is 7.5 x 5.3 x 6.7 cm cystic lesion is adjacent to the right ovary which shows no evidence of septation, soft tissue component or internal blood flow. The left ovary is not visualized. . There is no ultrasonographic evidence of ovarian torsion. It should be noted that ovarian torsion can be present with normal Doppler ultrasonographic findings. There was no evidence of pathologic free pelvic fluid. IMPRESSION: Large cystic lesion adjacent to the right ovary without septation, internal blood flow or soft tissue component most likely representing simple cysts. Due to large size of this lesion in postmenopausal female, further evaluation with MRI or surgical consult is suggested. And I was consulted. I came to see her but it is hard to take history from her. She denies pelvic pain, abdominal pain, vaginal bleeding. 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 I was recommended to talk to her daughter Raven. I called Raven and discussed above findings. Simple cysts are usually benign, no indication for imminent surgery. Per CT scan she had this cyst in 2016. I do not have those records. We recommend surveillance of cysts with blood work for CA-125 and repeat ultrasound in 3 months. If CA 25 is within normal limits and repeat ultrasound has stable appearance of the cyst we then recommend ultrasound in 6 months and then yearly. Raven, her daughter understands all and agrees to follow-up with repeat ultrasound at [facility] in [address] the [facility] with and let my office arrange for this follow-up. Thank you for this consult. Allergies Allergy/AdvReac Type Severity Reaction Status Date / Time No Known Allergies Allergy Unverified 07/01/21 17:08 Home Medications Medication Instructions Recorded Confirmed Type donepezil 5 mg tablet 5 mg PO DAILY 07/18/20 07/01/21 History lorazepam 0.5 mg tablet 0.5 mg PO TID PRN 07/18/20 07/01/21 History quetiapine 100 mg tablet 100 mg PO HS 07/18/20 07/01/21 History tramadol 50 mg tablet 50 - 100 mg PO Q6H PRN 07/18/20 07/01/21 History acetaminophen 650 mg 650 mg PO Q4H PRN 07/01/21 07/01/21 History tablet,extended release (Tylenol Arthritis Pain) qgcelkfa-ztnabbned-jlgafdiej ear 4 drp OTIC (EAR) TID 07/01/21 07/01/21 History drops,suspension Patient History Medical History CKD (chronic kidney disease), stage III Dementia HTN (hypertension) Osteoporosis Surgical History History of bilateral knee replacement History of cataract surgery History of total hip replacement Hx of cholecystectomy Social History Smoking Status: Unknown if ever smoked Hx Alcohol Use: No Hx Substance Use: No Preferred Language: Hungarian Communication Ability: altered me Seaweed Harvester Required: No Beliefs That Will Affect Care: None marital status: Current Living Situation: Family Other Information That Helps Us Care for You: No Feels Safe at Home: Yes Assistive Devices: None Results & Data ([facility]) Vital Signs (Past 12 Hours) Vital Signs Temp Pulse Resp BP Pulse Ox 07/07/21 08:10 35.9 C L 90 16 130/80 100
--- NOTE | 2021-07-07 15:03 | Hospitalist Progress Note ---
Date of Service July 07, 2021 Assessment & Plan (1) Decubital ulcer: Plan: Sepsis secondary to infected stage IV sacral decubitus wound/abscess/osteomyelitis Has been on intravenous Zosyn and daptomycin Status post excisional debridement of sacral ulcer down to bone 8 cm x 4 cm cont wound care per [facility]OCN Will need adjunct faculty for medical terminology followup. ID consultation (2) Sacral osteomyelitis: Plan: Culture revealing of Morganella and Bacteroides, stop dapto and await ID thoughts on how to narrow/cont Zosyn. IV abx needed for 6 weeks. (3) Fall: Plan: Per PT/OT, however, patient is not motivated/able to get out of bed. ?bedbound- total care patient. (4) Transaminitis: Plan: mildly elevated, however, they are trending down. Repeat in am. (5) Pelvic mass: Plan: Large cystic lesion attached to the right ovary without septation. AUTO TRANSMISSION TECHNICIAN recommends CA-125 now and close follow-up in their office. (6) HTN (hypertension): Plan: HTN, not on maintenance meds, controlled. (7) CKD (chronic kidney disease), stage III: Plan: Creatinine seems to be within normal limit (8) Dementia: Plan: severe dementia. Appears end stage (9) Physical deconditioning: Plan: Likely SNF at discharge. (10) DVT prophylaxis: Plan: Lovenox Full Code Dispo-placement into facility DO Nadege Max Hospitalist Admission and Anticipated Discharge Date Admission Date: July 01, 2021 Subjective 75 yo F lives at home with family and presented to the ER after a fall at home, found to have Stage IV sacral ulcer with osteomyelitis that was debrided. The patient has significant dementia and ROS cannot be obtained. She is pleasant and somewhat cooperative but cannot follow instructions. Not eating or communicating much at all. Afebrile, no real changes, bedbound total care patient Review of Systems Review of Systems: Cannot obtain ROS 2/2 severe dementia Physical Exam Physical Exam: CONSTITUTIONAL: WNWD, vitals as above, generally well- appearing EYES: normal conjunctivae, no scleral icterus ENT: external ear and nose normal RESPIRATORY: clear to auscultation bilaterally, no crackles, rales or wheezes, normal respiratory effort CARDIOVASCULAR: regular rate and rhythm, S1 and 2 heard without murmurs, gallops or rubs, no JVD, no peripheral edema GASTROINTESTINAL: soft, nontender, nondistended. MUSCULOSKELETAL: appears to move all extremities equally but is not able to cooperate with an exam. Head is normocephalic and atraumatic SKIN: warm and dry, Stage IV sacral wound NEUROLOGIC: no gross focal deficit, however, this cannot be examined as she is not following instructions. Normal speech PSYCHIATRIC: alert uncooperative and disoriented. Results & Data Results & Data ([facility]) Vital Signs (Past 12 Hours) Vital Signs Temp Pulse Resp BP Pulse Ox 07/07/21 08:10 35.9 C L 90 16 130/80 100 Medications Administered Current Inpatient Medications Acetaminophen (Acetaminophen 325 Mg Tab) 325 mg PO Q6H PRN PRN Reason: Mild Pain Stop: 08/01/21 01:05 Ascorbic Acid (Ascorbic Acid 500 Mg Tab) 500 mg PO QAM [facility] Stop: 08/02/21 13:29 Last Admin: 07/07/21 09:34 Dose: Not Given Documented by: Donepezil HCl (Donepezil Hcl 5 Mg Tab) 5 mg PO DAILY [facility] Stop: 08/01/21 08:59 Last Admin: 07/07/21 09:35 Dose: Not Given Documented by: Enoxaparin Sodium (Enoxaparin Inj 40 Mg/0.4 Ml Syr) 40 mg SQ QAM [facility] Stop: 08/01/21 08:59 Last Admin: 07/07/21 09:36 Dose: 40 mg Documented by: Piperacillin Sod/Tazobactam (Sod 3.375 gm/ Dextrose) 115 mls @ 28.75 mls/hr IV Q8H [facility]; Protocol Stop: 08/13/21 05:59 Last Admin: 07/07/21 14:32 Dose: 28.8 mls/hr Documented by: Miscellaneous Information (Piperacill/Tazobac Consult Active) 1 ea N/A UD PRN PRN Reason: Consult Stop: 08/01/21 03:51 Multivitamins (Multivitamin Tab) 1 tab PO QAM [facility] Stop: 08/02/21 13:29 Last Admin: 07/07/21 09:37 Dose: Not Given Documented by: Olanzapine (Olanzapine 10 Mg/2.1 Ml Sdv) 2.5 mg IM Q4H PRN PRN Reason: Anxiety/Agitation Stop: 08/01/21 00:05 Last Admin: 07/05/21 21:10 Dose: 2.5 mg Documented by: Quetiapine Fumarate (Quetiapine Fumarate 100 Mg Tablet) 100 mg PO HS EMPERATRIZ Stop: 08/01/21 20:59 Last Admin: 07/06/21 21:55 Dose: Not Given Documented by: Tramadol HCl (Tramadol Hcl 50 Mg Tablet) 50 - 100 mg PO Q6H PRN PRN Reason: Severe Pain (Scale Score 7-10) Stop: 08/01/21 02:09 (1) Dementia Dementia behavioral disturbance: with behavioral disturbance Dementia type: unspecified type Qualified Code(s): F03.91 - Unspecified dementia with behavioral disturbance (2) Decubital ulcer Pressure injury location: sacral region Pressure injury stage: stage 4 Qualified Code(s): L89.154 - Pressure ulcer of sacral region, stage 4 (3) Fall Encounter type: initial encounter Qualified Code(s): W19.XXXA - Unspecified fall, initial encounter
[2021-07-07] MEDS: QUEtiapine FUMARATE 100 MG TABLET PO SCH (20:21)
[2021-07-08] MEDS: PIPERACILLIN/TAZOBACTAM 3.375 GM in DEXTROSE 5% 100 ML IV SCH ×2 (05:31→13:58)
[2021-07-08] MEDS: ENOXAPARIN INJ 40 MG/0.4 ML SYR SQ SCH (10:05)
[2021-07-08] MEDS: DONEPEZIL HCL 5 MG TAB PO SCH ×2 (10:05→10:12)
--- NOTE | 2021-07-08 14:51 | Hospitalist Progress Note ---
Date of Service July 08, 2021 Assessment & Plan (1) Decubital ulcer: Plan: Sepsis secondary to infected stage IV sacral decubitus wound/abscess/osteomyelitis Has been on intravenous Zosyn and daptomycin Status post excisional debridement of sacral ulcer down to bone 8 cm x 4 cm cont wound care per [facility]OCN-wound vac placed on 07/07-evaluated today and coming off 2/2 urinary incontinence. Quiñones catheter placed. Discussed with ID-will cont next 5 weeks of therapy with daily ertapenem PICC placed. (2) Protein-calorie malnutrition, severe: Plan: accepting only small sips/bits of food. Patient will need artificial hydration and nutrition to meet her needs, and she has shown a consistent decline in the past week. Considered PEG tube with GI, however, this would not be able to be placed endoscopically because of the anatomy. If feeding tube was desired by family, this would be placed via surgery or IR. Dr. Varela will continue this conversation of goals of care with patient's family in am. (3) Sacral osteomyelitis: Plan: plan as above. (4) Fall: Plan: remains a high fall risk, deconditioned and with dementia. (5) Transaminitis: Plan: resolved. Follow-up as outpatient. (6) Pelvic mass: Plan: Large cystic lesion attached to the right ovary without septation. POINTER MACHINE OPERATOR recommends CA-125 now (pending) and close follow-up in their office. Spoke with daughter by phone today who is aware of the need for follow-up. (7) HTN (hypertension): Plan: HTN, not on maintenance meds, controlled. (8) CKD (chronic kidney disease), stage III: Plan: Creatinine seems to be within normal limit (9) Dementia: Plan: severe dementia. Appears end stage (10) Physical deconditioning: Plan: SNF at discharge. (11) DVT prophylaxis: Plan: Lovenox Full Code Dispo-placement into facility DO Nadege Max Hospitalist Admission and Anticipated Discharge Date Admission Date: July 01, 2021 Subjective 75 yo F lives at home with family and presented to the ER after a fall at home, found to have Stage IV sacral ulcer with osteomyelitis that was debrided. The patient has significant dementia and ROS cannot be obtained. She is pleasant and somewhat cooperative but cannot follow instructions. She is not eating much-discussed her calorie intake with both nurse and daily sales audit clerk today Not meeting her nutrition goals. Review of Systems Review of Systems: unable to perform ROS 2/2 end stage dementia. Physical Exam Physical Exam: CONSTITUTIONAL: WNWD, vitals as above, generally well- appearing EYES: normal conjunctivae, no scleral icterus ENT: external ear and nose normal RESPIRATORY: clear to auscultation bilaterally, no crackles, rales or wheezes, normal respiratory effort CARDIOVASCULAR: regular rate and rhythm, S1 and 2 heard without murmurs, gallops or rubs, no JVD, no peripheral edema GASTROINTESTINAL: soft, nontender, nondistended. MUSCULOSKELETAL: appears to move all extremities equally but is not able to cooperate with an exam. Head is normocephalic and atraumatic SKIN: warm and dry, Stage IV sacral wound-wound vac in place, PICC in RUE NEUROLOGIC: no gross focal deficit, however, this cannot be examined as she is not following instructions. Normal speech PSYCHIATRIC: alert uncooperative and disoriented. Results & Data Results & Data ([facility]) Vital Signs (Past 12 Hours) Vital Signs Temp Pulse Resp BP Pulse Ox 07/08/21 07:46 36.7 C 83 16 132/73 91 Medications Administered Current Inpatient Medications Acetaminophen (Acetaminophen 325 Mg Tab) 325 mg PO Q6H PRN PRN Reason: Mild Pain Stop: 08/01/21 01:05 Ascorbic Acid (Ascorbic Acid 500 Mg Tab) 500 mg PO QAM [facility] Stop: 08/02/21 13:29 Last Admin: 07/07/21 09:34 Dose: Not Given Documented by: Donepezil HCl (Donepezil Hcl 5 Mg Tab) 5 mg PO DAILY [facility] Stop: 08/01/21 08:59 Last Admin: 07/08/21 10:12 Dose: Not Given Documented by: Enoxaparin Sodium (Enoxaparin Inj 40 Mg/0.4 Ml Syr) 40 mg SQ QAM [facility] Stop: 08/01/21 08:59 Last Admin: 07/08/21 10:05 Dose: 40 mg Documented by: Piperacillin Sod/Tazobactam (Sod 3.375 gm/ Dextrose) 115 mls @ 28.75 mls/hr IV Q8H [facility]; Protocol Stop: 08/13/21 05:59 Last Admin: 07/08/21 13:58 Dose: 28.8 mls/hr Documented by: Miscellaneous Information (Piperacill/Tazobac Consult Active) 1 ea N/A UD PRN PRN Reason: Consult Stop: 08/01/21 03:51 Multivitamins (Multivitamin Tab) [facility] Stop: 08/02/21 13:29 Last Admin: 07/07/21 09:37 Dose: Not Given Documented by: Olanzapine (Olanzapine 10 Mg/2.1 Ml Sdv) 2.5 mg IM Q4H PRN PRN Reason: Anxiety/Agitation Stop: 08/01/21 00:05 Last Admin: 07/05/21 21:10 Dose: 2.5 mg Documented by: Quetiapine Fumarate (Quetiapine Fumarate 100 Mg Tablet) 100 mg PO HS [facility] Stop: 08/01/21 20:59 Last Admin: 07/07/21 20:21 Dose: 100 mg Documented by: Tramadol HCl (Tramadol Hcl 50 Mg Tablet) 50 - 100 mg PO Q6H PRN PRN Reason: Severe Pain (Scale Score 7-10) Stop: 08/01/21 02:09 (1) Dementia Dementia behavioral disturbance: with behavioral disturbance Dementia type: unspecified type Qualified Code(s): F03.91 - Unspecified dementia with behavioral disturbance (2) Decubital ulcer Pressure injury location: sacral region Pressure injury stage: stage 4 Qualified Code(s): L89.154 - Pressure ulcer of sacral region, stage 4 (3) Fall Encounter type: initial encounter Qualified Code(s): W19.XXXA - Unspecified fall, initial encounter
--- NOTE | 2021-07-08 15:44 | Gastrointestinal Consultation ---
Date of Consultation July 08, 2021 Assessment & Plan (1) Malnutrition: Due to intrathoracic stomach, PEG tube is not an option. If family persist in request for enteral nutrition, then consider surgical consult or transfer to tertiary care for IR placement. Unfortunately, due to intrathoracic stomach (on CT), she is not a candidate for endoscopic PEG tube placement. Options for feeding tube would be surgical placement or IR placement at a tertiary care center. Supervising Physician Co-Signing Physician Notes I saw and evaluated the patient, she is unable to provide any historical information due to her dementia. We did review her chart as a feeding tube was requested by the internal medicine service. Physical examination Elderly female, no obvious distress I did not examine her decubitus ulcers as a been evaluated by other providers No scleral icterus Impression: Patient with a history of advanced dementia now having difficulty with eating. Unfortunately the patient has what appears to be intrathoracic stomach on her imaging study. Given this a PEG tube is not feasible. Should a feeding to be noted I would suggest surgical consultation or perhaps referral to a tertiary center with interventional radiology. In addition should the patient have nausea perhaps she would have some benefit with an upper GI series to better characterize the hernia. History of Present Illness Reason for Consultation: Consideration for PEG Requesting Physician: Dr. Spear Attending Physician: Brittany Spear, History of Present Illness Pt was brought to [facility] on 07/01 for a fall. She has dementia and is being tx for a decubitus ulcer with cellulitis. Family reports poor po intake for weeks. GI is consulted to consider a PEG tube. I was unable to enter the pt's room due to a sterile procedure being completed (PICC). Chart was reviewed including review of labs, CT scan. Allergies Allergy/AdvReac Type Severity Reaction Status Date / Time No Known Allergies Allergy Unverified 07/01/21 17:08 Home Medications Medication Instructions Recorded Confirmed Type donepezil 5 mg tablet 5 mg PO DAILY 07/18/20 07/01/21 History lorazepam 0.5 mg tablet 0.5 mg PO TID PRN 07/18/20 07/01/21 History quetiapine 100 mg tablet 100 mg PO HS 07/18/20 07/01/21 History tramadol 50 mg tablet 50 - 100 mg PO Q6H PRN 07/18/20 07/01/21 History acetaminophen 650 mg 650 mg PO Q4H PRN 07/01/21 07/01/21 History tablet,extended release (Tylenol Arthritis Pain) wodtwmsd-djruicmsp-alptizmhh ear 4 drp OTIC (EAR) TID 07/01/21 07/01/21 History drops,suspension Patient History Medical History CKD (chronic kidney disease), stage III Dementia HTN (hypertension) Osteoporosis Surgical History History of bilateral knee replacement History of cataract surgery History of total hip replacement Hx of cholecystectomy Social History Smoking Status: Unknown if ever smoked Hx Alcohol Use: No Hx Substance Use: No Preferred Language: Russian Communication Ability: altered me Electrical Prospecting Observer Required: No Beliefs That Will Affect Care: None marital status: Current Living Situation: Family Other Information That Helps Us Care for You: No Feels Safe at Home: Yes Assistive Devices: None Review of Systems Review of Systems: Not obtained Physical Exam Physical Exam: Not completed Results & Data ([facility]) Vital Signs (Past 12 Hours) Vital Signs Temp Pulse Resp BP Pulse Ox 07/08/21 07:46 36.7 C 83 16 132/73 91 Laboratory Results WBC 5, Hb 10, Hct 31, Na 142, K 3.5, Cl 112, CO2 25, BUN 8, Cr 91. Diagnostic Findings CTAP 07/01/21: 1. Streak and motion compromised examination 2. There is a sacral decubitus ulceration is detailed above with evidence of significant surrounding cellulitis and soft tissue abscess. 3. There is associated erosive/destructive change involving the lower sacrum and coccyx consistent with osteomyelitis. 4. There is an 8.6 cm simple cystic lesion in the pelvis, likely related to the right ovary. This has increased in size dating back to 2016, and nonemergent pelvic ultrasound and gynecology assessment is recommended. 5. There is a large complex hiatal hernia as above. Chest X-ray07/01/21: No significant change compared to the prior study. No acute process. Stable large hiatus hernia.
[2021-07-08] MEDS ORDERED: ERTAPENEM CONSULT ACTIVE PRN (21:06)
[2021-07-08] MEDS: ERTAPENEM SODIUM 1,000 MG in SODIUM CHLORIDE 0.9% 50 ML IV SCH (21:32)
[2021-07-08] MEDS: QUEtiapine FUMARATE 100 MG TABLET PO SCH (21:32)
[2021-07-09] MEDS: ENOXAPARIN INJ 40 MG/0.4 ML SYR SQ SCH (09:25)
[2021-07-09] MEDS: ONDANSETRON INJ 2 MG/ML 2 ML VIAL IV SCH ×2 (09:25→15:59)
[2021-07-09] MEDS: ACETAMINOPHEN 1,000 MG/100 ML VIAL IV SCH ×2 (09:25→15:59)
[2021-07-09] MEDS: DONEPEZIL HCL 5 MG TAB PO SCH (09:51)
[2021-07-09] MEDS: PANTOprazole 40 MG TAB PO SCH (09:52)
[2021-07-09 10:38] LABS: Hematocrit (blood only) 30.1 % (37-47); Hemoglobin 9.7 g/dL (12.0-16.0); Mean Corpuscular Hemoglobin 29.1 pg (25-34); Mean Corpuscular Hgb Conc 32.2 g/dL (32-36); Mean Corpuscular Volume 90.4 fL (80-100); Mean Platelet Volume 9.9 fL (7.4-10.4); Platelet Count 296 K/uL (130-400); RDW Coefficient of Variation 13.7 % (11.5-14.5); RDW Standard Deviation 45.3 fL (36.4-46.3); Red Blood Count 3.33 M/uL (4.2-5.4); White Blood Count 6.41 K/uL (4.8-10.8)
[2021-07-09 10:57] LABS: BUN Creatinine Ratio 14.2 (10-20); Calcium 8.7 mg/dl (8.5-10.1); Creatinine Clr Calc Pharmacy 68.3 ml/min; Est GFR (African American) 101.3 ml/min; Est GFR (Non-African American) 87.4 ml/min; Magnesium 2.1 mg/dl (1.8-2.4); Phosphorus 2.8 mg/dl (2.5-4.9); Potassium 3.1 mmol/L (3.5-5.1)
--- NOTE | 2021-07-09 12:21 | Palliative Care Progress Note ---
Date of Service July 09, 2021 Assessment & Plan (1) Pain: Plan: With immobility and sacral ulcer. She does not complain of pain with dementia but is exhibiting some pain behaviors with irritability, facial grimace, resistance to care. Will try routine tylenol. Continue prn tramadol. (2) Palliative care encounter: Plan: Family has said in the past that they would want any interventions needed to help her return home. Plan is for SNF placement for rehab and wound care, though rehab potential is limited. I spoke with her daughter, Raven, today. She confirms this plan. We did discuss concerns about her protein calorie malnutrition with albumin of 2.2. This will limit potential healing of her sacral ulcer. Potential option would be PEG feeding though data is not good for improving nutritional status with PEG feedings in elderly with dementia. She would not be a candidate for PEG placement here and would need transfer to another hospital. I explained this to Raven. She will discuss with Kayleen. (3) Protein-calorie malnutrition, severe: (4) Sacral osteomyelitis: (5) Decubital ulcer: (6) Dementia: Admission and Anticipated Discharge Date Admission Date: July 01, 2021 Subjective Irritable. Not cooperative with exam. Answers no to all questions. Review of Systems Review of Systems: Unobtainable due to cognitive status [place] Symptom Assessment PainAD 1/3 Dyspnea by observation 0/3 Drowsiness 0/3 Physical Exam Constitutional: + ill appearing and + thin Respiratory: normal respiratory effort; no labored breathing Cardiovascular: Extremities: no edema Gastrointestinal (Abdomen): soft Musculoskeletal: Extremities: + muscle atrophy Results & Data ([facility]) Vital Signs (Past 12 Hours) Vital Signs Temp Pulse Resp BP Pulse Ox 07/09/21 07:00 98.2 F 88 20 123/66 94 PG Care Time/CCT Total # of Minutes Spent Total Time Spent with Patient: Total time spent is greater than 50% in coor dination of care (as documented) at patient's floor/unit and/or counseling patient: Coding Level of Care Code 59054 Subseq Hosp Care Lvl 2 Diagnoses Palliative care encounter Z51.5 Pain R52 Protein-calorie malnutrition, severe E43 Sacral osteomyelitis M46.28 Decubital ulcer L89.154 Pressure injury location: sacral region Pressure injury stage: stage 4 Dementia F03.91 Dementia behavioral disturbance: with behavioral disturbance Dementia type: unspecified type (1) Decubital ulcer Pressure injury location: sacral region Pressure injury stage: stage 4 Qualified Code(s): L89.154 - Pressure ulcer of sacral region, stage 4 (2) Dementia Dementia behavioral disturbance: with behavioral disturbance Dementia type: unspecified type Qualified Code(s): F03.91 - Unspecified dementia with behavioral disturbance
[2021-07-09] MEDS ORDERED: POTASSIUM CHLORIDE 20 MEQ/15 ML UDC PO ONE (15:00)
[2021-07-09] MEDS: D5NSS + 20MEQ KCL 20 MEQ/1,000 ML BAG IV SCH ×2 (15:42→22:28)
--- NOTE | 2021-07-09 16:21 | Hospitalist Progress Note ---
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 Quiñones catheter placed. Discussed with ID-will cont next 5 weeks of therapy with daily ertapenem PICC placed. Will need to be monitored with weekly labs. (2) Protein-calorie malnutrition, severe: Plan: 2/2 failure to thrive. Accepting only small sips/bits of food. Patient will need artificial hydration and nutrition to meet her needs, and she has shown a consistent decline in the past week. Considered PEG tube with GI, however, this would not be able to be placed endoscopically because of the anatomy. If feeding tube was desired by family, this would be placed via surgery or IR. General surgeon at [facility] has declined to place. NGT placed with trickle feeds to start tonight. Will need definitive placement of artificial feeding method in place prior to discharge to rehab. (3) Sacral osteomyelitis: Plan: plan as above. (4) Fall: Plan: remains a high fall risk, deconditioned and with dementia. (5) Transaminitis: Plan: resolved. Follow-up as outpatient. (6) Pelvic mass: Plan: Large cystic lesion attached to the right ovary without septation. VICE PRESIDENT FIXED INCOME recommends CA-125 now (normal) and close follow-up in their office. (7) HTN (hypertension): Plan: HTN, not on maintenance meds, controlled. (8) CKD (chronic kidney disease), stage III: Plan: Creatinine seems to be within normal limit (9) Dementia: Plan: severe dementia. Appears end stage (10) Physical deconditioning: Plan: SNF at discharge. (11) DVT prophylaxis: Plan: Lovenox Full Code Dispo-placement into facility DO Nadege Max Hospitalist Admission and Anticipated Discharge Date Admission Date: July 01, 2021 Subjective 75 yo F lives at home with family and presented to the ER after a fall at home, found to have Stage IV sacral ulcer with osteomyelitis that was debrided. The patient has significant dementia and ROS cannot be obtained. She is pleasant and somewhat cooperative but cannot follow instructions. Continues to refuse food and water except on occasion. Per work manager, she is not eating enough to survive Discussed ways to feed her with granddaughter Kyra Decided on a trial NGT while trying to find someone to place a feeding tube in her. Gen surgery declined to perform this here--she will need to go to another facility Review of Systems Review of Systems: cannot be obtained 2/2 dementia Physical Exam Physical Exam: CONSTITUTIONAL: WNWD, vitals as above, generally well- appearing EYES: normal conjunctivae, no scleral icterus ENT: external ear and nose normal RESPIRATORY: clear to auscultation bilaterally, no crackles, rales or wheezes, normal respiratory effort CARDIOVASCULAR: regular rate and rhythm, S1 and 2 heard without murmurs, gallops or rubs, no JVD, no peripheral edema GASTROINTESTINAL: soft, nontender, nondistended. MUSCULOSKELETAL: appears to move all extremities equally but is not able to cooperate with an exam. Head is normocephalic and atraumatic SKIN: warm and dry, Stage IV sacral wound-wound vac in place, PICC in RUE NEUROLOGIC: no gross focal deficit, however, this cannot be examined as she is not following instructions. Normal speech PSYCHIATRIC: alert uncooperative and disoriented. Results & Data Results & Data ([facility]) Vital Signs (Past 12 Hours) Vital Signs Temp Pulse Resp BP Pulse Ox 07/09/21 14:33 36.8 C 88 20 109/66 93 07/09/21 07:00 36.8 C 88 20 123/66 94 Laboratory Results Short CBC 07/09/21 Range/Units 10:24 WBC 6.41 (4.8-10.8) K/uL Hgb 9.7 L (12.0-16.0) g/dL Hct 30.1 L (37-47) % Plt Count 296 (130-400) K/uL BMP 07/09/21 10:24 Sodium 145 Potassium 3.1 L Chloride 113 H Carbon Dioxide 24 BUN 9 Creatinine 0.61 Glucose 87 Calcium 8.7 Medications Administered Current Inpatient Medications Acetaminophen (Acetaminophen 325 Mg Tab) 325 mg PO Q6H PRN PRN Reason: Mild Pain Stop: 08/01/21 01:05 Ascorbic Acid (Ascorbic Acid 500 Mg Tab) 500 mg PO QAM [facility] Stop: 08/02/21 13:29 Last Admin: 07/07/21 09:34 Dose: Not Given Documented by: Donepezil HCl (Donepezil Hcl 5 Mg Tab) 5 mg PO DAILY [facility] Stop: 08/01/21 08:59 Last Admin: 07/09/21 09:51 Dose: Not Given Documented by: Enoxaparin Sodium (Enoxaparin Inj 40 Mg/0.4 Ml Syr) 40 mg SQ QAM [facility] Stop: 08/01/21 08:59 Last Admin: 07/09/21 09:25 Dose: 40 mg Documented by: Ertapenem (Ertapenem Consult Active) 1 ea N/A UD PRN PRN Reason: Consult Stop: 08/07/21 21:05 Heparin Sodium (Beef Lung) (Heparin 10 Unit/Ml 5 Ml Flush) 5 ml FLUSH PRN PRN PRN Reason: Flush Stop: 08/07/21 16:55 Last Admin: 07/09/21 09:47 Dose: 5 ml Documented by: Ertapenem 1,000 mg/ Sodium (Chloride) 60 mls @ 100 mls/hr IV DAILY@2100 [facility]MP[facility]AT[facility]; Protocol Stop: 08/19/21 21:14 Last Infusion: 07/08/21 23:27 Dose: Infused Documented by: Acetaminophen (Ofirmev) 1,000 mg in 100 mls @ 400 mls/hr IV Q8H [facility] Stop: 07/10/21 16:29 Last Admin: 07/09/21 15:59 Dose: 400 mls/hr Documented by: Potassium Chloride/Dextrose/Sod Cl (D5nss + 20meq Kcl) 20 meq in 1,000 mls @ 125 mls/hr IV .Q8H [facility] Stop: 08/08/21 14:59 Last Admin: 07/09/21 15:42 Dose: 125 mls/hr Documented by: Multivitamins (Multivitamin Tab) 1 tab PO QAM [facility] Stop: 08/02/21 13:29 Last Admin: 07/07/21 09:37 Dose: Not Given Documented by: Olanzapine (Olanzapine 10 Mg/2.1 Ml Sdv) 2.5 mg IM Q4H PRN PRN Reason: Anxiety/Agitation Stop: 08/01/21 00:05 Last Admin: 07/05/21 21:10 Dose: 2.5 mg Documented by: Ondansetron HCl (Ondansetron Inj 2 Mg/Ml 2 Ml Vial) 4 mg IV Q8H [facility] Stop: 08/08/21 08:14 Last Admin: 07/09/21 15:59 Dose: 4 mg Documented by: Pantoprazole Sodium (Pantoprazole 40 Mg Tab) 40 mg PO QAM [facility] Stop: 08/08/21 08:59 Last Admin: 07/09/21 09:52 Dose: Not Given Documented by: Quetiapine Fumarate (Quetiapine Fumarate 100 Mg Tablet) 100 mg PO HS [facility] Stop: 08/01/21 20:59 Last Admin: 07/08/21 21:32 Dose: 100 mg Documented by: Tramadol HCl (Tramadol Hcl 50 Mg Tablet) 50 - 100 mg PO Q6H PRN PRN Reason: Severe Pain (Scale Score 7-10) Stop: 08/01/21 02:09 (1) Dementia Dementia behavioral disturbance: with behavioral disturbance Dementia type: unspecified type Qualified Code(s): F03.91 - Unspecified dementia with behavioral disturbance (2) Decubital ulcer Pressure injury location: sacral region Pressure injury stage: stage 4 Qualified Code(s): L89.154 - Pressure ulcer of sacral region, stage 4 (3) Fall Encounter type: initial encounter Qualified Code(s): W19.XXXA - Unspecified fall, initial encounter
--- NOTE | 2021-07-09 17:49 | XRay Report ---
KUB HISTORY: Status post placement of an enteric tube verify placement for NG Tube COMPARISON: Chest radiograph 07/01/2021, CT abdomen and pelvis 07/01/2021 FINDINGS: Large hiatal hernia. Enteric tube projects over the midline lower chest. Cholecystectomy. N o urolith identified. No acute fracture. Nonobstructive bowel gas pattern. Bones appear grossly intac t. Right-sided PICC is noted with distal tip in the expected location of the mid SVC. IMPRESSION: Large hiatal hernia with distal tip of enteric tube projected over the midline lower chest. This may be within the esophagus or stomach. ACT 112: Negative or not required by law. The above report was generated using voice recognition software. It may contain grammatical, syntax o r spelling errors. Electronically signed by: John Elder M.D. 07/09/2021 5:48 PM
[2021-07-09] MEDS ORDERED: FIBERSOURCE HN 1.2 CAL 1000 ML BAG NG SCH (18:15)
--- NOTE | 2021-07-09 18:41 | XRay Report ---
KUB HISTORY: Status post placement of an enteric tube NGT placement COMPARISON: KUB of same day at 5:16 PM FINDINGS: Large hiatal hernia. Repositioning enteric tube again projects over the right paracentral l ower chest. Cholecystectomy. No urolith identified. No acute fracture. Nonobstructive bowel gas patte rn. Bones appear grossly intact. Right-sided PICC is noted with distal tip in the expected location o f the mid SVC. IMPRESSION: Large hiatal hernia. Repositioned enteric tube is again noted overlying the right paracentral lower c hest. Repositioning with follow-up imaging is needed. ACT 112: Negative or not required by law. The above report was generated using voice recognition software. It may contain grammatical, syntax o r spelling errors. Electronically signed by: John Elder M.D. 07/09/2021 6:39 PM
[2021-07-09] MEDS: QUEtiapine FUMARATE 100 MG TABLET PO SCH (21:25)
[2021-07-09] MEDS: ERTAPENEM SODIUM 1,000 MG in SODIUM CHLORIDE 0.9% 50 ML IV SCH (22:28)
[2021-07-10] MEDS: ACETAMINOPHEN 1,000 MG/100 ML VIAL IV SCH ×3 (01:17→16:29)
[2021-07-10] MEDS: ONDANSETRON INJ 2 MG/ML 2 ML VIAL IV SCH ×4 (01:18→23:55)
[2021-07-10] MEDS: D5NSS + 20MEQ KCL 20 MEQ/1,000 ML BAG IV SCH ×3 (06:06→21:54)
--- NOTE | 2021-07-10 06:06 | Electrocardiogram Report ---
Test Reason : Blood Pressure : / mmHG Vent. Rate : 083 BPM Atrial Rate : 083 BPM P-R Int : 140 ms QRS Dur : 082 ms QT Int : 382 ms P-R-T Axes : 108 045 060 degrees QTc Int : 448 ms Sinus rhythm with Premature atrial complexes Otherwise normal ECG When compared with ECG of 04-JUL-2021 19:19, Premature atrial complexes are now Present Confirmed by Trev Corado ([id number]) on 07/10/2021 6:06:27 AM Referred By: REFERRED SELF Confirmed By:Trev Corado
[2021-07-10 06:20] LABS: BUN Creatinine Ratio 13.5 (10-20); Calcium 7.8 mg/dl (8.5-10.1); Creatinine Clr Calc Pharmacy 65.1 ml/min; Est GFR (African American) 99.8 ml/min; Est GFR (Non-African American) 86.1 ml/min; Phosphorus 2.2 mg/dl (2.5-4.9); Potassium 3.7 mmol/L (3.5-5.1)
--- NOTE | 2021-07-10 08:25 | XRay Report ---
KUB HISTORY: Status post placement of a feeding tube corsafe placement COMPARISON: KUB of same day at 6:06 PM FINDINGS: Large hiatal hernia. Repositioning enteric tube again projects over the right paracentral l ower chest with distal tip projected superiorly. Cholecystectomy. No urolith identified. No acute fra cture. Nonobstructive bowel gas pattern. Bones appear grossly intact. Right-sided PICC is noted with distal tip in the expected location of the mid SVC. IMPRESSION: Large hiatal hernia. Repositioning enteric tube again overlies the right paracentral lower chest, now with the distal tip projected superiorly. ACT 112: Negative or not required by law. The above report was generated using voice recognition software. It may contain grammatical, syntax o r spelling errors. Electronically signed by: John Elder M.D. 07/10/2021 8:24 AM
--- NOTE | 2021-07-10 08:26 | XRay Report ---
KUB HISTORY: Reposition enteric tube coresafe placement COMPARISON: KUB of same day at 9:18 PM FINDINGS: Large hiatal hernia. Repositioning enteric tube again projects over the right paracentral l ower chest, now with the distal tip projected superiorly. Cholecystectomy. No urolith identified. No acute fracture. Nonobstructive bowel gas pattern. Bones appear grossly intact. Right-sided PICC is no yogi with distal tip in the expected location of the mid SVC. IMPRESSION: Large lateral hernia. Repositioning enteric tube again overlies the right paracentral lower chest wit h the distal tip projected superiorly. This is likely within the distal esophagus or proximal stomach . ACT 112: Negative or not required by law. The above report was generated using voice recognition software. It may contain grammatical, syntax o r spelling errors. Electronically signed by: John Elder M.D. 07/10/2021 8:25 AM
[2021-07-10] MEDS: DONEPEZIL HCL 5 MG TAB PO SCH (10:05)
[2021-07-10] MEDS: ENOXAPARIN INJ 40 MG/0.4 ML SYR SQ SCH (10:05)
[2021-07-10] MEDS: PANTOprazole 40 MG TAB PO SCH (10:05)
[2021-07-10 12:47] LABS: Appearance Urine Cloudy (Clear); Bilirubin Urine 1+ (Negative); Blood Urine 3+ (Negative); Color Urine Red; Glucose Urine UA Negative (Negative); Ketones Urine Negative (Negative); Leukocyte Esterase Urine Negative (Negative); Nitrite Urine Negative (Negative); Protein Urine 2+ (Negative); Specific Gravity Urine 1.025 (1.000-1.030); Urobilinogen Urine Negative (Negative); pH Urine 5.5 (4.5-7.5)
[2021-07-10 12:52] LABS: RBC Urine >30 /hpf (0-4)
[2021-07-10 12:55] LABS: Bacteria Urine 1+ (Negative)
[2021-07-10] MEDS: POT PHOSPHATE MONOBASIC W/ SOD TAB PO SCH ×3 (14:26→22:14)
--- NOTE | 2021-07-10 21:03 | Hospitalist Progress Note ---
Date of Service July 10, 2021 Assessment & Plan (1) Sacral osteomyelitis: (2) Protein-calorie malnutrition, severe: (3) Physical deconditioning: Plan: #. Decubital ulcer #. Sepsis #. Sacral osteomyelitis Sepsis secondary to infected stage IV sacral decubitus wound/abscess/osteomyelitis Has been on intravenous Zosyn and daptomycin Status post excisional debridement of sacral ulcer down to bone 8 cm x 4 cm cont wound care per WOCN-wound vac placed on 07/07-this was dislodging 2/2 urinary incontinence. Quiñones catheter placed. Discussed with ID-will cont next 5 weeks of therapy with daily ertapenem PICC placed. Will need to be monitored with weekly labs. #. Protein-calorie malnutrition, severe #. Fall - high risk d/t deconditioning 2/2 failure to thrive. Accepting only small sips/bits of food. Patient will need artificial hydration and nutrition to meet her needs, and she has shown a consistent decline in the past week. Considered PEG tube with GI, however, this would not be able to be placed endoscopically because of the anatomy. If feeding tube was desired by family, this would be placed via surgery or IR. General surgeon at [facility] has declined to place. Multiple unsuccessful attempts at NG tube placement. Will need definitive placement of artificial feeding method in place prior to discharge to rehab. Might need transfer to tertiary care, will get in touch with family. #. Transaminitis: resolved. Follow-up as outpatient. #. Pelvic mass: Large cystic lesion attached to the right ovary without septation. WAITER/WAITRESS TAKE OUT recommends CA-125 now (normal) and close follow-up in their office. #. Other chronic medical conditions: Hypertension, CKD, dementia, physical deconditioning Blood pressure at goal, creatinine within normal limits, patient likely in end stage dementia Likely need SNF upon discharge. #. DVT prophylaxis: Lovenox Full Code Dispo-placement into facility Admission and Anticipated Discharge Date Admission Date: July 01, 2021 Subjective Patient was lying in bed, confused, guarded upon trying to examine her, per RN she is taking meds, has questionable eating, last bowel movement on . She had had resistance with multiple attempts at corsef insertion. Physical Exam Physical Exam: CONSTITUTIONAL: WNWD, vitals as above, generally well- appearing EYES: normal conjunctivae, no scleral icterus ENT: external ear and nose normal RESPIRATORY: clear to auscultation bilaterally, no crackles, rales or wheezes, normal respiratory effort CARDIOVASCULAR: regular rate and rhythm, S1 and 2 heard without murmurs, gallops or rubs, no JVD, no peripheral edema GASTROINTESTINAL: soft, nontender, nondistended. MUSCULOSKELETAL: appears to move all extremities equally but is not able to cooperate with an exam. Head is normocephalic and atraumatic SKIN: warm and dry, Stage IV sacral wound-wound vac in place, PICC in RUE NEUROLOGIC: no gross focal deficit, however, this cannot be examined as she is not following instructions. Did not talk. PSYCHIATRIC: alert uncooperative and disoriented. Results & Data Results & Data ([facility]) Vital Signs (Past 12 Hours) Vital Signs Temp Pulse Resp BP Pulse Ox 07/10/21 15:05 36.4 C L 84 17 115/64 95
[2021-07-10] MEDS: ERTAPENEM SODIUM 1,000 MG in SODIUM CHLORIDE 0.9% 50 ML IV SCH (21:55)
[2021-07-10] MEDS: QUEtiapine FUMARATE 100 MG TABLET PO SCH (22:14)
[2021-07-11] MEDS: D5NSS + 20MEQ KCL 20 MEQ/1,000 ML BAG IV SCH (06:07)
[2021-07-11 06:31] LABS: Hematocrit (blood only) 30.7 % (37-47); Hemoglobin 9.6 g/dL (12.0-16.0); Mean Corpuscular Hemoglobin 28.7 pg (25-34); Mean Corpuscular Hgb Conc 31.3 g/dL (32-36); Mean Corpuscular Volume 91.6 fL (80-100); Mean Platelet Volume 10.3 fL (7.4-10.4); Platelet Count 274 K/uL (130-400); RDW Coefficient of Variation 14.4 % (11.5-14.5); RDW Standard Deviation 47.1 fL (36.4-46.3); Red Blood Count 3.35 M/uL (4.2-5.4)
[2021-07-11 06:54] LABS: BUN Creatinine Ratio 14.5 (10-20); Calcium 8.3 mg/dl (8.5-10.1); Creatinine Clr Calc Pharmacy 63.1 ml/min; Est GFR (African American) 98.8 ml/min; Est GFR (Non-African American) 85.2 ml/min; Ferritin 254.1 ng/ml (8-388); Magnesium 1.8 mg/dl (1.8-2.4); Potassium 4.4 mmol/L (3.5-5.1)
[2021-07-11 07:32] LABS: Folate (Folic Acid) 15.4 ng/ml (>5.38)
[2021-07-11] MEDS: ONDANSETRON INJ 2 MG/ML 2 ML VIAL IV SCH ×3 (08:52→23:46)
[2021-07-11] MEDS: ENOXAPARIN INJ 40 MG/0.4 ML SYR SQ SCH (08:53)
[2021-07-11] MEDS: POT PHOSPHATE MONOBASIC W/ SOD TAB PO SCH ×4 (08:53→21:44)
[2021-07-11] MEDS: DONEPEZIL HCL 5 MG TAB PO SCH (08:53)
[2021-07-11] MEDS: PANTOprazole 40 MG TAB PO SCH (08:53)
[2021-07-11] MEDS: D5W AND 1/2NSS 1,000 ML IV SCH ×2 (10:35→17:52)
[2021-07-11] MEDS: MAGNESIUM OXIDE 400 MG TAB PO SCH ×2 (11:53→21:44)
--- NOTE | 2021-07-11 17:15 | Hospitalist Progress Note ---
Date of Service July 11, 2021 Assessment & Plan (1) Sacral osteomyelitis: (2) Protein-calorie malnutrition, severe: (3) Physical deconditioning: Plan: #. Decubital ulcer #. Sepsis #. Sacral osteomyelitis Sepsis secondary to infected stage IV sacral decubitus wound/abscess/osteomyelitis Has been on intravenous Zosyn and daptomycin Status post excisional debridement of sacral ulcer down to bone 8 cm x 4 cm cont wound care per WOCN-wound vac placed on 07/07-this was dislodging 2/2 urinary incontinence. Quiñones catheter placed. Discussed with ID-will cont next 5 weeks of therapy with daily ertapenem PICC placed. Will need to be monitored with weekly labs. #. Protein-calorie malnutrition, severe #. Fall - high risk d/t deconditioning 2/2 failure to thrive. Accepting only small sips/bits of food. Patient will need artificial hydration and nutrition to meet her needs, and she has shown a consistent decline in the past week. Considered PEG tube with GI, however, this would not be able to be placed endoscopically because of the anatomy. If feeding tube was desired by family, this would be placed via surgery or IR. General surgeon at [facility] has declined to place. Multiple unsuccessful attempts at NG tube placement. Will need definitive placement of artificial feeding method in place prior to discharge to rehab unless she is feeding well. Possibility of transfer to tertiary care if family desires PEG tube has been discussed. #. Transaminitis: resolved. Follow-up as outpatient. #. Pelvic mass: Large cystic lesion attached to the right ovary without septation. PROVIDER CONTRACTING CONSULTANT recommends CA-125 now (normal) and close follow-up in their office. #. Other chronic medical conditions: Hypertension, CKD, dementia, physical deconditioning Blood pressure at goal, creatinine within normal limits, patient likely in end stage dementia Likely need SNF upon discharge. #. DVT prophylaxis: Paddyx 07/11 call with daughter for possible transfer to [place] as a follow-up for earlier discussion regarding PEG tube placement for her feeding her daughter states that she is eating/drinking at her baseline in front of family members, hence they are coming in during her mealtime to help her feed. Because she is eating in front of them, they do not want PEG tube now and expressed interest to follow-up in the care home as well to help her with feeding. She was aware of earlier discussion regarding PEG tube and GI not being able to put PEG tube while in hospital/surgery declining to put PEG tube in her. Full Code Dispo-at her baseline, can be discharged to facility once bed is available unless new issues arise. Admission and Anticipated Discharge Date Admission Date: July 01, 2021 Subjective Patient was lying in bed, confused, guarded upon trying to examine her, per RN she is taking meds, has questionable eating, last bowel movement on 18. She had had resistance with multiple attempts at corsef insertion. She drinks her boost in front of her family members per RN. 07/11 call with daughter for possible transfer to [place] as a follow-up for early discussion regarding PEG tubeher daughter states that she is eating/drinking at her baseline in front of family members, hence they are coming in during her mealtime to help her feed. Because she is eating in front of them, they do not want PEG tube and expressed interest to follow-up in the care home as well to help her with eating. She was aware of earlier discussion regarding PEG tube and GI not being able to put PEG tube while in hospital/surgery declining to put PEG tube in her. Physical Exam Physical Exam: CONSTITUTIONAL: WNWD, vitals as above, generally well-ap pearing EYES: normal conjunctivae, no scleral icterus ENT: external ear and nose normal RESPIRATORY: clear to auscultation bilaterally, no crackles, rales or wheezes, normal respiratory effort CARDIOVASCULAR: regular rate and rhythm, S1 and 2 heard without murmurs, gallops or rubs, no JVD, no peripheral edema GASTROINTESTINAL: soft, nontender, nondistended. MUSCULOSKELETAL: appears to move all extremities equally but is not able to cooperate with an exam. Head is normocephalic and atraumatic SKIN: warm and dry, Stage IV sacral wound-wound vac in place, PICC in RUE NEUROLOGIC: no gross focal deficit, however, this cannot be examined as she is not following instructions. Did not talk. PSYCHIATRIC: alert uncooperative and disoriented. Results & Data Results & Data ([facility]) Vital Signs (Past 12 Hours) Vital Signs Temp Pulse Resp BP Pulse Ox 07/11/21 16:07 36.7 C 90 17 121/71 92 07/11/21 08:11 36.5 C 90 17 116/56 L 92
[2021-07-11] MEDS: ERTAPENEM SODIUM 1,000 MG in SODIUM CHLORIDE 0.9% 50 ML IV SCH (21:33)
[2021-07-11] MEDS: QUEtiapine FUMARATE 100 MG TABLET PO SCH (21:44)
[2021-07-12 06:38] LABS: BUN Creatinine Ratio 13.9 (10-20); Calcium 8.5 mg/dl (8.5-10.1); Creatinine Clr Calc Pharmacy 69.4 ml/min; Est GFR (African American) 101.9 ml/min; Est GFR (Non-African American) 87.9 ml/min; Magnesium 1.4 mg/dl (1.8-2.4); Phosphorus 2.1 mg/dl (2.5-4.9); Potassium 4.4 mmol/L (3.5-5.1)
[2021-07-12] MEDS: ENOXAPARIN INJ 40 MG/0.4 ML SYR SQ SCH (08:49)
[2021-07-12] MEDS: POT PHOSPHATE MONOBASIC W/ SOD TAB PO SCH ×4 (08:49→21:00)
[2021-07-12] MEDS: DONEPEZIL HCL 5 MG TAB PO SCH (08:49)
[2021-07-12] MEDS: MAGNESIUM OXIDE 400 MG TAB PO SCH ×2 (08:49→21:00)
[2021-07-12] MEDS: ONDANSETRON INJ 2 MG/ML 2 ML VIAL IV SCH ×3 (08:49→23:53)
[2021-07-12] MEDS: PANTOprazole 40 MG TAB PO SCH (08:49)
[2021-07-12] MEDS: MAGNESIUM SULFATE / D5W 1 GM/100 ML BAG IV SCH ×2 (10:40→13:10)
--- NOTE | 2021-07-12 16:52 | Hospitalist Progress Note ---
Date of Service July 12, 2021 Assessment & Plan (1) Sacral osteomyelitis: (2) Protein-calorie malnutrition, severe: (3) Physical deconditioning: Plan: #. Decubital ulcer #. Sepsis #. Sacral osteomyelitis Sepsis secondary to infected stage IV sacral decubitus wound/abscess/osteomyelitis Has been on intravenous Zosyn and daptomycin Status post excisional debridement of sacral ulcer down to bone 8 cm x 4 cm cont wound care per WOCN-wound vac placed on 07/07-this was dislodging 2/2 urinary incontinence. Quiñones catheter placed. Discussed with ID-will cont next 5 weeks of therapy with daily ertapenem PICC placed. Will need to be monitored with weekly labs. #. Protein-calorie malnutrition, severe #. Fall - high risk d/t deconditioning 2/2 failure to thrive. Accepting only small sips/bits of food. Patient will need artificial hydration and nutrition to meet her needs, and she has shown a consistent decline in the past week. Considered PEG tube with GI, however, this would not be able to be placed endoscopically because of the anatomy. If feeding tube was desired by family, this would be placed via surgery or IR. General surgeon at [facility] has declined to place. Multiple unsuccessful attempts at NG tube placement. Will need definitive placement of artificial feeding method in place prior to discharge to rehab unless she is feeding well. Possibility of transfer to tertiary care if family desires PEG tube has been discussed. #. Transaminitis: resolved. Follow-up as outpatient. #. Pelvic mass: Large cystic lesion attached to the right ovary without septation. 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 #. Other chronic medical conditions: Hypertension, CKD, dementia, physical deconditioning Blood pressure at goal, creatinine within normal limits, patient likely in end stage dementia Likely need SNF upon discharge. #. DVT prophylaxis: Lovegeorgiex 07/11 call with daughter for possible transfer to [place] as a follow-up for earlier discussion regarding PEG tube placement for her feeding her daughter states that she is eating/drinking at her baseline in front of family members, hence they are coming in during her mealtime to help her feed. Because she is eating in front of them, they do not want PEG tube now and [facility] to [facility] her with feeding. She was aware of earlier discussion regarding PEG tube and GI not being able to put PEG tube while in hospital/surgery declining to put PEG tube in her. Full Code Dispo-at her baseline, can be discharged to facility once bed is available unless new issues arise. Admission and Anticipated Discharge Date Admission Date: July 01, 2021 Subjective Patient was lying in bed, confused, still guarded upon trying to examine her,. Per RN she does not like being touched. Per RN she has eaten partially green bar and boost today morning in front of her which is actually an improvement compared to yesterday. Patient denied lung auscultation and other exams. ROS N/A. Physical Exam Physical Exam: CONSTITUTIONAL: WNWD, vitals as above, confused, guarded to exam EYES: normal conjunctivae, no scleral icterus ENT: external ear and nose normal RESPIRATORY: N/A patient not cooperative CARDIOVASCULAR: Patient not cooperative, no JVD, no peripheral edema GASTROINTESTINAL: N/A patient not cooperative MUSCULOSKELETAL: appears to move all extremities equally but is not able to cooperate with an exam. Head is normocephalic and atraumatic SKIN: warm and dry, Stage IV sacral wound-wound vac in place, PICC in RUE NEUROLOGIC: no gross focal deficit, however, this cannot be examined as she is not following instructions. Did not talk. PSYCHIATRIC: alert uncooperative and disoriented. Results & Data Results & Data ([facility]) Vital Signs (Past 12 Hours) Vital Signs Temp Pulse Resp BP Pulse Ox 07/12/21 15:41 36.5 C 91 H 17 134/59 L 96 07/12/21 07:06 36.7 C 110 H 17 138/62 94
[2021-07-12] MEDS: QUEtiapine FUMARATE 100 MG TABLET PO SCH (21:00)
[2021-07-12] MEDS: ERTAPENEM SODIUM 1,000 MG in SODIUM CHLORIDE 0.9% 50 ML IV SCH (21:00)
[2021-07-13 06:25] LABS: Hematocrit (blood only) 27.5 % (37-47); Hemoglobin 8.6 g/dL (12.0-16.0); Mean Corpuscular Hemoglobin 29.1 pg (25-34); Mean Corpuscular Hgb Conc 31.3 g/dL (32-36); Mean Corpuscular Volume 92.9 fL (80-100); Mean Platelet Volume 10.8 fL (7.4-10.4); Platelet Count 220 K/uL (130-400); RDW Coefficient of Variation 14.9 % (11.5-14.5); RDW Standard Deviation 49.6 fL (36.4-46.3); Red Blood Count 2.96 M/uL (4.2-5.4); White Blood Count 4.97 K/uL (4.8-10.8)
[2021-07-13 06:50] LABS: BUN Creatinine Ratio 13.8 (10-20); Calcium 8.1 mg/dl (8.5-10.1); Creatinine Clr Calc Pharmacy 65.1 ml/min; Est GFR (African American) 99.8 ml/min; Est GFR (Non-African American) 86.1 ml/min; Magnesium 2.1 mg/dl (1.8-2.4); Potassium 4.4 mmol/L (3.5-5.1)
[2021-07-13 06:54] LABS: Phosphorus 2.7 mg/dl (2.5-4.9)
[2021-07-13] MEDS: ONDANSETRON INJ 2 MG/ML 2 ML VIAL IV SCH ×2 (09:32→16:49)
[2021-07-13] MEDS: ENOXAPARIN INJ 40 MG/0.4 ML SYR SQ SCH (11:01)
[2021-07-13] MEDS: DONEPEZIL HCL 5 MG TAB PO SCH (12:53)
[2021-07-13] MEDS: POT PHOSPHATE MONOBASIC W/ SOD TAB PO SCH (12:53)
[2021-07-13] MEDS: PANTOprazole 40 MG TAB PO SCH ×2 (12:56→13:01)
[2021-07-13 15:05] LABS: Hematocrit (blood only) 29.4 % (37-47); Hemoglobin 9.3 g/dL (12.0-16.0)
--- NOTE | 2021-07-13 20:24 | Discharge Summary ---
Date of Service July 13, 2021 Admission HPI Per Admitting Provider Pt is 75 y/o F with PMH HTN, HLD, CKD III (baseline Cr 1.2), dementia presented to ER with c/o fall. History obtained from family secondary to pt's dementia. Reports was helping pt into bed and she had fall. Has laceration above right eyebrow. Denies LOC. Also report sacral wound for past month. Reports of been putting cream to area. States that area was improving and appeared to be healing however 3 days ago patient accidentally sat on railing on her hospital bed at home and reports that area seemed to open up and had some foul-smelling drainage. Reports for the past week patient has not been eating or drinking well and appears to be more weak. States patient lives at home with granddaughter and her who cares for her. Denies any known vomiting or diarrhea, fever, diaphoresis. States patient is at her baseline mental status. In ER pt afebrile. negative CT Head, and C-spine. Facial laceration was repaired. WBC: 14. CT Abd/pelvis: here is a sacral decubitus ulceration is detailed above with evidence of significant surrounding cellulitis and soft tissue abscess.. There is associated erosive/destructive change involving the lower sacrum and coccyx consistent with osteomyelitis. Pt given cefepime, vancomycin. Being admitted for further evaluation and treatment Admission Exam Per Admitting Provider General: no distress acute distress, elderly female Head: normocephalic, face: Repaired laceration right eyebrow with Dermabond, Steri-Strips Eyes: PERRL, EOM's appear intact, difficult to fully assess secondary to patient's cooperation, conjunctiva non-injected, anicteric ENT: normal inspection external ears, nose, mucous membranes mildly dry Neck: supple, trachea midline Lungs: Poor inspiratory effort, appear clear, no respiratory distress CV: RRR, no pretibial edema Abd: normal BS, soft, non-tender Ext: no cyanosis, no calf tenderness Neuro: Alert, not oriented Skin: warm, dry; buttocks: + open Deep decubitus ulcer, + foul-smelling Principal Diagnosis sacral osteomyelitis Severe Protein-calorie malnutrition Pelvic mass Discharge Exam CONSTITUTIONAL: WNWD, vitals as above, confused, guarded to exam EYES: normal conjunctivae, no scleral icterus ENT: external ear and nose normal RESPIRATORY: N/A patient not cooperative CARDIOVASCULAR: Patient not cooperative, no JVD, no peripheral edema GASTROINTESTINAL: N/A patient not cooperative MUSCULOSKELETAL: appears to move all extremities equally but is not able to/? does not want to cooperate with exam. Head is normocephalic and atraumatic SKIN: warm and dry, Stage IV sacral wound-wound vac in place, PICC in RUE NEUROLOGIC: no gross focal deficit, however, this cannot be examined as she is not following instructions. Talked minimally. PSYCHIATRIC: alert uncooperative and disoriented. Discharge Data Allergies Allergy/AdvReac Type Severity Reaction Status Date / Time No Known Allergies Allergy Unverified 07/01/21 17:08 Consultations 07/01/21 22:39 ED Decision to Admit Stat 07/02/21 02:10 Consult General Surgery Routine 07/03/21 08:33 Consult Infectious Diseases Routine 07/06/21 08:35 Consult Palliative Care Routine 07/07/21 13:05 Consult Gynecology Routine 07/08/21 14:49 Consult Gastroenterology Routine Procedures Performed Operation Date: 07/02/21 10:35 Actual Procedures p Excisional Debridement of Sacral Ulcer down to bone [id number](Not Applicable) - Devon Daniels, Ordered Studies 07/01/21 16:05 CT cervical spine wo con Stat CT head/brain wo con Stat 07/01/21 17:46 CT abd pelvis IV con only Stat 07/02/21 08:00 US pelvic complete Routine Hospital Course (1) Sacral osteomyelitis: (2) Protein-calorie malnutrition, severe: (3) Physical deconditioning: #. Decubital ulcer #. Sepsis #. Sacral osteomyelitis Sepsis secondary to infected stage IV sacral decubitus wound/abscess/osteomyelitis Has been on intravenous Zosyn and daptomycin Status post excisional debridement of sacral ulcer down to bone 8 cm x 4 cm cont wound care per [facility]-wound vac placed on 07/07-this was dislodging 2/2 urinary incontinence. Continue with Quiñones catheter. Change Quiñones catheter every 2 weeks. Have Reassess her weekly for need of Quiñones catheter to aid with wound healing. Discussed with ID-total of 6 weeks of therapy with daily ertapenem PICC placed. Patient's daughter updated on need for weekly follow-up of labs [CBC, CMP], follow-up with the PCP/orthopedic or infectious disease doctor for reassessment of her osteomyelitis treatment. #. Protein-calorie malnutrition, severe #. Fall - high risk d/t deconditioning 2/2 failure to thrive. Accepting only small sips/bits of food. Patient will need artificial hydration and nutrition to meet her needs, and she has shown a consistent decline in the past week. Considered PEG tube with GI, however, this would not be able to be placed endoscopically because of the anatomy. If feeding tube was desired by family, this would be placed via surgery or IR. General surgeon at [facility] has declined to place. Multiple unsuccessful attempts at NG tube placement. Will need definitive placement of artificial feeding method in place prior to discharge to rehab unless she is feeding well. Possibility of transfer to tertiary care if family desires PEG tube has been discussed. Family declined PEG tube placement for now. #. Transaminitis: resolved. Follow-up as outpatient. #. Pelvic mass: Large cystic lesion attached to the right ovary without septation. [employer] recommends CA-125 now (normal) and close follow-up in their office. #. Other chronic medical conditions: Hypertension, CKD, dementia, physical deconditioning Blood pressure at goal, creatinine within normal limits, patient likely in end stage dementia Patient going to SNF. #. DVT prophylaxis: [facility] 07/11 call with daughter for possible transfer to [place] as a follow-up for earlier discussion regarding PEG tube placement for her feeding her daughter states that she is eating/drinking at her baseline in front of family members, hence they are coming in during her mealtime to help her feed. Because she is eating in front of them, they do not want PEG tube now and expressed interest to follow-up in the custodial as well to help her with feeding. She was aware of earlier discussion regarding PEG tube and GI not being able to put PEG tube while in hospital/surgery declining to put PEG tube in her. Full Code Patient discharged to SNF, following instructions were communicated to the patient's family: As instructed over the phone [to daughter], have her reevaluated/reassessed by her primary care physician within 1 week's time of discharge. Due to position of her osteomyelitis, she will currently go on Quiñones catheter to aid with healing of the wound, replaced Quiñones catheter every 2-week. Have doctor Reevaluate for continuation of Quiñones catheter every week. She is on IV medication via PICC line for prolonged duration, she will need weekly CBCs and CMP. Have the results forwarded to the PCP. Assist the patient with feeding as appropriate. Regarding her malnutrition, we had extensive discussion for the possibility of PEG tube placement while in hospital, if family decides to put PEG tube in future, will need to contact surgery as an outpatient or go to tertiary [facility] as GI/surgery were unable/reluctant to put the PEG tube in hospital in the situation if PEG tube were needed. Maintain follow-up with the wound care center upon discharge. Maintain follow-up with gynecology For last cystic lesion attached to the right ovary as an outpatient. Follow-up with primary care doctor/bone doctor for reevaluation of the osteomyelitis towards the completion of IV antibiotic to get opinion on further treatment/stopping of treatment. Total Time Total Time Spent Total Time Spent (In Minutes): 45 Discharge Plan Discharge Items Patient Disposition: Transfer [facility] Fac Reason For Visit: SEPSIS Discharge Diagnosis: sacral osteomyelitis Severe Protein-calorie malnutrition Pelvic mass Condition on Discharge: Good Activity: Resume your previous activity Non-emergency contact: Primary Care Provider Call non-emergency contact if: you have any medication questions and your symptoms worsen Follow-up/Referrals: Nagi Boston MD [Primary Care Provider] - Dietitian Info: Diet texture: Pureed Diet: Regular and Other - See Diet Comment Diet Comment: can feed regular diet, pureed texture to help with swallow. Addtl Attending Provider Instructions: Please follow up in the wound care center upon discharge. Additional instructions: As instructed over the phone [to daughter], have her reevaluated/reassessed by her primary care physician within 1 week's time of discharge. Due to position of her osteomyelitis, she will currently go on Quiñones catheter to aid with healing of the wound, replaced Quiñones catheter every 2-week. Have doctor Reevaluate for continuation of Quiñones catheter every week. She is on IV medication via PICC line for prolonged duration, she will need weekly CBCs and CMP. Have the results forwarded to the PCP. Assist the patient with feeding as appropriate. Regarding her malnutrition, we had extensive discussion for the possibility of PEG tube placement while in hospital, if family decides to put PEG tube in future, will need to contact surgery as an outpatient or go to tertiary [facility] as GI/surgery were unable/reluctant to put the PEG tube in hospital in the situation if PEG tube were needed. Maintain follow-up with the wound care center upon discharge. Maintain follow-up with gynecology For last cystic lesion attached to the right ovary as an outpatient. Follow-up with primary care doctor/bone doctor for reevaluation of the osteomyelitis towards the completion of IV antibiotic to get opinion on further treatment/stopping of treatment. Pending Studies at Discharge: No Stand-Alone Forms: My [facility] Skilled Items Patient informed of condition?: Yes DNR: No Discharge Level of Care: Skilled Communicable Disease: No Discharge Prognosis: Stable Lines: PICC Urinary Catheter: Yes Medications and DC Order Prescriptions: New pantoprazole 40 mg Tablet,Delayed Release (Dr/Ec) 40 mg PO QAM 30 Days Qty: 30 RF: 0 multivitamin with folic acid [Daily-Eva (with folic acid)] 400 mcg Tablet 1 tab PO QAM 30 Days Qty: 30 RF: 0 ertapenem [Invanz] 1 gram recon soln 1 g IV DAILY 38 Days Qty: 38 RF: 0 Continued donepezil 5 mg tablet 5 mg PO DAILY RF: 0 tramadol 50 mg tablet 50 - 100 mg PO Q6H PRN (Reason: Severe Pain (Scale Score 7-10)) RF: 0 quetiapine 100 mg tablet 100 mg PO HS RF: 0 lorazepam 0.5 mg tablet 0.5 mg PO TID PRN (Reason: Agitation) RF: 0 [id number] Drops,Suspension 4 drp otic (ear) TID RF: 0 acetaminophen [Tylenol Arthritis Pain] 650 mg Tablet Extended Release 650 mg PO Q4H PRN (Reason: Pain) RF: 0 Discharge Orders: Discharge Order (Routine); Ordered 07/13/21 Ordered By: Radha Zaidi/Other Patient Handouts: A1C Admission Data Admit Date/Time: 07/01/21 23:58 Attending Provider: Radha Kenyon Admit Provider: Timbo Birch Primary Care Provider: Nagi Boston Other Providers: Timbo Birch ; Wilfrido Rodriguez ; Rock Han ; Asa Rowley ; Derek Shea Jr ; Herson Rivera ; Camron Martinez ; Gloria Ashley ; Devon Daniels ; Delvin Singh ; Marcos Rowell ; Ronald Jay ; Ulysses Duke I. ; Berry Harper II ; Anastasiia Mc ; Jamie Clayton ; Raven Varela ; [place] ; Francisco Short ; [facility] ; [facility], ; Carisa Braga Other Interventions: Discharge Summary Assessment (RN) Last Done: 07/13/21 17:37
== END 2021-07-13 18:43 | DRG 853 ==
LOC: ED 15:59 → 2W 23:58 → SUATTDRO 23:58 → 2W 07-02 01:28 → 3W 07-07 23:43

== ENCOUNTER 2022-02-27 12:59 | Inpatient (IN) ==
[2022-02-27] MEDS ORDERED: SODIUM CHLORIDE 0.9% 1000ML 500 ML IV ONE (13:09)
[2022-02-27] MEDS ORDERED: SODIUM CHLORIDE 0.9% 1000ML 1,000 ML IV SCH (13:15)
[2022-02-27] MEDS ORDERED: VANCOMYCIN HCL 1,000 MG/270 ML BAG IV STA (13:29)
[2022-02-27] MEDS ORDERED: VANCOMYCIN CONSULT ACTIVE PRN (13:29)
[2022-02-27] MEDS ORDERED: CEFEPIME 2,000 MG/20 ML VIAL IV STA (13:29)
--- NOTE | 2022-02-27 13:29 | XRay Report ---
XR chest 1V portable HISTORY: SEPSIS COMPARISON: Chest 1121. FINDINGS: No pneumothorax. The heart is normal in size. There is a large hiatus hernia, unchanged. Em physema. Small patchy densities within the right midlung zone. There is also dense consolidation with in the left mid to lower lung zone which is new from the prior study. Therefore, this likely represen ts a pneumonia. Prior cholecystectomy. No evidence for pulmonary edema. The bones are osteopenic. Tra ce left pleural effusion. IMPRESSION: 1. Interval development of consolidative airspace opacity within the left mid to lower lung zone with a few small patchy airspace opacities within the right midlung zone. This likely represents a pneumo janae. 1-2 month chest x-ray follow-up recommended to ensure resolution. 2. Large hiatus hernia, unchanged. 3. Trace left pleural effusion. ACT 112: Negative or not required by law. Electronically signed by: Yony Royal M.D. 02/27/2022 1:28 PM
[2022-02-27 13:36] LABS: Eosinophils # (auto) 0.01 K/uL (0-0.5); Eosinophils % (auto) 0.1 %; Hemoglobin 10.9 g/dL (12.0-16.0); Immature Granulocytes # (auto) 0.02 K/uL (0.00-0.02); Immature Granulocytes % (auto) 0.2 %; Lymphocytes # (auto) 1.57 K/uL (1.2-3.4); Lymphocytes % (auto) 19.5 %; Mean Corpuscular Hemoglobin 29.2 pg (25-34); Mean Corpuscular Hgb Conc 30.3 g/dL (32-36); Mean Corpuscular Volume 96.5 fL (80-100); Mean Platelet Volume 13.6 fL (7.4-10.4); Monocytes # (auto) 0.38 K/uL (0.11-0.59); Monocytes % (auto) 4.7 %; Neutrophils # (auto) 6.06 K/uL (1.4-6.5); Neutrophils % (auto) 75.5 %; Platelet Count 219 K/uL (130-400); RDW Coefficient of Variation 19.5 % (11.5-14.5); RDW Standard Deviation 68.4 fL (36.4-46.3); Red Blood Count 3.73 M/uL (4.2-5.4); White Blood Count 8.04 K/uL (4.8-10.8)
--- NOTE | 2022-02-27 13:41 | Emergency Department Note ---
Impression & Plan Left lower lobe pneumonia, Hypoxia, Acute hypotension, Sacral decubitus ulcer, Decubitus ulcer of left ankle, Exposed orthopaedic hardware, Sepsis ED Provider Note INFORMANT: Patient ED PROVIDER(S): Norberto Christopher MD CHIEF COMPLAINT: Respiratory distress PLAN: Disposition: Admitted Condition: Guarded Outpatient prescription management: none Referral: None MEDICAL DECISION MAKING: Presented with respiratory distress. She did well when she was transitioned over to BiPAP and her hypoxia resolved. X-ray imaging was performed and was concerning for left-sided pneumonia. Given the hypoxia, low body temperature, and pneumonia there was concerns for sepsis. The patient had unremarkable CBC but left shift on differential. She had an elevated lactate and pro calcitonin. She did receive 30 mL/kg of IV normal saline. Patient was given broad-spectrum antibiotics with cefepime, vancomycin, and metronidazole. Discussed with ED pharmacist. The patient did well with the fluid resuscitation. She had significant hypernatremia noted. She looked dehydrated on her chemistries as well. Troponin was minimally elevated which I suspect is stress response from all of this current issue. Fire testing was performed and was negative. Urinalysis did raise a concern for UTI. I did discuss her findings with her grandson in law who is her caregiver. He noted that fluids, antibiotics, medications and oxygen support was okay with their wishes. He did note that ventilatory support was not. At this point the patient does not require intubation. She is improving. Repeat lactate was improved. Hypotension resolved. Consultation was made with the [facility] service. The patient was evaluated in the ER and admitted for further management. Triage Nursing notes reviewed and agree them. Vital Signs: reviewed and remarkable for hypoxia. Of note the patient's 1 set of vital signs read an O2 saturation of 6. Her oxygen saturation at that time was 96%. Differential diagnosis: Infection, hypoglycemia, electrolyte abnormalities, overdose, toxicologic, cardiac sources, intracerebral event, neurologic, trauma, as well as other pathologies. Diagnostics interpreted by me: ECG: Twelve-lead ECG reveals sinus tachycardia at 106 bpm. Poor baseline data. No ST elevation or depression. Nonspecific ST. Cardiac Monitoring: Cardiac monitoring ordered by me: The patient was placed on continuous cardiac monitoring and observed. It revealed a normal sinus rhythm at 94 beats per minute without ectopy or evidence of dysrhythmia. Imaging studies: X-ray consistent with large left-sided pneumonia. I refer you to the EMR for further details. HPI: The patient is a 76year old female who presents to the Emergency Room with respiratory difficulty. EMS was summoned this morning after the patient was coughing and there was some concerns about possible aspiration. The patient had already finished eating oatmeal. The grandson in law states that he is the patient's caregiver. Patient's granddaughter is paraplegic. Patient lives with them. No other family helps. Granddaughter is power of associate attorney. Grandhuyen ramirez notes that she had a cold about a month ago and then that seemed to get better. Her appetite, respiratory status, and mental status waxes and wanes. Patient is bedbound. She has chronic decubiti that is followed by the wound center and pending orthopedic appointments. The patient also has a chronic Quiñones and he notes that has been leaking and not doing well over the last 2 weeks. Her cough seemed to worsen over the last week and a half. Her condition deteriorated. Due to the constellation of symptoms and worsening status EMS was summoned this morning. They noted her O2 saturations were between 50 and 70%. She was mildly tachycardic. They tried to start CPAP to assist. He history is limited secondary to patient's mental status and acuity. ROS: Unobtainable secondary to medical acuity and mental status. PAST MEDICAL HISTORY:See Below , dementia, CKD, hypertension PAST SURGICAL HISTORY:See Below, bilateral knee replacement FAMILY HISTORY:See Below SOCIAL HISTORY:See Below, lives with family HOME MEDICATIONS:See Below ALLERGIES:See Below VITALS:See Below PHYSICAL EXAMINATION: GENERAL: Awake but semialert, dyspneic appearing, in mild distress, disheveled, negative soiled with stool. HENT: Normocephalic, atraumatic. Oropharynx dry mucous membranes. EYES: Normal conjunctiva. Sclera non-icteric. PERRLA. NECK: Inspection normal. Non-tender. Supple. No nuchal rigidity. FROM. No ma sses. RESPIRATORY: Moderate left-sided rales. Increased respiratory effort. CARDIAC: Tachycardic rate. Normal rhythm. No murmurs. Is cool to the touch. No JVD. GI: Soft, non-distended. No tenderness to palpation. No rebound or guarding. No masses. RECTAL: Large sacral decubiti present. Dried stool about. MUSCULOSKELETAL: Atraumatic. Chest examination reveals no tenderness. The back is symmetrical on inspection without obvious abnormality. There is no CVA tenderness to palpation. No joint edema. LOWER EXTREMITIES: Calves are equal size bilaterally and non-tender. No edema. No discoloration. NEURO: Altered sensorium. Moving arms and legs spontaneously. Does localize to pain. Does look and respond to voice. Speech is unintelligible. SKIN: No rash or jaundice noted. Norberto Christopher MD Past Med/Surg History Medical History (Updated 02/27/22 @ 18:44 by Norberto Christopher MD) CKD (chronic kidney disease), stage III Dementia History of fracture of left ankle HTN (hypertension) Osteoporosis Surgical History History of bilateral knee replacement History of cataract surgery History of total hip replacement Hx of cholecystectomy Social History (Updated 12/17/21 @ 13:11 by Chelo Mendez RN) Smoking Status: Unknown if ever smoked Hx Alcohol Use: No Hx Substance Use: No Preferred Language: Russian Communication Ability: altered me Visual Impairment: Partially Limited Hearing Ability: Normal Cafeteria Aide Required: No Beliefs That Will Affect Care: None marital status: Current Living Situation: Family Current Living Situation Comment: Lives with grandaughter and grandson in law Feels Safe at Home: Hesitant to Answer Assistive Devices: None Allergies Allergies Allergy/AdvReac Type Severity Reaction Status Date / Time No Known Allergies Allergy Verified 02/27/22 14:50 Home Meds Home Medications Medication Instructions Recorded Confirmed donepezil 5 mg tablet 5 mg PO DAILY 07/18/20 02/27/22 lorazepam 0.5 mg tablet 0.5 mg PO TID PRN 07/18/20 02/27/22 tramadol 50 mg tablet 50 mg PO Q6H PRN 07/18/20 02/27/22 quetiapine 100 mg tablet 100 mg PO HS tab 12/17/21 02/27/22 omeprazole 20 mg capsule,delayed 20 mg PO DAILYBB 02/27/22 02/27/22 release quetiapine 25 mg tablet 25 mg PO HS 02/27/22 02/27/22 tramadol 50 mg tablet 100 mg PO Q6 PRN 02/27/22 02/27/22 Results & Data (ED) Vital Signs Vital Signs - 24 hr 02/27/22 13:05 02/27/22 13:09 02/27/22 13:16 Temperature Temperature Source Pulse Rate 124 H 109 H 120 H Pulse Rate [Apical] Pulse Rate from SpO2 Sensor Respiratory Rate 35 H 28 H 38 H Respiratory Effort / Characteristics Non-Labored Spontaneous Spontaneous Respiratory Depth Normal Normal Respiratory Pattern Regular Regular Blood Pressure 95/64 L Blood Pressure [Left Arm] Blood Pressure Mean 74 Blood Pressure Mean [Left Arm] Blood Pressure Position Blood Pressure Position [Left Arm] Pulse Oximetry 99 96 Oxygen Delivery Method BiPAP Oxygen Flow Rate Fraction of Inspired Oxygen 100 100 SaO2/FiO2 Ratio 99 Sepsis Recent Fever Within 48 Hours Sepsis New/Unexplained Change in Mental Status Sepsis Action Taken by Nursing 02/27/22 13:23 02/27/22 13:30 02/27/22 13:58 Temperature Temperature Source Pulse Rate 113 H 118 H 107 H Pulse Rate [Apical] Pulse Rate from SpO2 Sensor 118 H 107 H Respiratory Rate 28 H 40 H 27 H Respiratory Effort / Characteristics Non-Labored Spontaneous Respiratory Depth Normal Respiratory Pattern Regular Blood Pressure 95/64 L 113/68 Blood Pressure [Left Arm] Blood Pressure Mean 74 83 Blood Pressure Mean [Left Arm] Blood Pressure Position Lying Blood Pressure Position [Left Arm] Pulse Oximetry 99 97 98 Oxygen Delivery Method BiPAP Oxygen Flow Rate Fraction of Inspired Oxygen 100 SaO2/FiO2 Ratio 99 Sepsis Recent Fever Within 48 Hours Yes Sepsis New/Unexplained Change in Mental Status Yes Sepsis Action Taken by Nursing Physician Notified 02/27/22 14:00 02/27/22 14:30 02/27/22 14:31 Temperature Temperature Source Pulse Rate 107 H 116 H Pulse Rate [Apical] Pulse Rate from SpO2 Sensor 107 H 102 H Respiratory Rate 24 28 H Respiratory Effort / Characteristics Non-Labored Spontaneous Respiratory Depth Normal Respiratory Pattern Tachypnea Blood Pressure 114/66 119/75 Blood Pressure [Left Arm] Blood Pressure Mean 82 89 Blood Pressure Mean [Left Arm] Blood Pressure Position Blood Pressure Position [Left Arm] Pulse Oximetry 98 100 99 Oxygen Delivery Method BiPAP Oxygen Flow Rate Fraction of Inspired Oxygen 100 SaO2/FiO2 Ratio Sepsis Recent Fever Within 48 Hours Sepsis New/Unexplained Change in Mental Status Sepsis Action Taken by Nursing 02/27/22 14:48 02/27/22 15:00 02/27/22 15:30 Temperature 35.4 C L Temperature Source Rectal Pulse Rate 103 H 94 H Pulse Rate [Apical] 105 H Pulse Rate from SpO2 Sensor 104 H 96 H Respiratory Rate 22 27 H 24 Respiratory Effort / Characteristics Non-Labored Spontaneous Non-Labored Spontaneous Respiratory Depth Normal Respiratory Pattern Tachypnea Blood Pressure 104/69 109/61 Blood Pressure [Left Arm] 119/75 Blood Pressure Mean 80 77 Blood Pressure Mean [Left Arm] 89 Blood Pressure Position Blood Pressure Position [Left Arm] Lying Pulse Oximetry 100 100 98 Oxygen Delivery Method BiPAP BiPAP Oxymask Oxygen Flow Rate 5 Fraction of Inspired Oxygen 100 SaO2/FiO2 Ratio 100 Sepsis Recent Fever Within 48 Hours Sepsis New/Unexplained Change in Mental Status Sepsis Action Taken by Nursing Laboratory Data Result diagrams: 02/27/22 13:21 02/27/22 13:21 Lab Results 02/27/22 02/27/22 02/27/22 Range/Units 13:12 13:21 13:21 WBC 8.04 (4.8-10.8) K/uL RBC 3.73 L (4.2-5.4) M/uL Hgb 10.9 L (12.0-16.0) g/dL Hct 36.0 L (37-47) % MCV 96.5 (80-100) fL MCH 29.2 (25-34) pg MCHC 30.3 L (32-36) g/dL RDW Std Deviation 68.4 H (36.4-46.3) fL RDW Coeff of Heydi 19.5 H (11.5-14.5) % Plt Count 219 (130-400) K/uL MPV 13.6 H (7.4-10.4) fL Immature Gran % (Auto) 0.2 % Neut % (Auto) 75.5 % Lymph % (Auto) 19.5 % [place] % (Auto) 4.7 % Eos % (Auto) 0.1 % Baso % (Auto) 0.0 % Neut # (Auto) 6.06 (1.4-6.5) K/uL Lymph # (Auto) 1.57 (1.2-3.4) K/uL [place] # (Auto) 0.38 (0.11-0.59) K/uL Eos # (Auto) 0.01 (0-0.5) K/uL Baso # (Auto) 0.00 (0-0.2) K/uL Immature Gran # (Auto) 0.02 (0.00-0.02) K/uL PT 10.3 (9.0-12.0) Seconds INR 1.0 (0.9-1.1) APTT 25.2 (21.0-31.0) Seconds PTT Ratio 0.9 Sodium (136-145) mmol/L Potassium (3.5-5.1) mmol/L Chloride (98-107) mmol/L Carbon Dioxide (21-32) mmol/L Anion Gap (3-11) BUN (6-23) mg/dl Creatinine (0.6-1.2) mg/dl Est Cr Clr Drug Dosing Est GFR ( Amer) ml/min Est GFR (Non-Af Amer) ml/min BUN/Creatinine Ratio (10-20) Glucose (70-99(Fasting)) mg/dl Lactate (0.4-2.0) mmol/L Calcium (8.5-10.1) mg/dl Magnesium (1.7-2.4) mg/dl Total Bilirubin (0.2-1.0) mg/dl AST (13-39) U/L ALT (7-52) U/L Alkaline Phosphatase (34-104) U/L Troponin I (0-0.04) ng/ml Total Protein (6.0-8.3) gm/dl Albumin (3.4-5.0) gm/dl Globulin (2.5-4.0) gm/dl Albumin/Globulin Ratio (0.9-2) Procalcitonin (0-0.5) ng/ml Urine Color Urine Appearance (Clear) Urine pH (4.5-7.5) Ur Specific [place] (1.000-1.030) Urine Protein (Negative) Urine Glucose (UA) (Negative) Urine Ketones (Negative) Urine Blood (Negative) Urine Nitrite (Negative) Urine Bilirubin (Negative) Urine Urobilinogen (Negative) Ur Leukocyte Esterase (Negative) Urine RBC (0-4) /hpf Urine WBC (0-5) /hpf Ur Epithelial Cells (0-5) /lpf Urine Bacteria (Negative) Hyaline Casts (0-5) /lpf Adenovirus (PCR) Not Detected (NotDetected) B. pertussis DNA (PCR) Not Detected (NotDetected) B.parapertussis DNA PCR Not Detected (NotDetected) C. pneumoniae DNA (PCR) Not Detected (NotDetected) Coronavirus OC43 (PCR) Not Detected (NotDetected) Coronavirus HKU1 (PCR) Not Detected (NotDetected) Coronavirus 229E (PCR) Not Detected (NotDetected) SARS-CoV-2 (PCR) Not Detected (NotDetected) Coronavirus NL63 (PCR) Not Detected (NotDetected) Human Metapneumovir PCR Not Detected (NotDetected) Influenza Type A (PCR) Not Detected (NotDetected) Influenza Type B (PCR) Not Detected (NotDetected) M. pneumoniae (PCR) Not Detected (NotDetected) Parainfluenza 1 (PCR) Not Detected (NotDetected) Parainfluenza 2 (PCR) Not Detected (NotDetected) Parainfluenza 3 (PCR) Not Detected (NotDetected) Parainfluenza 4 (PCR) Not Detected (NotDetected) RSV (PCR) Not Detected (NotDetected) Entero/Rhino (PCR) Not Detected (NotDetected) 02/27/22 02/27/22 02/27/22 Range/Units 13:21 13:21 13:25 WBC (4.8-10.8) K/uL RBC (4.2-5.4) M/uL Hgb (12.0-16.0) g/dL Hct (37-47) % MCV (80-100) fL MCH (25-34) pg MCHC (32-36) g/dL RDW Std Deviation (36.4-46.3) fL RDW Coeff of Heydi (11.5-14.5) % Plt Count (130-400) K/uL MPV (7.4-10.4) fL Immature Gran % (Auto) % Neut % (Auto) % Lymph % (Auto) % [place] % (Auto) % Eos % (Auto) % Baso % (Auto) % Neut # (Auto) (1.4-6.5) K/uL Lymph # (Auto) (1.2-3.4) K/uL [place] # (Auto) (0.11-0.59) K/uL Eos # (Auto) (0-0.5) K/uL Baso # (Auto) (0-0.2) K/uL Immature Gran # (Auto) (0.00-0.02) K/uL PT (9.0-12.0) Seconds INR (0.9-1.1) APTT (21.0-31.0) Seconds PTT Ratio Sodium 162 H* (136-145) mmol/L Potassium 4.3 (3.5-5.1) mmol/L Chloride 127 H (98-107) mmol/L Carbon Dioxide 25 (21-32) mmol/L Anion Gap 10 (3-11) BUN 73 H (6-23) mg/dl Creatinine 1.39 H (0.6-1.2) mg/dl Est Cr Clr Drug Dosing Not Reportable Est GFR ( Amer) 42.0 ml/min Est GFR (Non-Af Amer) 36.2 ml/min BUN/Creatinine Ratio 52.5 H (10-20) Glucose 191 H (70-99(Fasting)) mg/dl Lactate 3.5 H* (0.4-2.0) mmol/L Calcium 9.4 (8.5-10.1) mg/dl Magnesium 2.8 H (1.7-2.4) mg/dl Total Bilirubin 0.5 (0.2-1.0) mg/dl AST 92 H (13-39) U/L ALT 80 H (7-52) U/L Alkaline Phosphatase 235 H (34-104) U/L Troponin I 0.08 H* (0-0.04) ng/ml Total Protein 6.9 (6.0-8.3) gm/dl Albumin 2.8 L (3.4-5.0) gm/dl Globulin 4.1 H (2.5-4.0) gm/dl Albumin/Globulin Ratio 0.7 L (0.9-2) Procalcitonin 0.93 H (0-0.5) ng/ml Urine Color Urine Appearance (Clear) Urine pH (4.5-7.5) Ur Specific [place] (1.000-1.030) Urine Protein (Negative) Urine Glucose (UA) (Negative) Urine Ketones (Negative) Urine Blood (Negative) Urine Nitrite (Negative) Urine Bilirubin (Negative) Urine Urobilinogen (Negative) Ur Leukocyte Esterase (Negative) Urine RBC (0-4) /hpf Urine WBC (0-5) /hpf Ur Epithelial Cells (0-5) /lpf Urine Bacteria (Negative) Hyaline Casts (0-5) /lpf Adenovirus (PCR) (NotDetected) B. pertussis DNA (PCR) (NotDetected) B.parapertussis DNA PCR (NotDetected) C. pneumoniae DNA (PCR) (NotDetected) Coronavirus OC43 (PCR) (NotDetected) Coronavirus HKU1 (PCR) (NotDetected) Coronavirus 229E (PCR) (NotDetected) SARS-CoV-2 (PCR) (NotDetected) Coronavirus NL63 (PCR) (NotDetected) Human Metapneumovir PCR (NotDetected) Influenza Type A (PCR) (NotDetected) Influenza Type B (PCR) (NotDetected) M. pneumoniae (PCR) (NotDetected) Parainfluenza 1 (PCR) (NotDetected) Parainfluenza 2 (PCR) (NotDetected) Parainfluenza 3 (PCR) (NotDetected) Parainfluenza 4 (PCR) (NotDetected) RSV (PCR) (NotDetected) Entero/Rhino (PCR) (NotDetected) 02/27/22 02/27/22 Range/Units 14:46 15:09 WBC (4.8-10.8) K/uL RBC (4.2-5.4) M/uL Hgb (12.0-16.0) g/dL Hct (37-47) % MCV (80-100) fL MCH (25-34) pg MCHC (32-36) g/dL RDW Std Deviation (36.4-46.3) fL RDW Coeff of Heydi (11.5-14.5) % Plt Count (130-400) K/uL MPV (7.4-10.4) fL Immature Gran % (Auto) % Neut % (Auto) % Lymph % (Auto) % [place] % (Auto) % Eos % (Auto) % Baso % (Auto) % Neut # (Auto) (1.4-6.5) K/uL Lymph # (Auto) (1.2-3.4) K/uL [place] # (Auto) (0.11-0.59) K/uL Eos # (Auto) (0-0.5) K/uL Baso # (Auto) (0-0.2) K/uL Immature Gran # (Auto) (0.00-0.02) K/uL PT (9.0-12.0) Seconds INR (0.9-1.1) APTT (21.0-31.0) Seconds PTT Ratio Sodium (136-145) mmol/L Potassium (3.5-5.1) mmol/L Chloride (98-107) mmol/L Carbon Dioxide (21-32) mmol/L Anion Gap (3-11) BUN (6-23) mg/dl Creatinine (0.6-1.2) mg/dl Est Cr Clr Drug Dosing Est GFR ( Amer) ml/min Est GFR (Non-Af Amer) ml/min BUN/Creatinine Ratio (10-20) Glucose (70-99(Fasting)) mg/dl Lactate 2.7 H* (0.4-2.0) mmol/L Calcium (8.5-10.1) mg/dl Magnesium (1.7-2.4) mg/dl Total Bilirubin (0.2-1.0) mg/dl AST (13-39) U/L ALT (7-52) U/L Alkaline Phosphatase (34-104) U/L Troponin I (0-0.04) ng/ml Total Protein (6.0-8.3) gm/dl Albumin (3.4-5.0) gm/dl Globulin (2.5-4.0) gm/dl Albumin/Globulin Ratio (0.9-2) Procalcitonin (0-0.5) ng/ml Urine Color Yellow Urine Appearance Slightly Cloudy (Clear) Urine pH 6.0 (4.5-7.5) Ur Specific [place] 1.020 (1.000-1.030) Urine Protein 2+ H (Negative) Urine Glucose (UA) Negative (Negative) Urine Ketones Negative (Negative) Urine Blood 3+ H (Negative) Urine Nitrite Negative (Negative) Urine Bilirubin Negative (Negative) Urine Urobilinogen Negative (Negative) Ur Leukocyte Esterase 1+ H (Negative) Urine RBC 10-30 H (0-4) /hpf Urine WBC 10-30 H (0-5) /hpf Ur Epithelial Cells 5-10 H (0-5) /lpf Urine Bacteria 1+ H (Negative) Hyaline Casts 0-5 (0-5) /lpf Adenovirus (PCR) (NotDetected) B. pertussis DNA (PCR) (NotDetected) B.parapertussis DNA PCR (NotDetected) C. pneumoniae DNA (PCR) (NotDetected) Coronavirus OC43 (PCR) (NotDetected) Coronavirus HKU1 (PCR) (NotDetected) Coronavirus 229E (PCR) (NotDetected) SARS-CoV-2 (PCR) (NotDetected) Coronavirus NL63 (PCR) (NotDetected) Human Metapneumovir PCR (NotDetected) Influenza Type A (PCR) (NotDetected) Influenza Type B (PCR) (NotDetected) M. pneumoniae (PCR) (NotDetected) Parainfluenza 1 (PCR) (NotDetected) Parainfluenza 2 (PCR) (NotDetected) Parainfluenza 3 (PCR) (NotDetected) Parainfluenza 4 (PCR) (NotDetected) RSV (PCR) (NotDetected) Entero/Rhino (PCR) (NotDetected) Administered Medications Dextrose/Sodium Chloride (D5w And 1/2nss) 1,000 mls @ 75 mls/hr IV .[id number] [facility] Stop: 03/29/22 17:33 Last Admin: 02/27/22 18:29 Dose: 75 mls/hr Documented by: [id number] Miscellaneous (Patient's Height And/Or Weight Needed) 1 ea N/A Q1H [facility] Stop: 03/29/22 18:14 Last Admin: 02/27/22 18:30 Dose: 1 ea Documented by: [id number] Discontinued Medications Sodium Chloride (Nss 1000ml) 1,000 mls @ 150 mls/hr IV .[id number] [facility] Stop: 03/29/22 13:14 Last Admin: 02/27/22 14:07 Dose: Not Given Documented by: [id number] Sodium Chloride (Nss 1000ml) 500 mls @ 999 mls/hr IV .Q31M ONE Stop: 02/27/22 13:39 Last Infusion: 02/27/22 15:01 Dose: 0 mls/hr Documented by: [id number] Admin: 02/27/22 13:14 Dose: 999 mls/hr Documented by: [id number] Cefepime HCl (Maxipime) 2,000 mg in 20 mls @ 5 mls/min IV NOW STA; Protocol Stop: 02/27/22 13:32 Last Admin: 02/27/22 14:07 Dose: 5 mls/min Documented by: [id number] Vancomycin HCl (Vancomycin Hcl) 1,000 mg in 270 mls @ 125 mls/hr IV NOW STA; Protocol Stop: 02/27/22 15:38 Last Infusion: 02/27/22 16:34 Dose: 0 mls/hr Documented by: [id number] Admin: 02/27/22 14:07 Dose: 125 mls/hr Documented by: [id number] Sodium Chloride (Nss 1000ml) 1,000 mls @ 999 mls/hr IV .Q1H1M ONE Stop: 02/27/22 15:02 Last Infusion: 02/27/22 15:00 Dose: 0 mls/hr Documented by: [id number] Admin: 02/27/22 14:07 Dose: 999 mls/hr Documented by: [id number] Metronidazole (Flagyl) 500 mg in 100 mls @ 100 mls/hr IV NOW ONE Stop: 02/27/22 15:29 Last Infusion: 02/27/22 16:09 Dose: 0 mls/hr Documented by: [id number] Admin: 02/27/22 15:07 Dose: 100 mls/hr Documented by: [id number] Imaging Data Radiologist's Impression: Chest X-Ray 02/27/22 13:09 XR chest 1V portable HISTORY: SEPSIS COMPARISON: Chest 1121. FINDINGS: No pneumothorax. The heart is normal in size. There is a large hiatus hernia, unchanged. Emphysema. Small patchy densities within the right midlung zone. There is also dense consolidation within the left mid to lower lung zone which is new from the prior study. Therefore, this likely represents a pneumonia. Prior cholecystectomy. No evidence for pulmonary edema. The bones are osteopenic. Trace left pleural effusion. IMPRESSION: 1. Interval development of consolidative airspace opacity within the left mid to lower lung zone with a few small patchy airspace opacities within the right m idlung zone. This likely represents a pneumonia. 1-2 month chest x-ray follow-up recommended to ensure resolution. 2. Large hiatus hernia, unchanged. 3. Trace left pleural effusion. ACT 112: Negative or not required by law. Electronically signed by: Yony Royal M.D. 02/27/2022 1:28 PM Discharge Plan Visit Data Chief Complaint: Shortness of Breath/Dyspnea ED Provider: Norberto Christopher Discharge Problem: Left lower lobe pneumonia, Hypoxia, Acute hypotension, Sacral decubitus ulcer, Decubitus ulcer of left ankle, Exposed orthopaedic hardware, Sepsis Patient Disposition: Admitted As Inpatient Discharge Instructions Interventions: ED Discharge Assessment Last Done: 02/27/22 16:32
[2022-02-27 13:47] LABS: Partial Thromboplastin Ratio 0.9; Partial Thromboplastin Time 25.2 Seconds (21.0-31.0); Prothrombin Time 10.3 Seconds (9.0-12.0)
[2022-02-27 14:02] LABS: Alanine Aminotransferase 80 U/L (7-52); Albumin Globulin Ratio 0.7 (0.9-2); Albumin Level 2.8 gm/dl (3.4-5.0); Alkaline Phosphatase 235 U/L (34-104); Anion Gap 10 (3-11); Aspartate Aminotransferase 92 U/L (13-39); BUN Creatinine Ratio 52.5 (10-20); Bilirubin,Total 0.5 mg/dl (0.2-1.0); Blood Urea Nitrogen 73 mg/dl (6-23); Calcium 9.4 mg/dl (8.5-10.1); Carbon Dioxide 25 mmol/L (21-32); Chloride 127 mmol/L (98-107); Est GFR (Non-African American) 36.2 ml/min; Globulin 4.1 gm/dl (2.5-4.0); Glucose 191 mg/dl (70-99(Fasting)); Magnesium 2.8 mg/dl (1.7-2.4); Potassium 4.3 mmol/L (3.5-5.1); Sodium 162 mmol/L (136-145); Total Protein 6.9 gm/dl (6.0-8.3); Troponin I 0.08 ng/ml (0-0.04)
[2022-02-27] MEDS ORDERED: SODIUM CHLORIDE 0.9% 1000ML 1,000 ML IV ONE (14:02)
[2022-02-27 14:15] LABS: Adenovirus PCR Not Detected (NotDetected); Bordetella parapertussis PCR Not Detected (NotDetected); Bordetella pertussis PCR Not Detected (NotDetected); Chlamydia pneumoniae PCR Not Detected (NotDetected); Coronavirus 229E PCR Not Detected (NotDetected); Coronavirus CoV-2 (COVID19)PCR Not Detected (NotDetected); Coronavirus HKU1 PCR Not Detected (NotDetected); Coronavirus NL63 PCR Not Detected (NotDetected); Coronavirus OC43PCR Not Detected (NotDetected); Human Metapneumovirus PCR Not Detected (NotDetected); Influenza A PCR Not Detected (NotDetected); Influenza B PCR Not Detected (NotDetected); Mycoplasma pneumoniae PCR Not Detected (NotDetected); Parainfluenza Virus 1 PCR Not Detected (NotDetected); Parainfluenza Virus 2 PCR Not Detected (NotDetected); Parainfluenza Virus 3 PCR Not Detected (NotDetected); Parainfluenza Virus 4 PCR Not Detected (NotDetected); Respiratory Syncytial VirusPCR Not Detected (NotDetected); Rhinovirus/Enterovirus PCR Not Detected (NotDetected)
[2022-02-27] MEDS ORDERED: metroNIDAZOLE 500 MG/100 ML BAG IV ONE (14:30)
--- NOTE | 2022-02-27 14:37 | History & Physical Report ---
Date of Service February 27, 2022 Assessment & Plan (1) Sepsis: (2) Multifocal pneumonia: (3) KATERINA (acute kidney injury): (4) Hypernatremia: Plan: Sepsis with multifocal pneumonia, r/o UTI- H/o choking on food. CXR with pneumonia. Elevated procal and lactate. Meets sepsis criteria with hypothermia, tachycardia and tachypnea, elevated lactated and CXR. Continue empiric vanc/zosyn. Check MRSA nares. Check sputum clx. [employer]INE[employer] evaluation, npo until then. F/u on urine clx results. Wean down on oxygen as tolerated. Hypernatremia- sodium 162, in setting of poor oral intake. Free water deficit of 3.6 L. Given NSS in the ED. Will start on D5 1/2 NS and check q4hrs to avoid overcorrection. Exposed hardware left ankle- Ortho evaluation Sacral decubitus ulcer- present on admission. WOCN eval. Elevated troponin- likely demand ischemia. Trend for completeness KATERINA- baseline of 0.7-0.8. Currently 1.39. Given IVF, recheck in am. Avoid nephrotoxics. Elevated LFTs- mildly elevated, likely in setting of hypoxia and acute infection. Recheck in am. Dementia- currently depressed mental status due to infection. Delirium precautions. DVT prophylaxis- sc heparin Code status- per grandson, she wants to be full code but not too aggressive if she is not going to make it Dispo- PCU. History of Present Illness Chief Complaint: Choking, hypoxia Primary Care Provider: Nagi Boston MD 76 year old female with dementia, bed bound at baseline who presented to the ED from home via EMS for choking and hypoxia. Her grandson is her paid caregiver and provided most of the history due to the condition of the patient. States that she has been worsening over the past 2 weeks with decreased oral intake and decreased mentation. Also had decreased urine output. She had [facility] home visit on Tuesday and her exam was said to be unremarkable. Today, while eating she had choking and EMS was called. Her oxygen saturation was in 77% and was started on bipap. In the ED, she was hypothermic, tachypneic, tachycardic, Placed on shefali hugger, continued on BIPAP and given IVF with antibiotics. Multiple lab abnormalities, CXR with Pnuemonia. Hospitalist service was consulted for admission. Saw and examined patient at bedside in presence of his grandson. States she had sacral decubitus ulcer and exposed left ankle screw for a while now, she completed 2 weeks of antibiotics in Mid November. Orthopedics referral was madex2 but they have not heard since. She was also evaluated by ID in Mid january. Allergies Allergy/AdvReac Type Severity Reaction Status Date / Time No Known Allergies Allergy Verified 02/27/22 14:50 Home Medications Medication Instructions Recorded Confirmed Type donepezil 5 mg tablet 5 mg PO DAILY 07/18/20 02/27/22 History lorazepam 0.5 mg tablet 0.5 mg PO TID PRN 07/18/20 02/27/22 History tramadol 50 mg tablet 50 mg PO Q6H PRN 07/18/20 02/27/22 History quetiapine 100 mg tablet 100 mg PO HS tab 12/17/21 02/27/22 History omeprazole 20 mg capsule,delayed 20 mg PO DAILYBB 02/27/22 02/27/22 History release quetiapine 25 mg tablet 25 mg PO HS 02/27/22 02/27/22 History tramadol 50 mg tablet 100 mg PO Q6 PRN 02/27/22 02/27/22 History Past Med/Surg History Medical History (Updated 02/27/22 @ 16:33 by Roni Fuentes MD) CKD (chronic kidney disease), stage III Dementia History of fracture of left ankle HTN (hypertension) Osteoporosis Surgical History History of bilateral knee replacement History of cataract surgery History of total hip replacement Hx of cholecystectomy Social History (Updated 12/17/21 @ 13:11 by Chelo Mendez RN) Smoking Status: Unknown if ever smoked Hx Alcohol Use: No Hx Substance Use: No Preferred Language: Yakut Communication Ability: altered me Visual Impairment: Partially Limited Hearing Ability: Normal Sugar Controller Required: No Beliefs That Will Affect Care: None marital status: Current Living Situation: Family Current Living Situation Comment: Lives with grandaughter and grandson in law Feels Safe at Home: Hesitant to Answer Assistive Devices: None Physical Exam Physical Exam: General: Sick looking, frail elderly female on bipap, on shefali hugger, not in acute distress HEENT: EOMI, MAHSA, dry Chest: fair breath sounds anteriorly CVS: Tachycardic, normal heart sounds, no murmur Abdomen: Soft, non tender, not distended, normal bowel sounds Sacral decubitus ulcer Neuro: Awake, alert, lethargic, unintelligible speech Extremities: No cyanosis, clubbing or edema. Left ankle with screw visible Results & Data Results & Data ([facility]) Vital Signs (Past 12 Hours) Vital Signs Pulse Resp BP Pulse Ox 02/27/22 14:31 99 02/27/22 13:23 113 H 28 H 95/64 L 99 02/27/22 13:16 120 H 38 H 96 02/27/22 13:09 109 H 28 H 99 Laboratory Results Short CBC 02/27/22 Range/Units 13:21 WBC 8.04 (4.8-10.8) K/uL Hgb 10.9 L (12.0-16.0) g/dL Hct 36.0 L (37-47) % Plt Count 219 (130-400) K/uL BMP 02/27/22 13:21 Sodium 162 H* Potassium 4.3 Chloride 127 H Carbon Dioxide 25 BUN 73 H Creatinine 1.39 H Glucose 191 H Calcium 9.4 Cardiac Enzymes 02/27/22 Range/Units 13:21 Troponin I 0.08 H* (0-0.04) ng/ml Liver Function 02/27/22 Range/Units 13:21 Total Bilirubin 0.5 (0.2-1.0) mg/dl AST 92 H (13-39) U/L ALT 80 H (7-52) U/L Alkaline Phosphatase 235 H (34-104) U/L Albumin 2.8 L (3.4-5.0) gm/dl Urine 02/27/22 Range/Units 14:46 Urine Color Yellow Urine Appearance Slightly Cloudy (Clear) Urine pH 6.0 (4.5-7.5) Ur Specific [place] 1.020 (1.000-1.030) Urine Protein 2+ H (Negative) Urine Glucose (UA) Negative (Negative) Diagnostic Findings Chest X-Ray 02/27/22 13:09 XR chest 1V portable HISTORY: SEPSIS COMPARISON: Chest 1121. FINDINGS: No pneumothorax. The heart is normal in size. There is a large hiatus hernia, unchanged. Emphysema. Small patchy densities within the right midlung zone. There is also dense consolidation within the left mid to lower lung zone which is new from the prior study. Therefore, this likely represents a pneumonia. Prior cholecystectomy. No evidence for pulmonary edema. The bones are osteopenic. Trace left pleural effusion. IMPRESSION: 1. Interval development of consolidative airspace opacity within the left mid to lower lung zone with a few small patchy airspace opacities within the right midlung zone. This likely represents a pneumonia. 1-2 month chest x-ray follow- up recommended to ensure resolution. 2. Large hiatus hernia, unchanged. 3. Trace left pleural effusion. ACT 112: Negative or not required by law. Electronically signed by: Yony Royal M.D. 02/27/2022 1:28 PM
[2022-02-27 15:23] LABS: Appearance Urine Slightly Cloudy (Clear); Bilirubin Urine Negative (Negative); Blood Urine 3+ (Negative); Color Urine Yellow; Glucose Urine UA Negative (Negative); Ketones Urine Negative (Negative); Leukocyte Esterase Urine 1+ (Negative); Nitrite Urine Negative (Negative); Protein Urine 2+ (Negative); Urobilinogen Urine Negative (Negative)
[2022-02-27 15:28] LABS: Bacteria Urine 1+ (Negative); Hyaline Casts Urine 0-5 /lpf (0-5)
[2022-02-27] MEDS ORDERED: PIPERACILL/TAZOBAC CONSULT ACTIVE PRN (17:34)
[2022-02-27] MEDS ORDERED: PATIENT'S HEIGHT AND/OR WEIGHT NEEDED SCH (18:15)
[2022-02-27] MEDS: D5W AND 1/2NSS 1,000 ML IV SCH (18:29)
--- NOTE | 2022-02-27 19:26 | Pharmacy Report ---
Pharmacy Vanc [facility] Short Note - Date of Service February 27, 2022 - Assessment & Plan Assessment 76 year old F receiving vancomycin + pip-tazo for treatment of multifocal pneumonia. Patient presented to the ED from home via EMS for choking and hypoxia. Blood cultures, urine culture, and MRSA nasal swab pending h/o MRSA from coccyx culture (12/17/21), E. faecium from indwelling urinary cath culture - sensitive only to dapto & vanco (11/07/21) KATERINA - RN unable to obtain true height at time of consultation, therefore, height from previous admission was used to calculate renal function Plan Vancomycin * Received 1000 mg IV (~22 mg/kg) in the ED * Will order a random vanc level with AM labs to guide further dosing Zosyn * 3.375 g IV every 8 hours (extended infusion over 4 hours) * Monitor renal function closely per patients eCrCL is borderline for renal dose adjustment to q12h Pharmacy will continue to follow and will adjust dose/frequency as necessary. Thank you.
[2022-02-27] MEDS ORDERED: PIPERACILLIN/TAZOBACTAM 3.375 GM in DEXTROSE 5% 100 ML IV ONE (20:00)
[2022-02-27] MEDS: HEPARIN SOD 5,000 UNIT/0.5 ML VIAL SQ SCH (20:14)
[2022-02-28] MEDS: PIPERACILLIN/TAZOBACTAM 3.375 GM in DEXTROSE 5% 100 ML IV SCH ×3 (01:39→17:09)
[2022-02-28] MEDS: D5W AND 1/2NSS 1,000 ML IV SCH (06:04)
[2022-02-28 06:43] LABS: Eosinophils # (auto) 0.07 K/uL (0-0.5); Eosinophils % (auto) 1.3 %; Hemoglobin 9.1 g/dL (12.0-16.0); Immature Granulocytes # (auto) 0.02 K/uL (0.00-0.02); Immature Granulocytes % (auto) 0.4 %; Lymphocytes # (auto) 0.67 K/uL (1.2-3.4); Lymphocytes % (auto) 12.3 %; Mean Corpuscular Hemoglobin 28.3 pg (25-34); Mean Corpuscular Hgb Conc 29.4 g/dL (32-36); Mean Corpuscular Volume 96.6 fL (80-100); Mean Platelet Volume 13.1 fL (7.4-10.4); Monocytes # (auto) 0.21 K/uL (0.11-0.59); Monocytes % (auto) 3.9 %; Neutrophils # (auto) 4.48 K/uL (1.4-6.5); Neutrophils % (auto) 82.1 %; Platelet Count 187 K/uL (130-400); RDW Coefficient of Variation 18.9 % (11.5-14.5); RDW Standard Deviation 66.8 fL (36.4-46.3); Red Blood Count 3.21 M/uL (4.2-5.4); White Blood Count 5.45 K/uL (4.8-10.8)
[2022-02-28 07:04] LABS: Alanine Aminotransferase 53 U/L (7-52); Albumin Level 2.3 gm/dl (3.4-5.0); Alkaline Phosphatase 172 U/L (34-104); Anion Gap 10 (3-11); Aspartate Aminotransferase 45 U/L (13-39); BUN Creatinine Ratio 52.8 (10-20); Bilirubin Direct 0.1 mg/dl (0-0.2); Bilirubin,Total 0.5 mg/dl (0.2-1.0); Blood Urea Nitrogen 56 mg/dl (6-23); Calcium 8.5 mg/dl (8.5-10.1); Carbon Dioxide 21 mmol/L (21-32); Chloride 132 mmol/L (98-107); Est GFR (African American) 58.2 ml/min; Est GFR (Non-African American) 50.3 ml/min; Glucose 125 mg/dl (70-99(Fasting)); Potassium 3.1 mmol/L (3.5-5.1); Sodium 163 mmol/L (136-145); Total Protein 5.8 gm/dl (6.0-8.3)
--- NOTE | 2022-02-28 07:58 | Pharmacy Report ---
Pharmacy Vanc [facility] Short Note - Date of Service February 28, 2022 - Assessment & Plan Assessment 76 year old F receiving IV Vancomycin and Zosyn for treatment of pneumonia. Pertinent microbiologic data includes: Positive MRSA Nasal Swab. Day # 2 of antimicrobial therapy. Plan Vancomycin * AUC/MELISSA is the preferred PK/PD target for vancomycin. However, patient with unstable renal function. sCr = 1.39 mg/dL upon admission and 1.06 mg/dL to day; appears baseline sCr is ~0.7 mg/dL. Therefore, will dose based on levels until renal function stabilizes. * Random level of 9.0 mcg/mL is subtherapeutic. Patient needs another dose of Vancomycin today. * Give Vancomycin 500mg (~12mg/kg) x 1 today * Random level ordered for: 03/01/22 with AM labs to reassess Pharmacy will continue to follow and will adjust dose/frequency as necessary. Thank you.
[2022-02-28] MEDS ORDERED: VANCOMYCIN HCL 500 MG in DEXTROSE 5% 100 ML IV ONE (08:00)
[2022-02-28] MEDS ORDERED: POTASSIUM ACETATE/NSS 10 MEQ/105 ML BAG IV ONE (08:30)
[2022-02-28] MEDS: DEXTROSE 5% 1,000 ML IV SCH (08:35)
[2022-02-28] MEDS: HEPARIN SOD 5,000 UNIT/0.5 ML VIAL SQ SCH ×2 (08:35→21:00)
--- NOTE | 2022-02-28 10:26 | XRay Report ---
LEFT ANKLE 2 VIEWS CLINICAL HISTORY: Exposed hardware status post open reduction and internal fixation. FINDINGS: AP and crosstable lateral views of the left ankle are compared to study dated 12/14/2016. Th e skeletal structures are heterogeneously osteopenic. No acute fracture is identified. No bony erosio n or periostitis is seen. There are 2 cortical lag screws transfixing the medial malleolus. There is been buttress plate fixation of the distal fibula. The orthopedic hardware appears intact. The ankle mortise is maintained noting degenerative change. There are large dorsal and plantar calcaneal enthes ophytes. Degenerative change is partially visualized throughout the midfoot. Degenerative spurring is seen along the dorsal aspect of the tarsal bones. Mild soft tissue edema is present around the ankle and hindfoot. IMPRESSION: 1. Mild soft tissue swelling with no acute bony abnormality identified. 2. Osteopenia with degenerative, posttraumatic, and postoperative findings as above. 3. Large heel spurs. Electronically signed by: Isai Quintanilla M.D. 02/28/2022 10:24 AM
--- NOTE | 2022-02-28 10:51 | Electrocardiogram Report ---
Test Reason : Blood Pressure : / mmHG Vent. Rate : 106 BPM Atrial Rate : 094 BPM P-R Int : 000 ms QRS Dur : 070 ms QT Int : 350 ms P-R-T Axes : 000 073 087 degrees QTc Int : 464 ms Poor data quality, interpretation may be adversely affected Sinus tachycardia Premature atrial complexes Nonspecific T wave abnormality Abnormal ECG When compared with ECG of 09-JUL-2021 13:41, Nonspecific T wave abnormality now evident in Anterior leads Confirmed by Anand Lr ([id number]) on 02/28/2022 10:51:10 AM Referred By: REFERRED SELF Confirmed By:Anand Lr
--- NOTE | 2022-02-28 11:03 | Orthopedic Consultation ---
Date of Consultation February 28, 2022 Assessment & Plan (1) Exposed orthopaedic hardware: Exposed hardware left distal lateral ankle. X-rays reviewed. No obvious signs of osteomyelitis. Osteopenia present. WBC count within normal limits. Patient however with hypotension, tachycardia, hypernatremia and hypokalemia, and ongoing pneumonia the hardware exposure has obviously been going on for some time now. Although not grossly infected in appearance, it could lead to further infections in the future. Case will be discussed with Dr. Barahona today. He will see the patient later this afternoon. Currently, I would continue daily cleansing of the wound with application of Aquacel Ag over the wound itself covered by Optifoam. Will discuss the patient's medical status with hospitalist service. Considerations would be removal of hardware in the future versus conservative wound care. History of Present Illness Reason for Consultation: Left lateral ankle open wound with hardware showing Attending Physician: Justina Inman MD History of Present Illness 76-year-old female with history of dementia, CKD stage III, hypertension, osteoporosis who is bedbound and taken care of by her grandson. Patient was admitted under the sepsis protocol. She arrived from home to the emergency room via E squad after having a choking incident while eating. Patient was notably hypoxic, hypothermic, tachypneic, tachycardic. Chest x-ray was noted with pneumonia. Per the records, patient had a slow decline over the last 2 weeks with decreased oral intake and decreased mentation. During the exam in the emergency room, it was found that she had an open wound on the left lateral ankle with hardware showing through. Patient has history of ORIF of left bimalleolar ankle fracture by Dr. Lyman in 2017. Grandson at the time stated that apparently the hardware had been showing through for some time now. Patient was admitted for further care and we have been asked to see her for the open wound with hardware showing. Currently the patient is lying in bed on 2 L of O2. She is demented and does not open her eyes to verbal or physical stimuli. She makes some moaning sounds at times whenever moving her legs around to examine them. No family is present. Allergies Allergy/AdvReac Type Severity Reaction Status Date / Time No Known Allergies Allergy Verified 02/27/22 14:50 Home Medications Medication Instructions Recorded Confirmed Type donepezil 5 mg tablet 5 mg PO DAILY 07/18/20 02/27/22 History lorazepam 0.5 mg tablet 0.5 mg PO TID PRN 07/18/20 02/27/22 History tramadol 50 mg tablet 50 mg PO Q6H PRN 07/18/20 02/27/22 History quetiapine 100 mg tablet 100 mg PO HS tab 12/17/21 02/27/22 History omeprazole 20 mg capsule,delayed 20 mg PO DAILYBB 02/27/22 02/27/22 History release quetiapine 25 mg tablet 25 mg PO HS 02/27/22 02/27/22 History tramadol 50 mg tablet 100 mg PO Q6 PRN 02/27/22 02/27/22 History Patient History Medical History CKD (chronic kidney disease), stage III Dementia History of fracture of left ankle HTN (hypertension) Osteoporosis Surgical History History of bilateral knee replacement History of cataract surgery History of total hip replacement Hx of cholecystectomy Social History Smoking Status: Unknown if ever smoked Hx Alcohol Use: No Hx Substance Use: No Preferred Language: Bengali Communication Ability: Impaired Visual Impairment: Partially Limited Hearing Ability: Normal Tax Services Professional Required: No Beliefs That Will Affect Care: None marital status: Current Living Situation: Family Current Living Situation Comment: Lives with grandaughter/[id number] Other Information That Helps Us Care for You: No Feels Safe at Home: Yes Assistive Devices: None Physical Exam Physical Exam: Patient is a 76-year-old cachectic, white female who with her dementia at this time is not responding to questions but does do some verbal moaning or unrecognizable words when examining her feet. On examination of her left lower extremity, there is an Optifoam dressing over the left lateral ankle. This is removed revealing a small open wound over the distal fibular area where hardware had been implanted for an ORIF. One screw is visible through the wound but is not overtly sticking out of the wound. The wound itself is about the size of the screw. She has some mild erythema around the edge of the wound with a very small amount of yellow slough in certain portions of the wound. There is no gross purulence. There is no foul odor. No obvious wounds on the medial ankle. Examination of the right ankle as well shows a small roughened area over the distal fibular region with no open wound. Patient does not follow commands. Results & Data ([facility]) Vital Signs (Past 12 Hours) Vital Signs Temp Pulse Pulse Resp BP Pulse Ox 02/28/22 10:56 36.4 C L 98 H 18 94/57 L 91 02/28/22 08:00 89 02/28/22 07:33 36.6 C 100 H 18 121/71 90 02/28/22 04:14 36.4 C L 94 H 18 102/67 92 02/28/22 00:43 91 H 02/27/22 23:45 36.5 C 91 H 22 105/64 93 Laboratory Results Laboratory Results WBC 5.45 K/uL (4.8-10.8) 02/28/22 06:20 RBC 3.21 M/uL (4.2-5.4) L 02/28/22 06:20 Hgb 9.1 g/dL (12.0-16.0) L 02/28/22 06:20 Hct 31.0 % (37-47) L 02/28/22 06:20 MCV 96.6 fL (80-100) 02/28/22 06:20 MCH 28.3 pg (25-34) 02/28/22 06:20 MCHC 29.4 g/dL (32-36) L 02/28/22 06:20 RDW Std Deviation 66.8 fL (36.4-46.3) H 02/28/22 06:20 RDW Coeff of [place]di 18.9 % (11.5-14.5) H 02/28/22 06:20 Plt Count 187 K/uL (130-400) 02/28/22 06:20 MPV 13.1 fL (7.4-10.4) H 02/28/22 06:20 Immature Gran % (Auto) 0.4 % 02/28/22 06:20 Neut % (Auto) 82.1 % 02/28/22 06:20 Lymph % (Auto) 12.3 % 02/28/22 06:20 [place] % (Auto) 3.9 % 02/28/22 06:20 Eos % (Auto) 1.3 % 02/28/22 06:20 Baso % (Auto) 0.0 % 02/28/22 06:20 Neut # (Auto) 4.48 K/uL (1.4-6.5) 02/28/22 06:20 Lymph # (Auto) 0.67 K/uL (1.2-3.4) L 02/28/22 06:20 [place] # (Auto) 0.21 K/uL (0.11-0.59) 02/28/22 06:20 Eos # (Auto) 0.07 K/uL (0-0.5) 02/28/22 06:20 Baso # (Auto) 0.00 K/uL (0-0.2) 02/28/22 06:20 Immature Gran # (Auto) 0.02 K/uL (0.00-0.02) 02/28/22 06:20 PT 10.3 Seconds (9.0-12.0) 02/27/22 13:21 INR 1.0 (0.9-1.1) 02/27/22 13:21 APTT 25.2 Seconds (21.0-31.0) 02/27/22 13:21 PTT Ratio 0.9 02/27/22 13:21 Sodium 163 mmol/L (136-145) H* 02/28/22 06:20 Potassium 3.1 mmol/L (3.5-5.1) L D 02/28/22 06:20 Chloride 132 mmol/L (98-107) H 02/28/22 06:20 Carbon Dioxide 21 mmol/L (21-32) 02/28/22 06:20 Anion Gap 10 (3-11) 02/28/22 06:20 BUN 56 mg/dl (6-23) H 02/28/22 06:20 Creatinine 1.06 mg/dl (0.6-1.2) D 02/28/22 06:20 Est Cr Clr Drug Dosing Not Reportable 02/28/22 06:20 Est GFR ( Amer) 58.2 ml/min 02/28/22 06:20 Est GFR (Non-Af Amer) 50.3 ml/min 02/28/22 06:20 BUN/Creatinine Ratio 52.8 (10-20) H 02/28/22 06:20 Glucose 125 mg/dl (70-99(Fasting)) H 02/28/22 06:20 Lactate 2.7 mmol/L (0.4-2.0) H* 02/27/22 15:09 Calcium 8.5 mg/dl (8.5-10.1) 02/28/22 06:20 Magnesium 2.8 mg/dl (1.7-2.4) H 02/27/22 13:21 Total Bilirubin 0.5 mg/dl (0.2-1.0) 02/28/22 06:20 Direct Bilirubin 0.1 mg/dl (0-0.2) 02/28/22 06:20 AST 45 U/L (13-39) H 02/28/22 06:20 ALT 53 U/L (7-52) H 02/28/22 06:20 Alkaline Phosphatase 172 U/L (34-104) H 02/28/22 06:20 Troponin I 0.05 ng/ml (0-0.04) H* 02/28/22 01:25 Total Protein 5.8 gm/dl (6.0-8.3) L 02/28/22 06:20 Albumin 2.3 gm/dl (3.4-5.0) L 02/28/22 06:20 Globulin 4.1 gm/dl (2.5-4.0) H 02/27/22 13:21 Albumin/Globulin Ratio 0.7 (0.9-2) L 02/27/22 13:21 Procalcitonin 0.93 ng/ml (0-0.5) H 02/27/22 13:21 Urine Color Yellow 02/27/22 14:46 Urine Appearance Slightly Cloudy (Clear) 02/27/22 14:46 Urine pH 6.0 (4.5-7.5) 02/27/22 14:46 Ur Specific [place] 1.020 (1.000-1.030) 02/27/22 14:46 Urine Protein 2+ (Negative) H 02/27/22 14:46 Urine Glucose (UA) Negative (Negative) 02/27/22 14:46 Urine Ketones Negative (Negative) 02/27/22 14:46 Urine Blood 3+ (Negative) H 02/27/22 14:46 Urine Nitrite Negative (Negative) 02/27/22 14:46 Urine Bilirubin Negative (Negative) 02/27/22 14:46 Urine Urobilinogen Negative (Negative) 02/27/22 14:46 Ur Leukocyte Esterase 1+ (Negative) H 02/27/22 14:46 Urine RBC 10-30 /hpf (0-4) H 02/27/22 14:46 Urine WBC 10-30 /hpf (0-5) H 02/27/22 14:46 Ur Epithelial Cells 5-10 /lpf (0-5) H 02/27/22 14:46 Urine Bacteria 1+ (Negative) H 02/27/22 14:46 Hyaline Casts 0-5 /lpf (0-5) 02/27/22 14:46 Nasal Screen MRSA (PCR) Positive (Negative) A 02/27/22 22:25 Random Vancomycin 9.0 mcg/ml (10-20) L 02/28/22 06:20 Adenovirus (PCR) Not Detected (NotDetected) 02/27/22 13:12 B. pertussis DNA (PCR) Not Detected (NotDetected) 02/27/22 13:12 B.parapertussis DNA PCR Not Detected (NotDetected) 02/27/22 13:12 C. pneumoniae DNA (PCR) Not Detected (NotDetected) 02/27/22 13:12 Coronavirus OC43 (PCR) Not Detected (NotDetected) 02/27/22 13:12 Coronavirus HKU1 (PCR) Not Detected (NotDetected) 02/27/22 13:12 Coronavirus 229E (PCR) Not Detected (NotDetected) 02/27/22 13:12 SARS-CoV-2 (PCR) Not Detected (NotDetected) 02/27/22 13:12 Coronavirus NL63 (PCR) Not Detected (NotDetected) 02/27/22 13:12 Human Metapneumovir PCR Not Detected (NotDetected) 02/27/22 13:12 Influenza Type A (PCR) Not Detected (NotDetected) 02/27/22 13:12 Influenza Type B (PCR) Not Detected (NotDetected) 02/27/22 13:12 M. pneumoniae (PCR) Not Detected (NotDetected) 02/27/22 13:12 Parainfluenza 1 (PCR) Not Detected (NotDetected) 02/27/22 13:12 Parainfluenza 2 (PCR) Not Detected (NotDetected) 02/27/22 13:12 Parainfluenza 3 (PCR) Not Detected (NotDetected) 02/27/22 13:12 Parainfluenza 4 (PCR) Not Detected (NotDetected) 02/27/22 13:12 RSV (PCR) Not Detected (NotDetected) 02/27/22 13:12 Entero/Rhino (PCR) Not Detected (NotDetected) 02/27/22 13:12 Impressions Chest X-Ray 02/27/22 13:09 XR chest 1V portable HISTORY: SEPSIS COMPARISON: Chest 1121. FINDINGS: No pneumothorax. The heart is normal in size. There is a large hiatus hernia, unchanged. Emphysema. Small patchy densities within the right midlung zone. There is also dense consolidation within the left mid to lower lung zone which is new from the prior study. Therefore, this likely represents a pneumonia. Prior cholecystectomy. No evidence for pulmonary edema. The bones are osteopenic. Trace left pleural effusion. IMPRESSION: 1. Interval development of consolidative airspace opacity within the left mid to lower lung zone with a few small patchy airspace opacities within the right midlung zone. This likely represents a pneumonia. 1-2 month chest x-ray follow- up recommended to ensure resolution. 2. Large hiatus hernia, unchanged. 3. Trace left pleural effusion. ACT 112: Negative or not required by law. Electronically signed by: Yony Royal M.D. 02/27/2022 1:28 PM Ankle X-Ray 02/28/22 08:50 LEFT ANKLE 2 VIEWS CLINICAL HISTORY: Exposed hardware status post open reduction and internal fixation. FINDINGS: AP and crosstable lateral views of the left ankle are compared to study dated 12/14/2016. The skeletal structures are heterogeneously osteopenic. No acute fracture is identified. No bony erosion or periostitis is seen. There are 2 cortical lag screws transfixing the medial malleolus. There is been buttress plate fixation of the distal fibula. The orthopedic hardware appears intact. The ankle mortise is maintained noting degenerative change. There are large dorsal and plantar calcaneal enthesophytes. Degenerative change is partially visualized throughout the midfoot. Degenerative spurring is seen along the dorsal aspect of the tarsal bones. Mild soft tissue edema is present around the ankle and hindfoot. IMPRESSION: 1. Mild soft tissue swelling with no acute bony abnormality identified. 2. Osteopenia with degenerative, posttraumatic, and postoperative findings as above. 3. Large heel spurs. Electronically signed by: Isai Quintanilla M.D. 02/28/2022 10:24 AM
--- NOTE | 2022-02-28 12:05 | Hospitalist Progress Note ---
Date of Service February 28, 2022 Assessment & Plan (1) Sepsis: (2) Multifocal pneumonia: (3) KATERINA (acute kidney injury): (4) Hypernatremia: Plan: Sepsis with aspiration pneumonia Likely UTI -continue vancomycin and zosyn -NPO until DIRECT RESPONSE CONSULTANT evaluation and mental status improvement Acute metabolic encephalopathy -likely due to hypernatremia Hypernatremia -Na 163 -Change IVF to D5 water at 80 cc/hr -repeat BMP at 12pm and then again at 4pm to make further adjustments Exposed hardware left ankle - Ortho evaluation Sacral decubitus ulcer - present on admission. WOCN eval. Elevated troponin - likely demand ischemia. Trend for completeness KATERINA - baseline of 0.7-0.8. Currently 1.39. Given IVF, recheck in am. Avoid nephrotoxics. Elevated LFTs - mildly elevated, likely in setting of hypoxia and acute infection. Recheck in am. Dementia - currently depressed mental status due to infection. Delirium precautions. DVT prophylaxis- sc heparin Patient has two children (daughter and son, son is not involved in her care), she is . Lives with her grand daughter and grandson who is her paid senior electronics design engineer. I spoke with her daughter, Raven, to express our concern about Aundrea's home situation and physical state when she arrived. I relayed to Raven that we will involve Office of Aging. In addition, I asked Raven to discuss with her brother regarding their mother's code status. Will call her back later today to review again. Currently she is Full code. Admission and Anticipated Discharge Date Admission Date: February 27, 2022 Subjective patient remains minimally arousable Physical Exam Physical Exam: Thin, cachetic, appears acutely ill, unarousable Respiratory: no wheezing/rhonchi/rales Cardiovascular: tachycardia, no murmurs/rubs/gallops Gastrointestinal (Abdomen): soft, non tender Musculoskeletal: left ankle with exposed hardware Neurologic: unarsouable Results & Data Results & Data ([facility]) Vital Signs (Past 12 Hours) Vital Signs Temp Pulse Pulse Resp BP Pulse Ox 02/28/22 10:56 36.4 C L 98 H 18 94/57 L 91 02/28/22 08:00 89 02/28/22 07:33 36.6 C 100 H 18 121/71 90 02/28/22 04:14 36.4 C L 94 H 18 102/67 92 02/28/22 00:43 91 H Laboratory Results Short CBC 02/27/22 02/28/22 Range/Units 13:21 06:20 WBC 8.04 5.45 (4.8-10.8) K/uL Hgb 10.9 L 9.1 L (12.0-16.0) g/dL Hct 36.0 L 31.0 L (37-47) % Plt Count 219 187 (130-400) K/uL BMP 02/27/22 02/28/22 13:21 06:20 Sodium 162 H* 163 H* Potassium 4.3 3.1 L D Chloride 127 H 132 H Carbon Dioxide 25 21 BUN 73 H 56 H Creatinine 1.39 H 1.06 D Glucose 191 H 125 H Calcium 9.4 8.5 Cardiac Enzymes 02/27/22 02/27/22 02/28/22 Range/Units 13:21 18:04 01:25 Troponin I 0.08 H* 0.07 H* 0.05 H* (0-0.04) ng/ml Liver Function 02/27/22 02/28/22 Range/Units 13:21 06:20 Total Bilirubin 0.5 0.5 (0.2-1.0) mg/dl Direct Bilirubin 0.1 (0-0.2) mg/dl AST 92 H 45 H (13-39) U/L ALT 80 H 53 H (7-52) U/L Alkaline Phosphatase 235 H 172 H (34-104) U/L Albumin 2.8 L 2.3 L (3.4-5.0) gm/dl Urine 02/27/22 Range/Units 14:46 Urine Color Yellow Urine Appearance Slightly Cloudy (Clear) Urine pH 6.0 (4.5-7.5) Ur Specific [place] 1.020 (1.000-1.030) Urine Protein 2+ H (Negative) Urine Glucose (UA) Negative (Negative) Medications Administered Current Inpatient Medications Heparin Sodium (Porcine) (Heparin Sod 5,000 Unit/0.5 Ml Vial) 5,000 units SQ Q12 [facility] Stop: 03/29/22 20:59 Last Admin: 02/28/22 08:35 Dose: 5,000 units Documented by: Piperacillin Sod/Tazobactam (Sod 3.375 gm/ Dextrose) 115 mls @ 28.75 mls/hr IV Q8H [facility]; Protocol Stop: 03/06/22 19:59 Last Admin: 02/28/22 10:50 Dose: 28.8 mls/hr Documented by: Dextrose (D5w) 1,000 mls @ 80 mls/hr IV .[id number] [facility] Stop: 03/30/22 08:14 Last Admin: 02/28/22 08:35 Dose: 80 mls/hr Documented by: Miscellaneous Information (Vancomycin Consult Active) 1 ea N/A UD PRN PRN Reason: Consult Stop: 03/29/22 13:28 Miscellaneous Information (Piperacill/Tazobac Consult Active) 1 ea N/A UD PRN PRN Reason: Consult Stop: 03/29/22 17:33
[2022-02-28 12:46] LABS: BUN Creatinine Ratio 49.5 (10-20); Calcium 8.7 mg/dl (8.5-10.1); Creatinine Clr Calc Pharmacy 31.3 ml/min; Est GFR (African American) 57.6 ml/min; Est GFR (Non-African American) 49.7 ml/min; Potassium 3.3 mmol/L (3.5-5.1)
[2022-02-28 16:35] LABS: BUN Creatinine Ratio 45.9 (10-20); Calcium 8.7 mg/dl (8.5-10.1); Creatinine Clr Calc Pharmacy 30.7 ml/min; Est GFR (African American) 56.3 ml/min; Est GFR (Non-African American) 48.6 ml/min; Potassium 3.4 mmol/L (3.5-5.1)
[2022-02-28] MEDS ORDERED: POTASSIUM CHLORIDE / WTR 10 MEQ/100 ML PLCT IV ONE (19:15)
[2022-03-01 00:36] LABS: BUN Creatinine Ratio 43.3 (10-20); Calcium 8.7 mg/dl (8.5-10.1); Creatinine Clr Calc Pharmacy 32.2 ml/min; Est GFR (African American) 59.6 ml/min; Est GFR (Non-African American) 51.4 ml/min; Potassium 3.4 mmol/L (3.5-5.1)
[2022-03-01] MEDS ORDERED: POTASSIUM CHLORIDE PWD 20 MEQ PACK PO STA (01:15)
[2022-03-01] MEDS: DEXTROSE 5% 1,000 ML IV SCH ×2 (01:19→10:11)
[2022-03-01] MEDS: POTASSIUM CHLORIDE / WTR 10 MEQ/100 ML PLCT IV SCH ×4 (01:30→11:24)
[2022-03-01] MEDS: PIPERACILLIN/TAZOBACTAM 3.375 GM in DEXTROSE 5% 100 ML IV SCH ×3 (02:52→18:16)
[2022-03-01 06:11] LABS: Hematocrit (blood only) 33.4 % (37-47); Hemoglobin 10.4 g/dL (12.0-16.0); Mean Corpuscular Hgb Conc 31.1 g/dL (32-36); Mean Platelet Volume 12.9 fL (7.4-10.4); Platelet Count 304 K/uL (130-400); RDW Coefficient of Variation 18.3 % (11.5-14.5); RDW Standard Deviation 62.2 fL (36.4-46.3); Red Blood Count 3.59 M/uL (4.2-5.4); White Blood Count 11.11 K/uL (4.8-10.8)
[2022-03-01 06:31] LABS: BUN Creatinine Ratio 42.7 (10-20); Calcium 8.8 mg/dl (8.5-10.1); Creatinine Clr Calc Pharmacy 36.4 ml/min; Est GFR (African American) 65.7 ml/min; Est GFR (Non-African American) 56.6 ml/min; Phosphorus 2.6 mg/dl (2.5-4.9); Potassium 3.3 mmol/L (3.5-5.1)
[2022-03-01] MEDS ORDERED: D5W AND 1/2NSS + 20MEQ KCL 20 MEQ/1,000 ML BAG IV SCH (06:45)
[2022-03-01] MEDS ORDERED: VANCOMYCIN HCL 750 MG in SODIUM CHLORIDE 0.9% 250 ML IV SCH (07:30)
--- NOTE | 2022-03-01 07:36 | Pharmacy Report ---
Pharmacy Vanc AUC Short Note - Date of Service March 01, 2022 - Assessment & Plan Assessment 76 year old F receiving vancomycin and Zosyn for treatment of sepsis secondary to suspected aspiration/possible MRSA pneumonia/UTI. Pertinent microbiologic data includes: Positive MRSA Nasal Swab, blood cultures x 2 show no growth at 24 hours. Continued improvement in renal function from time of admission (1.39 -> 0.96 mg/dL). Day # 3 of antimicrobial therapy. Plan Vancomycin * AUC/MELISSA is the preferred PK/PD target for vancomycin * AUC guided dosing is effective and associated with decreased risk of nephrotoxicity compared to traditional trough targets * Trough level of 11 mcg/mL is not predicted to achieve target AUC/MELISSA of 400- 600 mg/L.hr * Change to 750 mg IV every 24 hours * Level will be ordered for morning of 03/03/22 Zosyn * 3.375 g IV q8h appropriate based on BMI, renal function, and indication Pharmacy will continue to follow and will adjust dose/frequency as necessary. Thank you.
[2022-03-01] MEDS: HEPARIN SOD 5,000 UNIT/0.5 ML VIAL SQ SCH ×2 (10:04→21:10)
[2022-03-01 12:39] LABS: BUN Creatinine Ratio 40.6 (10-20); Calcium 8.4 mg/dl (8.5-10.1); Creatinine Clr Calc Pharmacy 36.4 ml/min; Est GFR (African American) 65.7 ml/min; Est GFR (Non-African American) 56.6 ml/min; Potassium 3.7 mmol/L (3.5-5.1)
--- NOTE | 2022-03-01 14:48 | Surgery Consultation ---
Date of Consultation March 01, 2022 Assessment & Plan (1) Sacral decubitus ulcer: Chart reviewed including wound care notes and pictures Not a surgical candidate at this time Will re-examine in the next few days once her medical condition improves Supervising Physician Co-Signing Physician Notes I personally saw and evaluated the patient with Derek Shea PA-C and agree with the assessment and plan. 76-year-old female with multiple medical problems and a stage IV sacral decubitus ulcer, nonhealing She has been transition to full comfort measures and will be discharged to hospice in the near future Would recommend to continue local wound care and wound dressing changes by the wound care nurses Surgical sign off at this time please call with any questions or concerns History of Present Illness Attending Physician: Justina Inman MD History of Present Illness 76 y/o female s/p debridement sacral ulcer on 07/02/21 with osteomyelitis now admitted for pneumonia related sepsis. Allergies Allergy/AdvReac Type Severity Reaction Status Date / Time No Known Allergies Allergy Verified 02/27/22 14:50 Home Medications Medication Instructions Recorded Confirmed Type donepezil 5 mg tablet 5 mg PO DAILY 07/18/20 02/27/22 History lorazepam 0.5 mg tablet 0.5 mg PO TID PRN 07/18/20 02/27/22 History tramadol 50 mg tablet 50 mg PO Q6H PRN 07/18/20 02/27/22 History quetiapine 100 mg tablet 100 mg PO HS tab 12/17/21 02/27/22 History omeprazole 20 mg capsule,delayed 20 mg PO DAILYBB 02/27/22 02/27/22 History release quetiapine 25 mg tablet 25 mg PO HS 02/27/22 02/27/22 History tramadol 50 mg tablet 100 mg PO Q6 PRN 02/27/22 02/27/22 History Patient History Medical History (Updated 03/02/22 @ 11:44 by VIN Alex) CKD (chronic kidney disease), stage III Dementia History of fracture of left ankle HTN (hypertension) Hypoxia Osteoporosis Palliative care encounter POLST (Physician Orders for Life-Sustaining Treatment) Senile degeneration of brain Surgical History History of bilateral knee replacement History of cataract surgery History of total hip replacement Hx of cholecystectomy Social History Smoking Status: Unknown if ever smoked Hx Alcohol Use: No Hx Substance Use: No Preferred Language: Kenyan Communication Ability: Impaired Visual Impairment: Partially Limited Hearing Ability: Normal [employer] Required: No Beliefs That Will Affect Care: None marital status: Current Living Situation: Family Current Living Situation Comment: Lives with grandaughter/[id number]-uli Other Information That Helps Us Care for You: No Feels Safe at Home: Yes Assistive Devices: Wheelchair Results & Data ([facility]) Vital Signs (Past 12 Hours) Vital Signs Temp Pulse Pulse Resp BP Pulse Ox 03/01/22 11:36 36.4 C L 92 H 18 116/70 95 03/01/22 08:00 114 H 03/01/22 06:31 36.6 C 101 H 20 127/77 91 03/01/22 04:29 36.5 C 101 H 19 107/68 92 PG Care Time/CCT Total # of Minutes Spent Total Time Spent with Patient: Total time spent is greater than 50% in coordination of care (as documented) at patient's floor/unit and/or counseling patient: Coding Level of Care Code None Diagnoses Sacral decubitus ulcer L89.159
[2022-03-01 17:25] LABS: BUN Creatinine Ratio 36.7 (10-20); Calcium 8.5 mg/dl (8.5-10.1); Creatinine Clr Calc Pharmacy 35.7 ml/min; Est GFR (Non-African American) 55.3 ml/min; Potassium 3.7 mmol/L (3.5-5.1)
--- NOTE | 2022-03-01 17:28 | Hospitalist Progress Note ---
Date of Service March 01, 2022 Assessment & Plan (1) Sepsis: (2) Multifocal pneumonia: (3) KATERINA (acute kidney injury): (4) Hypernatremia: Plan: Sepsis with aspiration pneumonia Likely UTI -continue vancomycin and zosyn -NPO until mental status improves Acute metabolic encephalopathy - due to hypernatremia Hypernatremia -Na 163--> slowly improved down to 155 -continue D5 Water at 100cc/hr -repeat BMP 4 hours until Na normalizes Exposed hardware left ankle - Ortho evaluation Sacral decubitus ulcer - present on admission. WOCN eval. Surgical evaluation--appreciate input Elevated troponin - likely demand ischemia. KATERINA - baseline of 0.7-0.8. improved with IVF Elevated LFTs - mildly elevated, likely in setting of hypoxia and acute infection. Severe protein malnutrition -If we are to continue full, aggressive care--> she should have NGT for tube feeds while she remains NPO to help with nutritional status with her multiple wounds. DVT prophylaxis- sc heparin I spoke with daughter, Raven, today and reviewed mom's poor clinical picture and prognosis. I suggested a Palliative Care consult to set up family meeting to discuss goals of care. Raven is in agreement. Admission and Anticipated Discharge Date Admission Date: February 27, 2022 Subjective Na slowly improving Patient reportedly opens her eyes to a hard sternal rub but otherwise remains obtunded I spoke with Raven, her daughter, today and we discussed the role of Palliative Medicine. Raven is agreeable for consult Episodes of bradycardia on telemetry Physical Exam Physical Exam: Thin, cachetic, obtunded ENMT: temporal muscle wasting Respiratory: Mouth breathing, no wheezing/rhonchi/rales Cardiovascular: regular rate and rhythm, no murmurs/rubs/gallops Gastrointestinal (Abdomen): thin Musculoskeletal: thin, exposed hardware on ankle Skin: known sacral ulcer to bone Neurologic: obtunded Results & Data Results & Data ([facility]) Vital Signs (Past 12 Hours) Vital Signs Temp Pulse Pulse Resp BP Pulse Ox 03/01/22 15:17 36.4 C L 85 17 109/66 97 03/01/22 11:36 36.4 C L 92 H 18 116/70 95 03/01/22 08:00 114 H 03/01/22 06:31 36.6 C 101 H 20 127/77 91 Laboratory Results Short CBC 03/01/22 Range/Units 05:26 WBC 11.11 H (4.8-10.8) K/uL Hgb 10.4 L (12.0-16.0) g/dL Hct 33.4 L (37-47) % Plt Count 304 D (130-400) K/uL BMP 02/28/22 03/01/22 03/01/22 23:50 05:26 11:49 Sodium 157 H* 156 H* 155 H Potassium 3.4 L 3.3 L 3.7 Chloride 125 H 125 H 127 H Carbon Dioxide 21 20 L 21 BUN 45 H 41 H 39 H Creatinine 1.04 0.96 0.96 Glucose 112 H 85 106 H Calcium 8.7 8.8 8.4 L 03/01/22 16:36 Sodium 152 H Potassium 3.7 Chloride 123 H Carbon Dioxide 20 L BUN 36 H Creatinine 0.98 Glucose 129 H Calcium 8.5 Medications Administered Current Inpatient Medications Heparin Sodium (Porcine) (Heparin Sod 5,000 Unit/0.5 Ml Vial) 5,000 units SQ Q12 [facility] Stop: 03/29/22 20:59 Last Admin: 03/01/22 10:04 Dose: 5,000 units Documented by: Piperacillin Sod/Tazobactam (Sod 3.375 gm/ Dextrose) 115 mls @ 28.75 mls/hr IV Q8H [facility]; Protocol Stop: 03/06/22 19:59 Last Infusion: 03/01/22 15:24 Dose: Infused Documented by: Dextrose (D5w) 1,000 mls @ 100 mls/hr IV .Q10H [facility] Stop: 03/31/22 09:14 Last Admin: 03/01/22 10:11 Dose: 100 mls/hr Documented by: Vancomycin HCl 750 mg/ Sodium (Chloride) 265 mls @ 200 mls/hr IV DAILY@0800 [facility] Stop: 03/09/22 07:59 Miscellaneous Information (Vancomycin Consult Active) 1 ea N/A UD PRN PRN Reason: Consult Stop: 03/29/22 13:28 Miscellaneous Information (Piperacill/Tazobac Consult Active) 1 ea N/A UD PRN PRN Reason: Consult Stop: 03/29/22 17:33
[2022-03-01 20:49] LABS: BUN Creatinine Ratio 35.7 (10-20); Calcium 8.3 mg/dl (8.5-10.1); Creatinine Clr Calc Pharmacy 35.7 ml/min; Est GFR (Non-African American) 55.3 ml/min; Potassium 3.7 mmol/L (3.5-5.1)
[2022-03-01] MEDS ORDERED: ALBUMIN 25% 12.5 GM/50 ML VIAL IV ONE (21:27)
[2022-03-02 00:21] LABS: BUN Creatinine Ratio 35.5 (10-20); Calcium 8.4 mg/dl (8.5-10.1); Creatinine Clr Calc Pharmacy 37.6 ml/min; Est GFR (African American) 68.2 ml/min; Est GFR (Non-African American) 58.9 ml/min; Potassium 3.6 mmol/L (3.5-5.1)
[2022-03-02] MEDS: PIPERACILLIN/TAZOBACTAM 3.375 GM in DEXTROSE 5% 100 ML IV SCH (02:10)
[2022-03-02 06:36] LABS: Hematocrit (blood only) 30.9 % (37-47); Hemoglobin 9.9 g/dL (12.0-16.0); Mean Corpuscular Hemoglobin 29.6 pg (25-34); Mean Corpuscular Volume 92.2 fL (80-100); Mean Platelet Volume 11.9 fL (7.4-10.4); Platelet Count 230 K/uL (130-400); RDW Standard Deviation 60.7 fL (36.4-46.3); Red Blood Count 3.35 M/uL (4.2-5.4); White Blood Count 6.48 K/uL (4.8-10.8)
[2022-03-02 07:11] LABS: BUN Creatinine Ratio 34.9 (10-20); Calcium 8.4 mg/dl (8.5-10.1); Creatinine Clr Calc Pharmacy 40.7 ml/min; Est GFR (Non-African American) 64.7 ml/min; Magnesium 1.9 mg/dl (1.7-2.4); Phosphorus 3.6 mg/dl (2.5-4.9); Potassium 3.2 mmol/L (3.5-5.1)
[2022-03-02] MEDS ORDERED: VANCOMYCIN HCL 750 MG in SODIUM CHLORIDE 0.9% 250 ML IV SCH (08:00)
[2022-03-02] MEDS: HEPARIN SOD 5,000 UNIT/0.5 ML VIAL SQ SCH (08:10)
[2022-03-02] MEDS: DEXTROSE 5% 1,000 ML IV SCH (08:10)
--- NOTE | 2022-03-02 09:53 | Palliative Care Consultation ---
Date of Consultation March 02, 2022 Assessment & Plan (1) Palliative care encounter: Ms. Aundrea Daley is a 76 year old female, known to Palliative Medicine from previous admission (07/06/21) who presented to the [facility] from home after experiencing dysphagia and an episode of choking, following by hypoxia. Her SpO2 was 77% as checked by EMS on arrival to their home. She was placed on Bipap and was determined to have met sepsis criteria based on hypothermia, tachycardia, tachypnea, and elevated Lactic Acid. She has had ongoing challenges following a previous right ankle ORIF that was performed a few years ago, including exposed hardware. Orthopedics has seen and evaluated her, and currently suggest a conservative approach to her care. The patient also has a sacral decubitus with cellulitis as well. While the patient is currently cared for by her granddaughter through [facility] A[facility], there has been a considerable decline with decreased oral intake, persistent altered mental status, and decreased urine output. Palliative medicine was consulted to discuss overall goals of ca re. I was able to meet with the patient in her room. She was awake and looking at me; however, when she spoke, only mumbled a few nonsensical words.She, of course, is not appropriate to hold a goals of care conversation with. The patient was having auditory secretions as I was in the room. No fixed gaze. I was able to talk to her daughter, Raven, on the phone at [phone]. She stated that her daughter has been primarily her paid caregiver through office of aging and that her overall decline has been quite evident over the past 5-6 months. She stated that she has spoken with the whole family and all are in agreement to shift to a more conservative and comfort focused approach to her care. I did discontinue all non essential meds, including IV abx after discussing with the patients daughter. I ordered the follow comfort medications: * Roxanol 5 mg PO Q6 PRN ordered for air hunger * Atropine gtts 4 gtts SL Q3 PRN for secretions * Zyprexa 2.5 mg SL Q 8 PRN agitation We did discuss her goals regarding nutrition and she was in agreement that avoiding feeding tubes or artificial nutrition/hydration is important to them. I discussed rather focusing on keeping her mucus membranes moist, along with her lips. OK for permissive aspiration if awake enough to eat. We discussed continuing current medication/treatments while here in the hospital and transitioning to comfort measures upon discharge, but she was in support of a full comfort transition here. I did set the expectation that with her reduced PO intake, that her life expectancy has been shortened to likely days to a week or so; although I would not be surprised if she over the next few days. Family has discussed home with hospice vs SNF with hospice and they were in agreement that if she would be stable, she would like to see her go to [facility] with Hospice support. Palliative will follow while here inpatient. (2) Senile degeneration of brain: Patient with worsening mental status, decreased PO intake, decreased urine output. FAST score: all of 6 and up to 7d. Patient certainly would qualify for Hospice services Due to progression of dementia, I personally do not feel that she would be a good candidate for acute rehab. (3) Hypoxia: SPO2 77% on admission. She was on Bipap, now on 4L oxymask. Transitioning to a more KINESEOLOGIST approach. Roxanol 5 mg PO Q6 PRN ordered for air hunger Atropine gtts 4 gtts SL Q3 PRN for secretions Zyprexa 2.5 mg SL Q 8 PRN agitation (4) POLST (Physician Orders for Life-Sustaining Treatment): POLST completed over the phone with the patients daughter, Raven. Copy and original placed on the chart. POLST indicates: DNR/DNI, KINESEOLOGIST, trial abx, no artificial nutrition/hydration. OK for permissive aspiration if awake enough to eat. History of Present Illness Reason for Consultation: Goals of Care Requesting Physician: Dr. Inman Attending Physician: Justina Inman MD History of Present Illness Ms. Aundrea Daley is a 76 year old female, known to Palliative Medicine from previous admission (07/06/21) who presented to the [facility] from home after experiencing dysphagia and an episode of choking, following by hypoxia. Her SpO2 was 77% as checked by EMS on arrival to their home. She was placed on Bipap and was determined to have met sepsis criteria based on hypothermia, tachycardia, tachypnea, and elevated Lactic Acid. She has had ongoing challenges following a previous right ankle ORIF that was performed a few years ago, including exposed hardware. Orthopedics has seen and evaluated her, and currently suggest a conservative approach to her care. The patient also has a sacral decubitus with cellulitis as well. While the patient is currently cared for by her granddaughter through [facility], there has been a considerable decline with decreased oral intake, persistent altered mental status, and decreased urine output. Palliative medicine was consulted to discuss overall goals of care. Please see A/P for further details. Thanks for involving Palliative Medicine with this patient. Allergies Allergy/AdvReac Type Severity Reaction Status Date / Time No Known Allergies Allergy Verified 02/27/22 14:50 Home Medications Medication Instructions Recorded Confirmed Type donepezil 5 mg tablet 5 mg PO DAILY 07/18/20 02/27/22 History lorazepam 0.5 mg tablet 0.5 mg PO TID PRN 07/18/20 02/27/22 History tramadol 50 mg tablet 50 mg PO Q6H PRN 07/18/20 02/27/22 History quetiapine 100 mg tablet 100 mg PO HS tab 12/17/21 02/27/22 History omeprazole 20 mg capsule,delayed 20 mg PO DAILYBB 02/27/22 02/27/22 History release quetiapine 25 mg tablet 25 mg PO HS 02/27/22 02/27/22 History tramadol 50 mg tablet 100 mg PO Q6 PRN 02/27/22 02/27/22 History Patient History Medical History (Updated 03/02/22 @ 11:44 by VIN Alex) CKD (chronic kidney disease), stage III Dementia History of fracture of left ankle HTN (hypertension) Hypoxia Osteoporosis Palliative care encounter POLST (Physician Orders for Life-Sustaining Treatment) Senile degeneration of brain Surgical History History of bilateral knee replacement History of cataract surgery History of total hip replacement Hx of cholecystectomy Social History Smoking Status: Unknown if ever smoked Hx Alcohol Use: No Hx Substance Use: No Preferred Language: Hungarian Communication Ability: Impaired Visual Impairment: Partially Limited Hearing Ability: Normal Dialysis Technician Required: No Beliefs That Will Affect Care: None marital status: Current Living Situation: Family Current Living Situation Comment: Lives with grandaughter/cfdfhndj-[id number] Other Information That Helps Us Care for You: No Feels Safe at Home: Yes Assistive Devices: Wheelchair Review of Systems Review of Systems: [place] System Assessment Scale: By observation: Pain: 1/3 SOB: 1/3 Anxiety: 0/3 Lack of appetite: 0/3 Palliative Performance Scale: 20% Physical Exam Constitutional: + thin, + cachectic, + frail appearing and comfortable ENMT: Mouth: + dry oral mucous membranes Respiratory: normal respiratory effort Auscultation: + diminished lung sounds and + crackles (auditory inspiration/expiration) Cardiovascular: Rate/Rhythm: regular rate and regular rhythm Extremities: normal capillary refill; no pedal edema Gastrointestinal (Abdomen): Inspection/Auscultation: abdomen normal to inspe ction Percussion/Palpation: abdomen soft Skin: + pallor Psychiatric: Orientation: alert Insight: + impaired insight Judgement: + impaired judgement Results & Data ([facility]) Vital Signs (Past 12 Hours) Vital Signs Temp Pulse Pulse Pulse Resp BP Pulse Ox 03/02/22 08:15 16 95 03/02/22 07:07 36.4 C L 84 19 93/57 L 95 03/02/22 03:12 36.4 C L 92 H 19 102/69 91 03/01/22 23:11 36.4 C L 86 16 101/57 L 98 03/01/22 22:18 60 PG Care Time/CCT Total # of Minutes Spent Total Time Spent with Patient: Total time spent is greater than 50% in coordination of care (as documented) at patient's floor/unit and/or counseling patient: 100 minutes Coding Level of Care Code 16734 Initial Inpt Care Lvl 3 Diagnoses Palliative care encounter Z51.5 Senile degeneration of brain G31.1 Hypoxia R09.02 POLST (Physician Orders for Life-Sustaining Treatment) Z78.9 Time Spent (min) 100
[2022-03-02] MEDS ORDERED: ATROPINE SULFATE 1% OP SOLN 5 ML BTL OP PRN (11:13)
[2022-03-02] MEDS ORDERED: MoRPHine SULFATE 5 MG/0.25 ML UDP PO PRN (11:13)
[2022-03-02] MEDS ORDERED: OLANZAPINE 2.5 MG TAB PO PRN (11:14)
[2022-03-02] MEDS: ATROPINE SULFATE 1% OP SOLN 5 ML BTL SL PRN (12:19)
[2022-03-02 13:21] LABS: BUN Creatinine Ratio 33.7 (10-20); Calcium 8.4 mg/dl (8.5-10.1); Creatinine Clr Calc Pharmacy 40.7 ml/min; Est GFR (Non-African American) 64.7 ml/min; Potassium 3.3 mmol/L (3.5-5.1)
--- NOTE | 2022-03-02 14:32 | Hospitalist Progress Note ---
Date of Service March 02, 2022 Assessment & Plan (1) Sepsis: (2) Multifocal pneumonia: (3) KATERINA (acute kidney injury): (4) Hypernatremia: Plan: Comfort measures only -Palliative care, appreciate input--Discussed with daughterRaven, and family have requested to transition to comfort measures. If patient survives, then transition to facility with hospice. All IVF, antibiotics, and life sustaining/non comfort focused medications were discontinued -Allow diet and permissive aspiration Sepsis with aspiration pneumonia Likely UTI -antibiotics discontinued Acute metabolic encephalopathy -due to hypernatremia Hypernatremia -IV fluids discontinued Other active medical conditions Exposed hardware left ankle Sacral decubitus ulcer Elevated troponin KATERINA Elevated LFTs Severe protein malnutrition DVT ppx discontinued. Patient will be transferred to med/surg. CM contacted to help facilitate hospice Admission and Anticipated Discharge Date Admission Date: February 27, 2022 Subjective More awake today. Opens her eyes but unable to have any meaningful conversation Physical Exam Physical Exam: thin, cachetic, no acute distress Respiratory: coarse breath sounds, no wheezing, no accessory muscle use Cardiovascular: regular rate and rhythm, no murmurs/rubs/gallops Gastrointestinal (Abdomen): soft Musculoskeletal: thin, muscle atrophy, ankle with exposed hardware Skin: known sacral ulcer Neurologic: awake (yesterday was obtunded), does not follow commands, does not answer questions Results & Data Results & Data ([facility]) Vital Signs (Past 12 Hours) Vital Signs Temp Pulse Pulse Resp BP Pulse Ox 03/02/22 08:15 16 95 03/02/22 07:07 36.4 C L 84 19 93/57 L 95 03/02/22 03:12 36.4 C L 92 H 19 102/69 91 Laboratory Results Short CBC 03/02/22 Range/Units 05:51 WBC 6.48 (4.8-10.8) K/uL Hgb 9.9 L (12.0-16.0) g/dL Hct 30.9 L (37-47) % Plt Count 230 (130-400) K/uL BMP 03/01/22 03/01/22 03/01/22 16:36 20:22 23:49 Sodium 152 H 150 H 149 H Potassium 3.7 3.7 3.6 Chloride 123 H 122 H 123 H Carbon Dioxide 20 L 20 L 20 L BUN 36 H 35 H 33 H Creatinine 0.98 0.98 0.93 Glucose 129 H 106 H 69 L Calcium 8.5 8.3 L 8.4 L 03/02/22 03/02/22 05:51 12:20 Sodium 151 H 153 H Potassium 3.2 L 3.3 L Chloride 123 H 124 H Carbon Dioxide 20 L 20 L BUN 30 H 29 H Creatinine 0.86 0.86 Glucose 76 73 Calcium 8.4 L 8.4 L Medications Administered Current Inpatient Medications Atropine Sulfate (Atropine Sulfate 1% Op Soln 5 Ml Btl) 4 drops SL Q3H PRN PRN Reason: secretions Stop: 04/01/22 11:14 Last Admin: 03/02/22 12:19 Dose: 4 drops Documented by: Morphine Sulfate (Morphine Sulfate 5 Mg/0.25 Ml Udp) 5 mg PO Q6H PRN PRN Reason: Pain/dyspnea Stop: 03/16/22 11:12 Olanzapine (Olanzapine 2.5 Mg Tab) 2.5 mg PO Q8H PRN PRN Reason: terminal agitation Stop: 04/01/22 11:14
[2022-03-03] MEDS: ATROPINE SULFATE 1% OP SOLN 5 ML BTL SL PRN (07:21)
[2022-03-03] MEDS ORDERED: VANCOMYCIN RANDOM LEVEL ONE (07:30)
--- NOTE | 2022-03-03 13:10 | Hospitalist Progress Note ---
Date of Service March 03, 2022 Assessment & Plan (1) Sepsis: (2) Multifocal pneumonia: (3) KATERINA (acute kidney injury): (4) Hypernatremia: Plan: per Dr. Inman's notes with addendum: Comfort measures only -Palliative care, appreciate input--Discussed with daughterRaven, and family have requested to transition to comfort measures. If patient survives, then transition to facility with hospice. All IVF, antibiotics, and life sustaining/non comfort focused medications were discontinued -Allow diet and permissive aspiration 03/03 appears comfortable overall no signs of pain, distress continue PRN meds appreciate Palliative Care Service input Sepsis with aspiration pneumonia Likely UTI -antibiotics discontinued Acute metabolic encephalopathy -due to hypernatremia Hypernatremia -IV fluids discontinued Other active medical conditions Exposed hardware left ankle Sacral decubitus ulcer Elevated troponin KATERINA Elevated LFTs Severe protein malnutrition DVT ppx discontinued. Patient will be transferred to med/surg. CM contacted to help facilitate hospice Admission and Anticipated Discharge Date Admission Date: February 27, 2022 Subjective ff up for comfort measures status only seen resting in bed, sitting up on 4 L NC awake, not oriented, not answering questions not in distress, appears comfortable per RN, patient would eat a few bites no other new issues Review of Systems Review of Systems: all noted and negative except for above Physical Exam Physical Exam: General- oriented x 3, not in distress, speaks in sentences with no effort or accessory muscle use Eyes- anicteric Neck- no JVD Lungs- clear BS bilaterally, no rales/wheezes Heart- normal rate, regular rhythm; no murmurs Abdomen- normal bowel sounds, nondistended, soft, nontender Extremities- no pretibial edema, no calf tenderness Neuro- alert, oriented x 3; no gross focal neurologic deficits Skin- warm & dry
[2022-03-04] MEDS: ATROPINE SULFATE 1% OP SOLN 5 ML BTL SL PRN (04:51)
--- NOTE | 2022-03-04 13:19 | Hospitalist Progress Note ---
Date of Service March 04, 2022 Assessment & Plan (1) Sepsis: (2) Multifocal pneumonia: (3) KATERINA (acute kidney injury): (4) Hypernatremia: Plan: per Dr. Inman's notes with addendum: Comfort measures only -Palliative care, appreciate input--Discussed with daughterRaven, and family have requested to transition to comfort measures. If patient survives, then transition to facility with hospice. All IVF, antibiotics, and life sustaining/non comfort focused medications were discontinued -Allow diet and permissive aspiration 03/04 appears comfortable overall no signs of pain, distress on my exam continue PRN meds appreciate Palliative Care Service input 1:28pm patient uncomfortable as per RN changed Roxanol from q6h to q3h Positive Covid test RNA NAAT - discussed with Infection Ctrl Dept - Isolate for now Cepheid test today, if negative, repeat Cepheid on Tuesday, if negative, d/c isolation Sepsis with aspiration pneumonia Likely UTI -antibiotics discontinued Acute metabolic encephalopathy -due to hypernatremia Hypernatremia -IV fluids discontinued Other active medical conditions Exposed hardware left ankle Sacral decubitus ulcer Elevated troponin KATERINA Elevated LFTs Severe protein malnutrition DVT ppx discontinued. Admission and Anticipated Discharge Date Admission Date: February 27, 2022 Subjective ff up for comfort measures status, etc seen sitting up in bed, not in distress awake, but non verbal does not appear to have any pain, discomfort, shortness of breath no other issues per label rewinder of Systems Review of Systems: all noted and negative except for above Physical Exam Physical Exam: General- oriented x 0, not in distress, breathing with no effort or accessory muscle use Eyes- anicteric Neck- no JVD Lungs- clear breath sounds bilaterally Heart- normal rate, regular rhythm; no murmurs Abdomen- normal bowel sounds, nondistended, soft, nontender Extremities- no pretibial edema, no calf tenderness Neuro- alert, oriented x 0; no gross focal neurologic deficits Skin- warm & dry
[2022-03-04] MEDS: MoRPHine SULFATE 5 MG/0.25 ML UDP PO PRN ×2 (14:25→21:42)
[2022-03-04 14:36] LABS: Influenza A virus by PCR Negative (Neg); Influenza B virus by PCR Negative (Neg); RSV by PCR Negative (Neg)
[2022-03-04 14:49] LABS: SARS CoV2 RNA(COVID-19) InHosp POSITIVE (Negative)
--- NOTE | 2022-03-04 16:37 | Palliative Care Progress Note ---
Date of Service March 04, 2022 Assessment & Plan Admission and Anticipated Discharge Date Admission Date: February 27, 2022 PG Care Time/CCT Total # of Minutes Spent Total Time Spent with Patient: Total time spent is greater than 50% in coordination of care (as documented) at patient's floor/unit and/or counseling patient: Coding
[2022-03-05] MEDS: ATROPINE SULFATE 1% OP SOLN 5 ML BTL SL PRN ×2 (10:00→15:07)
[2022-03-05] MEDS: MoRPHine SULFATE 5 MG/0.25 ML UDP PO PRN (11:44)
--- NOTE | 2022-03-05 13:23 | Hospitalist Progress Note ---
Date of Service March 05, 2022 Assessment & Plan (1) Sepsis: (2) Multifocal pneumonia: (3) KATERINA (acute kidney injury): (4) Hypernatremia: Plan: per Dr. Inman's notes with addendum: Comfort measures only -Palliative care, appreciate input--Discussed with daughterRaven, and family have requested to transition to comfort measures. If patient survives, then transition to facility with hospice. All IVF, antibiotics, and life sustaining/non comfort focused medications were discontinued -Allow diet and permissive aspiration 03/05 appears comfortable overall no signs of pain, distress on my exam continue PRN meds discussed with RN appreciate Palliative Care Service input Positive Covid test RNA NAAT - discussed with Infection Ctrl Dept - Isolate for now Cepheid also positive - continue Isolation Sepsis with aspiration pneumonia Likely UTI -antibiotics discontinued Acute metabolic encephalopathy -due to hypernatremia Hypernatremia -IV fluids discontinued Other active medical conditions Exposed hardware left ankle Sacral decubitus ulcer Elevated troponin KATERINA Elevated LFTs Severe protein malnutrition DVT ppx discontinued. Admission and Anticipated Discharge Date Admission Date: February 27, 2022 Subjective ff up for comfort measures status seen resting in bed, sleeping awakens to verbal stimuli eyes opened but not looking at examiner, non verbal occasionally makes sounds not in distress no signs of pain appears comfortable no other issues per cafeteria counter attendant of Systems Review of Systems: all noted and negative except for above Physical Exam Physical Exam: General- alert, not in distress, breathing with no effort or accessory muscle use Eyes- anicteric Neck- no JVD Lungs- mild crackles at the bases Heart- normal rate, regular rhythm; no murmurs Abdomen- normal bowel sounds, nondistended, soft, nontender Extremities- no pretibial edema Neuro- as per above Skin- warm & dry
[2022-03-06] MEDS: MoRPHine SULFATE 5 MG/0.25 ML UDP PO PRN ×2 (05:55→10:45)
[2022-03-06] MEDS ORDERED: SCOPOLAMINE 1 MG TDSY TD SCH (08:30)
[2022-03-06] MEDS ORDERED: STAT IV Infusion **Titration per Protocol STA (11:23)
[2022-03-06] MEDS ORDERED: MoRPHine SULF/NSS 250 MG/250 ML BTL IV SCH (11:30)
[2022-03-06] MEDS ORDERED: CHECK SCOPOLAMINE PATCH PLACEMENT SCH (16:00)
--- NOTE | 2022-03-06 17:52 | Hospitalist Progress Note ---
Date of Service March 06, 2022 delayed entry date of service noted above Assessment & Plan (1) Sepsis: (2) Multifocal pneumonia: (3) KATERINA (acute kidney injury): (4) Hypernatremia: Plan: per Dr. Inman's notes with addendum: Comfort measures only -Palliative care, appreciate input--Discussed with daughterRaven, and family have requested to transition to comfort measures. If patient survives, then transition to facility with hospice. All IVF, antibiotics, and life sustaining/non comfort focused medications were discontinued -Allow diet and permissive aspiration 03/06 comfortable overall no signs of pain, distress on my exam continue PRN meds discussed with RN appreciate Palliative Care Service input Positive Covid test RNA NAAT - discussed with Infection Ctrl Dept - Isolate for now Cepheid also positive - continue Isolation Sepsis with aspiration pneumonia Likely UTI -antibiotics discontinued Acute metabolic encephalopathy -due to hypernatremia Hypernatremia -IV fluids discontinued Other active medical conditions Exposed hardware left ankle Sacral decubitus ulcer Elevated troponin KATERINA Elevated LFTs Severe protein malnutrition DVT ppx discontinued. Admission and Anticipated Discharge Date Admission Date: February 27, 2022 Subjective ff up for comfort measures only seen resting in bed, comfortable, peaceful no signs of distress Review of Systems Review of Systems: Unobtainable due to cognitive status Physical Exam Physical Exam: General- breathing with no effort or accessory muscle use Lungs- clear BS
--- NOTE | 2022-03-22 09:42 | Discharge Summary ---
Date of Service March 22, 2022 Admission HPI Per Admitting Provider 76 year old female with dementia, bed bound at baseline who presented to the ED from home via EMS for choking and hypoxia. Her grandson is her paid caregiver and provided most of the history due to the condition of the patient. States that she has been worsening over the past 2 weeks with decreased oral intake and decreased mentation. Also had decreased urine output. She had [facility] home visit on Tuesday and her exam was said to be unremarkable. Today, while eating she had choking and EMS was called. Her oxygen saturation was in 77% and was started on bipap. In the ED, she was hypothermic, tachypneic, tachycardic, Placed on shefali hugger, continued on BIPAP and given IVF with antibiotics. Multiple lab abnormalities, CXR with Pnuemonia. Hospitalist service was consulted for admission. Saw and examined patient at bedside in presence of his grandson. States she had sacral decubitus ulcer and exposed left ankle screw for a while now, she completed 2 weeks of antibiotics in Mid November. Orthopedics referral was madex2 but they have not heard since. She was also evaluated by ID in Mid january. Admission Exam Per Admitting Provider General: Sick looking, frail elderly female on bipap, on shefali hugger, not in acute distress HEENT: EOMI, MAHSA, dry Chest: fair breath sounds anteriorly CVS: Tachycardic, normal heart sounds, no murmur Abdomen: Soft, non tender, not distended, normal bowel sounds Sacral decubitus ulcer Neuro: Awake, alert, lethargic, unintelligible speech Extremities: No cyanosis, clubbing or edema. Left ankle with screw visible Principal Diagnosis (1) Sepsis: (2) Multifocal pneumonia, COVID 19 infection (3) KATERINA (acute kidney injury): (4) Hypernatremia: Discharge Exam General- breathing with no effort or accessory muscle use Lungs- clear BS Discharge Data Allergies Allergy/AdvReac Type Severity Reaction Status Date / Time No Known Allergies Allergy Verified 02/27/22 14:50 Consultations 02/27/22 14:43 ED Decision to Admit Stat 03/01/22 17:54 Consult Palliative Care Routine Hospital Course (1) Sepsis: (2) Multifocal pneumonia: (3) KATERINA (acute kidney injury): (4) Hypernatremia: per Dr. Inman's notes with addendum: (1) Sepsis: (2) Multifocal pneumonia, COVID 19 infection (3) KATERINA (acute kidney injury): (4) Hypernatremia: - initially treated with IV Vanco and Zosyn D5 Water however, still had poor clinical picture family decided to transition to comfort measures Comfort measures only -Palliative care, appreciate input--Discussed with daughter, Raven, and family have requested to transition to comfort measures. If patient survives, then transition to facility with hospice. All IVF, antibiotics, and life sustaining/non comfort focused medications were discontinued -Allow diet and permissive aspiration 03/06 comfortable overall no signs of pain, distress on my exam pronounced in the afternoon Positive Covid test RNA NAAT - discussed with Infection Ctrl Dept - Isolate for now Cepheid also positive - continue Isolation Total Time Total Time Spent Total Time Spent (In Minutes): >30 minutes Discharge Plan Discharge Items Patient Disposition: Other Date/Time: 03/06/22 15:41
--- NOTE | 2022-03-23 05:26 | Coding Query ---
CODING QUERY To promote full compliance with coding requirements relating to patient care, provider participation is requested in all cases of production mechanic tin cans uncertainty. Please assist us with the question(s) below: Coding Question(s): Please document cause of . Thank you. [place] Physician's Response(s): COVID 19 pneumonia Principal Diagnosis: "that condition established after study, to be chiefly responsible for occasioning the admission of the patient to the hospital for care." Co-Existing Principal Diagnosis: "when two or more diagnoses equally meet the criteria for principal diagnosis as determined by the circumstances of admission, diagnostic work up, and/or therapy provided, and the Alphabetic Index, Tabular List, or another coding guideline does not provide sequencing direction, any one of the diagnoses may be sequenced first." "When the physician has documented what appears to be a current diagnosis in the body of the record, but has not included the diagnosis in the final diagnostic statement, the physician should be asked whether the diagnosis should be added." (Source [facility]oding [facility] 2 QTR90. p3-4) [facility]
== END 2022-03-06 18:33 | disposition expired | DRG 871 ==
LOC: ED 12:59 → 2S 15:56 → SUATTDRO 15:56 → 2S 16:32 → 3E 03-02 16:25
DX: N17.9 Acute kidney failure, unspecified; N39.0 Urinary tract infection, site not specified; Z66 Do not resuscitate; I24.8 Other forms of acute ischemic heart disease; L89.623 Pressure ulcer of left heel, stage 3; R64 Cachexia; U07.1 COVID-19; Z51.5 Encounter for palliative care; N18.30 Chronic kidney disease, stage 3 unspecified; E87.0 Hyperosmolality and hypernatremia; T84.498A Other mechanical complication of other internal orthopedic devices, implants and grafts, initial encounter; I12.9 Hypertensive chronic kidney disease with stage 1 through stage 4 chronic kidney disease, or unspecified chronic kidney disease; E43 Unspecified severe protein-calorie malnutrition; M86.9 Osteomyelitis, unspecified; J12.82 Pneumonia due to coronavirus disease 2019; F03.90 Unspecified dementia, unspecified severity, without behavioral disturbance, psychotic disturbance, mood disturbance, and anxiety; Z74.01 Bed confinement status; G93.41 Metabolic encephalopathy; L89.154 Pressure ulcer of sacral region, stage 4; Z96.653 Presence of artificial knee joint, bilateral; M81.0 Age-related osteoporosis without current pathological fracture; L89.526 Pressure-induced deep tissue damage of left ankle; A41.89 Other specified sepsis